=== PATIENT | female | born 1950 | race Caucasian/White ===

== ENCOUNTER 2022-01-27 12:44 | Outpatient (CLI) | payer MEDICARE, SELFPAY ==
[2022-01-27 09:26] LABS: Albumin* 4.7 g/dL (3.3-5.0); Chloride* 100 mmol/L (96-114)
[2022-01-27 09:27] LABS: Potassium* 4.4 mmol/L (3.6-5.1); Sodium* 138 mmol/L (135-149)
[2022-01-27 09:29] LABS: Bilirubin Total* 0.5 mg/dL (0.1-1.5); Blood Urea Nitrogen* 19 mg/dL (7-30); Carbon Dioxide* 30 mmol/L (20-32); Cholesterol* 180 mg/dL (90-199); Creatinine* 0.7 mg/dL (0.5-1.5); Estimated Glomerular Filt Rate 91 ml/min; Total Protein* 7.1 g/dL (6.0-8.3)
[2022-01-27 09:30] LABS: Alanine Aminotransferase* 25 U/L (4-35); Alkaline Phosphatase* 63 U/L (40-150); Aspartate Amino Transferase* 31 U/L (12-35); Calcium* 10.1 mg/dL (8.4-10.6); Glucose* 107 mg/dL (60-115); HDL Cholesterol* 68 mg/dL (>=50); LDL Cholesterol Calculated 98 mg/dL (<100); Triglycerides* 69 mg/dL (40-149)
[2022-01-27 09:46] LABS: Vitamin D 25 Hydroxy* 39 ng/mL (30-80)
== END 2022-01-27 12:45 | disposition home or self-care (01) ==
PROVIDERS: PCP Family Medicine; Visit Provider Family Medicine
DX: Z00.00 Encounter for general adult medical examination without abnormal findings (principal); I10 Essential (primary) hypertension; E78.5 Hyperlipidemia, unspecified
CPT/HCPCS: 80053; 80061; 82306

== ENCOUNTER 2022-03-19 09:56 | Outpatient (CLI) | payer MEDICARE, SELFPAY ==
--- OUTSIDE RECORDS SUMMARY | 2022-03-19 09:58 | XMS_ITS | Encounter Summary ---
:1950 Author Organization [place] Address [address] [facility] [place] [address] Care Team Providers Name Role Phone Wendy Gonzalez Primary Care Provider Reason for Visit FARZANEH Occupational Therapy (Routine) - Closed Specialty Diagnoses / Procedures Referred By Contact Refer red To Contact Occupational Therapy Diagnoses Harriett Hand / Dr. Wendy Gonzalez @ [facility] / Medicare & Aetna Wendy Gonzalez [facility] Procedures HAND INITIAL [facility] [address] [place] [address] [address] [place] [address] Phone: Referral ID Status Reason Start Date Expiration Date Visits Requ ested Visits Authorized [id number] Closed 06/08/2018 06/08/2019 30 30 Encounter Details Date Type Department Care Team Description 06/08/2018 Therapy Visit [facility] June, Bilateral thumb pain (Primary Dx); Rehabilitation Services Prasanna Ordoñez osteoarthritis of both first carpometacarpal joints [facility] [address] [place] [address] [facility] [phone] ID [id number] Social History Tobacco Use Types Packs/Day Years Used Date Smoking Tobacco: Never Assessed Sex Assigned at Date Recorded Not on file documented as of this encounter Progress Notes Smita Watkins, CHINO - 06/08/2018 12:00 PM CST Hand Therapy Initial Evaluation Current Date: 06/08/2018 Diagnosis: B CMC OA DOI/ orders: 06/05/18 Referring MD: Wendy Gonzalez Subjective: Starla Watkins is a 67 year old R hand dominant female. Patient reports symptoms of pain and weakness/loss of strength of the bilateral thumbs which occurred due to OA. Left is worse than right. Since onset symptoms are Gradually getting worse.?? Special tests:?? x-ray.?? Previous treatment: none.? General health as reported by patient is excellent.?? Pertinent medical history includes:Asthma, Heart Problems, Osteoarthritis?? Medical allergies:Chlora prep. Surgical history: other: Hysterectomy.?? Medication history: Statin. 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 no limitations Barriers include:none Mobility: No difficulty Transportation: drives Leisure activities/hobbies: Sculpture work, gardening Functional Outcome Measure: See flowsheet Objective: Pain Level Report VAS(0-10) 06/08/2018 At Rest: 0-1/10 With Use: 06/25 Report of Pain: Location: thumb Pain Quality: Aching and Sharp Frequency: intermittent Pain is worst: daytime or nighttime Exacerbated by: Opening jars, abducting thumb Relieved by: otc medications Progression: Slowing getting worse ROM: Pain Report: - none + mild ++ moderate +++ severe Thumb 06/08/2018 AROM(PROM) R L MP 60 60 IP 55 55 RAbd 50 50 PAbd 45 45 Kapandji Opposition Scale (0-10/10) 10 10 Thumb Observation/Appearance: Robison: + = present/ - = not observed 06/08/2018 Shoulder deformity present over CMC R:+ L:+ Volar subluxation present R:- L:- Edema over the CMC joint R:- L:- Noted collapse of MP into hyperextension during pinch R:+ L:+ Tenderness at CMC R:- L:+ Provocative Tests: Pain Report: - none + mild ++ moderate +++ severe MMT 5/06/08/2018 Abduction stress test R:4/5 + L: 4/5 + Extension stress test R:5/5 + L:5/5 + Strength: (Measured in pounds) Pain Report: - none + mild ++ moderate +++ severe Sales Audit Clerk 06/08/2018 Trials R L 1 55 45 Lat Pinch 06/08/2018 Trials R L 1 15 12 Assessment: Patient presents with symptoms consistent with diagnosis of CMC thumb arthritis, with conservative intervention. 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 Rehab Potential: Good- Return to full activity, some limitations. Patient will benefit from skilled Occupational Therapy to increased ROM, flexibility, and stability of the thumb and decrease pain to return to previous activity level and resume normal daily tasks andto reach their rehab potential. Barriers to Learning: No barrier Communication Issues: Patient appears to be able to clearly communicate and understand verbal and written communication and follow directions correctly. Chart Review: Chart Review and Simple history review with patient Identified Performance Deficits: dressing, home establishment and management, meal preparation and cleanup and leisure activities Assessment of Occupational Performance: 1-3 Performance Deficits Clinical Decision Making (Complexity): Low complexity Treatment Explanations: The following has been discussed with the patient, Rx ordered/plan of care Anticipated outcomes Possible risks and side effects Plan: Frequency: 1 X week, once daily Duration: for 4 weeks Treatment Plan: Modalities: Paraffin Therapeutic Exercise: AROM, Isometrics, and Stabilization exercises of the Thumb CMC, including active and resisted abduction, 1st DI strengthening Manual Techniques: Joint Mobilization or reseating of the trapezium, self MFR to thumb adductor withclip Orthosis fabrication: Hand based Thumb Spica, Custom neoprene support Education: Anatomy of CMC, joint protection principles, adaptive equipment as needed Discharge Plan: Achieve all LTG Crowley in home treatment program. Reach maximal therapeutic benefit. Home Program: Hand based Thumb Spica orthosis for work/heavy tasks such as sculpting Next Visit: Warmth 1st web release with clip Self CMC mobilization on chest Place and hold pinch Thumb Stabilization Program with hard ???C??? and index abd Incorporate joint protection into daily functional activities Adaptive equipment as needed Comfort Cool PRN at night MINER documented in this encounter Plan of Treatment Not on filedocumented as of this encounter Procedures Procedure Name Priority Date/Time Associated Diagnosis Comme nts HC OT MEAGAN ANTHONY Routine 06/08/2018 1:08 PM Bilateral Candice mb Pain COMPLEXITY LEAD MINER Primary Osteoarthritis Of Both First Carpometacarpal Joints documented in this encounter Visit Diagnoses Diagnosis Bilateral thumb pain - Primary Primary osteoarthritis of both first car pometacarpal joints Primary localized osteoarthrosis, hand documented in this encounter Care Teams Planning Technician Relationship Specialty Start Date End Date Wendy Gonzalez PCP - General Family Practice 06/08/18 documented as of this encounter
--- OUTSIDE RECORDS SUMMARY | 2022-03-19 09:58 | XMS_ITS | Encounter Summary ---
:1950 Author Organization [place] Address [address] [place] [address]. [place] [address] Care Team Providers Name Role Phone Unavailable Primary Care Provider Unavailable Encounter Details Date Type Department Care Team Description 01/31/2006 Historic Results INTERFACED REPORT Interface, Naomie escobar MD Social History Tobacco Use Types Packs/Day Years Used Date Smoking Tobacco: Never Assessed Sex Assigned at Date Recorded Not on file documented as of this encounter Plan of Treatment Not on filedocumented as of this encounter Procedures Procedure Name Priority Date/Time Associated Diagnosis Comme nts EKG 12 LEAD Routine 01/31/2006 9:48 AM Results f or this CDT procedure are i n the results section . documented in this encounter Results EKG 12 LEAD (01/31/2006 9:48 AM CDT) Component Value Ref Range Test Analysis Performed Pathologis t Method Time At Signature Ventricular Rate 62 BPM RADIOLOGY RESULTS Atrial Rate 62 BPM RADIOLOGY RESULTS LA Interval 150 ms RADIOLOGY RESULTS QRS Duration 96 ms RADIOLOGY RESULTS QT 404 ms RADIOLOGY RESULTS QTc 410 ms RADIOLOGY RESULTS P [place] 57 degrees RADIOLOGY RESULTS R AXIS 74 degrees RADIOLOGY RESULTS T [place] 51 degrees RADIOLOGY RESULTS Interpretation AGE AND GENDER SPECIFIC ECG ANALYSIS RADIOLOGY ECG Sinus rhythm with sinus arrhythmia RESULTS Possible Left atrial enlargement Borderline ECG Unconfirmed report - interpretation of this ECG is compute r generated - see medical record for final interpretation Specimen Anatomical Collection Method Collection Time Receive d Time (Source) Location / / Volume Laterality 01/31/2006 9:48 AM 6 6:11 CDT PM CDT Transcripton Interface ECG ORDERABLES Performing Organization Address City/State/ZIP Code Phon e Number RADIOLOGY RESULTS documented in this encounter Visit Diagnoses Not on filedocumented in this encounter
--- OUTSIDE RECORDS SUMMARY | 2022-03-19 09:58 | XMS_ITS | Encounter Summary ---
:1950 Author Organization [place] Address [facility] [place] [address] Care Team Providers Name Role Phone Unavailable Primary Care Provider Unavailable Encounter Details Date Type Department Care Team Description 01/31/2006 Emergency room Tiffanie Norwood EMERGENCY PHYSIC [place] [place] [address] [place] [address] (Wo rk) Social History Tobacco Use Types Packs/Day Years Used Date Smoking Tobacco: Never Assessed Sex Assigned at Date Recorded Not on file documented as of this encounter Progress Notes Interface, Broodmare Barn Groom - 03/19/2006 1:34 AM CHEF DE PARTIE FINAL CHIEF COMPLAINT: Chest pain. HISTORY OF PRESENT ILLNESS: The patient is a 55-year-old female who started having upper back pain,and now she is having pain into her chest. She has had some nausea and diaphoresis, no shortness of breath, no arm pain or radiation into the neck. She describes the chest pain as a throbbing pain, nowit is more just a slight discomfort. She also has had a little bit of a cough but no fevers, and no chest pain at this time is on the left side of her chest, and when it happens, it lasts 1-2 hours. PAST MEDICAL HISTORY: Unremarkable. PAST SURGICAL HISTORY: Unremarkable. SOCIAL HISTORY: Unremarkable. Patient does not smoke. FAMILY HISTORY: There is a history of heart disease in the family. REVIEW OF SYSTEMS: As noted in HPI. All other systems are negative. MEDICATIONS: See attached medication list. ALLERGIES: Advair. PHYSICAL EXAMINATION: GENERAL: The patient is alert and cooperative. VITAL SIGNS: Blood pressure 169/94, pulse 78, respiratory rate 18, temperature 97.8 and O2 sats 98%on room air. HEENT: Head is normocephalic and atraumatic. Pupils are equal, round and reactive to light. EOMs are intact. Oropharynx is pink, moist and intact. No lesions noted. External auditory canals are without drainage. NECK: Supple, full range of motion is noted. CARDIAC: Regular rate and rhythm without murmurs. PULMONARY: Clear bilaterally, no rhonchi or wheezes. ABDOMEN: Soft, positive bowel sounds and nontender. EXTREMITIES: Normal strength, normal range of motion. Pulses full and symmetric. Sensation appears normal. There is no lower extremity edema present. NEUROLOGIC: Cranial nerves II through XII appear grossly intact. SKIN: [place], warm and dry. EMERGENCY DEPARTMENT COURSE: The patient was placed on continuous pulse oximetry, drapery sewer hand and blood pressure monitor. I did not appreciate any ectopy on the drapery sewer hand. An EKG was obtained, and it was a normal sinus rhythm, ventricular rate of 66, OK, QRS, were normal. The patient's troponin was less than 0.04, myoglobin 45. Hemogram and platelet count was normal. Basic metabolic count was normal. A CAT scan of the chest to rule out the possibility of PE was completed and was negative for any acute findings, although she did have one enlarged hilar lymph node. The patient's pain went away on its own in the ED. DIAGNOSIS: Chest pain. PLAN: The patient to be admitted to CPEU for second set of enzymes and stress echo. Electronically signed on 03/19/2006 01:34 by TIFFANIE NORWOOD MD MT: [id number] Name: STARLA CAMILO MRN: [id number] Account: [id number] : 1950 Visit Date: 01/31/2006 Document: [id number] DE PARTIE documented in this encounter Plan of Treatment Not on filedocumented as of this encounter Visit Diagnoses Not on filedocumented in this encounter
--- OUTSIDE RECORDS SUMMARY | 2022-03-19 09:58 | XMS_ITS | Encounter Summary ---
:1950 Author Organization [place] Address [address] [place] [address]. [place] [address] Care Team Providers Name Role Phone Wendy Gonzalez Primary Care Provider Encounter Details Date Type Department Care Team Description 03/04/2021 Travel Social History Tobacco Use Types Packs/Day Years Used Date Smoking Tobacco: Never Assessed Sex Assigned at Date Recorded Not on file COVID-19 Exposure Response Date Recorded In the last month, have you been in contact with No / Unsure 03/04/2021 9:50 AM MAKER UP FOLDING someone who was confirmed or suspected to have Coronavirus / COVID-19? documented as of this encounter Plan of Treatment Not on filedocumented as of this encounter Visit Diagnoses Not on filedocumented in this encounter Care Teams Shoe Cleaner Relationship Specialty Start Date End Date Wendy Gonzalez PCP - General Family Practice 06/08/18 documented as of this encounter
--- OUTSIDE RECORDS SUMMARY | 2022-03-19 09:58 | XMS_ITS | Clinical Summary ---
:1950 Author Organization [facility] [place] [address] Care Team Providers Name Role Phone Vikki Crump MD Primary Care Provider [phone] Allergies No known active allergies Medications Medication Sig Dispensed Refills Start Date End Date Status MOXIFLOXACIN 0.1% Use as directed 0.2 mL 0 11/01/2016 Active INTRACAMERAL INJECTION for procedure. 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 White coat syndrome with diagnosis of hypertension Social History Tobacco Use Types Packs/Day Years Used Date Never Assessed Sex Assigned at Date Recorded Not on file Plan of Treatment Health Maintenance Due Date Last Done Comments COVID-19 vaccine series (#1) 1950 Tdap 06/23/1959 Depression screening for age 12+ 1960 BMI (ht and wt on same day) for age 18+ 1966 Hepatitis C screening for age 18-79 1966 Tetanus booster 1968 Colonoscopy through age 75 1993 Lipids for age 45-75 1993 Mammogram for age 45-75 1993 Zoster (shingles) series for age 50+ (1 of 2) 1998 DEXA/DXA scan for age 65+ 2013 Medicare Wellness for age 65+ 2013 Pneumococcal series for age 65+ (1 - PCV) 2013 Influenza for age 65+ 12/17/2021 Results Not on filefrom Last 3 Months Insurance Payer Benefit Plan / Subscriber ID Effective Dates Phone Addre ss Type Group Resource[employer] [id number] 2020-Present [address] [place] [address] Care Teams Customer Account Executive Relationship Specialty Start Date End Date Vikki Crump MD PCP - General Family Practice 04/28/201999 [place] [address]
--- OUTSIDE RECORDS SUMMARY | 2022-03-19 09:58 | XMS_ITS | Encounter Summary ---
:1950 Author Organization [place] Address [address] [place] [place] [address] Care Team Providers Name Role Phone Wendy Gonzalez Primary Care Provider Encounter Details Date Type Department Care Team Description 06/15/2018 Travel Social History Tobacco Use Types Packs/Day Years Used Date Smoking Tobacco: Never Assessed Sex Assigned at Date Recorded Not on file documented as of this encounter Plan of Treatment Not on filedocumented as of this encounter Visit Diagnoses Not on filedocumented in this encounter Care Teams Load Out Person Relationship Specialty Start Date End Date Wendy Gonzalez PCP - General Family Practice 06/08/18 documented as of this encounter
--- OUTSIDE RECORDS SUMMARY | 2022-03-19 09:58 | XMS_ITS | Encounter Summary ---
:1950 Author Organization [place] Address [address] [place] [address] Care Team Providers Name Role Phone Wendy Gonzalez Primary Care Provider Reason for Visit FARZANEH Occupational Therapy (Routine) - Closed Specialty Diagnoses / Procedures Referred By Contact Refer red To Contact Occupational Therapy Diagnoses Bilat Hand / Dr. Wendy Gonzalez @ [facility] / Medicare & Aetna Wendy Gonzalez [facility] Procedures HAND INITIAL [facility] [address] [place] [address] [address] [place] [address] Phone: Referral ID Status Reason Start Date Expiration Date Visits Requ ested Visits Authorized [id number] Closed 06/08/2018 06/08/2019 30 30 Encounter Details Date Type Department Care Team Description 06/15/2018 Therapy Visit [facility] June, Bilateral hand pain Rehabilitation Services João boles OTR (Primary Dx) [facility] [place] [id number] [facility] [id number] [place] [address] [address] [place] [address] [place] [address] [phone] Social History Tobacco Use Types Packs/Day Years Used Date Smoking Tobacco: Never Assessed Sex Assigned at Date Recorded Not on file documented as of this encounter Plan of Treatment Not on filedocumented as of this encounter Procedures Procedure Name Priority Date/Time Associated Diagnosis Comme nts ZZC THERAPEUTIC Routine 06/18/2018 9:50 PM 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
--- OUTSIDE RECORDS SUMMARY | 2022-03-19 09:58 | XMS_ITS | Encounter Summary ---
:1950 Author Organization [place] Address [address] [facility] [place] [address] Care Team Providers Name Role Phone Unavailable Primary Care Provider Unavailable Encounter Details Date Type Department Care Team Description 01/31/2006 Emergency room Nancy Orr MD EMERGENCY PHYSIC [facility] [address] [place], [place] [address] (Wo rk) Social History Tobacco Use Types Packs/Day Years Used Date Smoking Tobacco: Never Assessed Sex Assigned at Date Recorded Not on file documented as of this encounter Progress Notes Nancy Orr MD - 05/11/2006 12:24 PM DIRECTOR INTELLIGENCE ANALYSIS PROGRAMS FINAL CPEU ADDENDUM EMERGENCY DEPARTMENT COURSE: The patient is a 55-year-old female admitted to CPEU by Dr. Norwood. Please review his dictation. The patient was seen and evaluated for chest and back pain. The patient was admitted to CPEU and had 2 sets of cardiac enzymes, all of which were negative. She was ordered a CT of the chest. This was negative for dissection. There was a slightly prominentright hilar lymph node, but otherwise normal. The patient did not have dissection and no PE. The patient was admitted to CPEU for evaluation of cardiac chest pain. Her second enzyme was negative. She was sent for stress test this morning around 11:00 a.m. This was read by Dr. Ghotra as completely normal. I did return to discuss symptoms with the patient. The patient seems to have 2 symptoms, including upper back pain for the last month. She also has intermittent chest pain. Chest pain is very atypical, is not associated with exertion or respiration. Ultimately, her stress test and her CT of the chestwere both normal here. I did return to discuss symptoms with the patient. We discussed treatment forpain. At least at this point, we will offer some medications for musculoskeletal back pain and have her follow up with her regular doctor for reevaluation. The patient did agree to the plan and will be discharged. PLAN: Follow up with Dr. Walden for reevaluation. Return with worsening symptoms. Ibuprofen, Valium 2.5-5 as a muscle relaxant. If still pain, Vicodin, dispensed 15. Follow up with Dr. Walden in thenext 5-7 days for reevaluation. DISCHARGE DIAGNOSES: 1. Atypical chest pain. 2. Possible musculoskeletal back pain. Electronically signed on 05/11/2006 12:23 by NANCY ORR MD MT: [id number] Name: STARLA CAMILO Account: [id number] : 1950 Visit Date: 01/31/2006 Document: [id number] CTOR INTELLIGENCE ANALYSIS PROGRAMS documented in this encounter Plan of Treatment Not on filedocumented as of this encounter Visit Diagnoses Not on filedocumented in this encounter
--- OUTSIDE RECORDS SUMMARY | 2022-03-19 09:58 | XMS_ITS | Encounter Summary ---
:1950 Author Organization [place] Address [address] [facility] [place] [address] Care Team Providers Name Role Phone Wendy Gonzalez Primary Care Provider Reason for Visit FARZANEH Occupational Therapy (Routine) - Closed Specialty Diagnoses / Procedures Referred By Contact Refer red To Contact Occupational Therapy Diagnoses Bilkm Hand / Dr. Wendy Gonzalez @ [facility] / Medicare & Aetna Wendy Gonzalez [facility] Procedures HAND INITIAL [facility] [address] [place] [address] [address] [place] [address] Phone: Referral ID Status Reason Start Date Expiration Date Visits Requ ested Visits Authorized [id number] Closed 06/08/2018 06/08/2019 30 30 Encounter Details Date Type Department Care Team Description 06/28/2018 Therapy Visit [facility] June, Bilateral hand pain Rehabilitation Services CHINO Weber (Primary Dx) [facility] [place] [id number] [place] [address] [address] [place] [address] [place] [address] [phone] Social History Tobacco Use Types Packs/Day Years Used Date Smoking Tobacco: Never Assessed Sex Assigned at Date Recorded Not on file documented as of this encounter Progress Notes Smita Watkins OTR - 06/28/2018 10:00 AM CDT Discharge Note - Hand Therapy Current Date: 06/08/2018 Diagnosis: B CMC OA YURI/ orders: 06/05/18 Referring MD: Wendy Gonzalez Current Date: 06/28/2018 Initial Evaluation Date: 06/08/18 Reporting period is from 06/08/18 to 06/28/2018 Number of Visits: 3 Subjective: Subjective changes as noted by patient: The left handed custome neoprene orthosis for night was veryhelpful in reducing pain, woke up with less pain in the moring. The thermoplastic orthoses are helping during the day as well to reduce pain with work tasks. Would like an orthosis for the right hand for night time. Pt also stated the AE handout was helpful and that she is indep with her HEP. Pt agrees to be discharged from hand therapy today and cont. HEP. Functional changes noted by patient: Improvement in Recreational Activities and Inspector Aide Patient has noted adverse reaction to: None Functional Outcome Measure: See flowsheet Objective: Pain Level Report VAS(0-10) 06/08/2018 06/29/18 At Rest: 0-1/10 0-1/10 With Use: 06/2510 Assessment: Response to therapy has been improvement to: Pain: frequency is less and intensity of pain is decreased Appropriateness of Rx I have re-evaluated this patient and find that the nature, scope, duration andintensity of the therapy is appropriate for the medical condition of the patient. Overall Assessment: Patient's symptoms are resolving. Patient is independent in home exercise program. Patient is ready to be discharged from therapy and continue their home treatment program. STG/LTG: See goal sheet for details and updates. Plan: Frequency/Duration: Discharge from Hand Therapy; continue home program. Home Program: Hand based Thumb Spica orthosis for house work/heavy tasks such as sculpting Warmth 1st web release with clip Thumb Stabilization Program with hard ???C??? and index abd Incorporate joint protection into daily functional activities Adaptive equipment as needed Comfort It Auditor with custom cmc support at night documented in this encounter Plan of Treatment Not on filedocumented as of this encounter Procedures Procedure Name Priority Date/Time Associated Diagnosis Comme [facility] THERAPEUTIC Routine 06/28/2018 1:12 PM CDT Bilateral hand pain EXERCISES documented in this encounter Visit Diagnoses Diagnosis Bilateral hand pain - Primary Pain in limb documented in this encounter Care Teams Water Plant Pump Operator Supervisor Relationship Specialty Start Date End Date Wendy Gonzalez PCP - General Family Practice 06/08/18 documented as of this encounter
--- OUTSIDE RECORDS SUMMARY | 2022-03-19 09:58 | XMS_ITS | Encounter Summary ---
:1950 Author Organization [facility] Address [address] [place] [id number] Care Team Providers Name Role Phone Wendy Gonzalez Primary Care Provider Encounter Details Date Type Department Care Team Description 06/08/2018 Travel Social History Tobacco Use Types Packs/Day Years Used Date Smoking Tobacco: Never Assessed Sex Assigned at Date Recorded Not on file documented as of this encounter Plan of Treatment Not on filedocumented as of this encounter Visit Diagnoses Not on filedocumented in this encounter Care Teams Coordinator Volunteer Services Relationship Specialty Start Date End Date Wendy Gonzalez PCP - General Family Practice 06/08/18 documented as of this encounter
--- OUTSIDE RECORDS SUMMARY | 2022-03-19 09:58 | XMS_ITS | Clinical Summary ---
:1950 Author Organization [facility] Address [address] [place] [address]. [place] [address] Care Team Providers Name Role Phone Wendy Gonzalez Primary Care Provider Active Problems Problem Noted Date Osteoarthritis of both thumbs 03/04/2021 Resolved Problems Problem Noted Date Resolved Date Bilateral hand pain 06/15/2018 06/28/2018 Social History Tobacco Use Types Packs/Day Years Used Date Smoking Tobacco: Never Assessed Sex Assigned at Date Recorded Not on file Plan of Treatment Health Maintenance Due Date Last Done Comments ADVANCE CARE PLANNING 1950 ANNUAL REVIEW OF HM ORDERS 1950 CT COLONOGRAPHY 1950 DEXA 1950 FIT-DNA (Cologuard) 1950 FIT 1950 FLEX SIG 1950 MAMMO SCREENING 1950 COLONOSCOPY 1958 COLORECTAL CANCER SCREENING 1958 HEPATITIS C SCREENING 1966 LIPID 1993 FALL RISK ASSESSMENT 2013 MEDICARE ANNUAL WELLNESS 2013 VISIT PHQ-2 (once per calendar 04/18/2021 year) COVID-19 Vaccine (4 - 04/22/2021 02/25/2021, 07/10/2020, Booster for Moderna series) 06/12/2020 INFLUENZA VACCINE (#1) 2021 01/19/2021, 12/17/2019, 01/30/2019, Additional history exists DTAP/TDAP/TD IMMUNIZATION 11/09/2022 11/09/2012, 06/19/2008 , (3 - Td or Tdap) 01/10/1998 Pneumococcal Vaccine: 65+ Completed 12/09/2014, 12/05/2013 Years ZOSTER IMMUNIZATION Completed 02/19/2020, 12/20/2019, 11/23/2011 IPV IMMUNIZATION Aged Out No longer eligi ble based on patient 's age to complete this topic MENINGITIS IMMUNIZATION Aged Out No longe r eligible based on patient 's age to complete this topic Insurance Payer Benefit Plan / Subscriber ID Effective Dates Phone Addre ss Type Group [employer] SocialSmack [id number] 2021-Theo [phone] [id number] Medicare AETNA MEDICARE t 1 [facility] [id number] Care Teams Policy Value Calculator Relationship Specialty Start Date End Date Wendy Gonzalez PCP - General Family Practice 06/08/18
--- OUTSIDE RECORDS SUMMARY | 2022-03-19 09:58 | XMS_ITS | Encounter Summary ---
:1950 Author Organization [facility] Address [facility] [place] [address] Care Team Providers Name Role Phone Wendy Gonzalez Primary Care Provider Reason for Visit Rehab Therapy Occupational Therapy (Routine) - Closed Specialty Diagnoses / Procedures Referred By Contact Refer red To Contact Occupational Therapist Diagnoses *CERT REQUIRED#Thumbs/hand / Dr. Carmel Crump MD / Medicare Aetna -TTC ins Vikki Crump [facility] Hand / Occupational Procedures HAND INITIAL MD [facility] Therapy - MEDICAL [id number] [place] [address] [place], [place] Fax: [phone] Phone: Fax: Referral ID Status Reason Start Date Expiration Date Visits Requ ested Visits Authorized [id number] Closed 03/04/2021 04/17/2021 40 40 Encounter Details Date Type Department Care Team Description 03/04/2021 Therapy Visit [facility] Cathie Yip, Osteoar thritis of both Rehabilitation Services OT thumbs (Primary Dx) [employer] [facility] [address] [place] [address] [place], [place] [address] [address] [place] [address] [phone] Social History Tobacco Use Types Packs/Day Years Used Date Smoking Tobacco: Never Assessed Sex Assigned at Date Recorded Not on file COVID-19 Exposure Response Date Recorded In the last month, have you been in contact with No / Unsure 03/04/2021 9:50 AM WOOD HEEL BACK LINER someone who was confirmed or suspected to have Coronavirus / COVID-19? documented as of this encounter Progress Notes Cathie Yip, OT - 03/04/2021 10:00 AM CST Hand Therapy Initial Evaluation Current Date: 03/04/2021 Diagnosis: B thumb OA DOI: ~2018 (01/19/2021 order date) Subjective: Starla Watkins is a 70 year old female. Patient reports symptoms of the bilateral thumbs which occurred due to gradual onset. Since onset symptoms are Unchanged General health as reported by patient is good. Pertinent medical history includes:High Blood Pressure, History of Fractures, Osteoarthritis Medical allergies: see chart. Surgical history: other: hysterectomy. Medication history: High Blood Pressure. 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 Previous treatment: hand therapy in 2019 Barriers include:none Mobility: No difficulty Transportation: drives Currently working in normal job without restrictions Leisure activities/hobbies: dog breeding/showing, sculptures Other: Pt requested splints only, reported compliance with previous HEP Functional Outcome Measure: Upper Extremity Functional Index Score: SCORE: Column Totals: /80: 72 (A lower score indicates greater disability.) Objective: Pain Level (Scale 0-10) 03/04/2021 At Rest 04/27 With Use 04/27 Pain Description Date 03/04/2021 Location hand and thumb Pain Quality Aching and Dull Frequency intermittent Pain is worst daytime Exacerbated by gardening, sculpture work, housework Relieved by heat, rest and splints Progression Unchanged Thumb Observation/Appearance - none + mild ++ moderate +++ severe 03/04/2021 Shoulder deformity present over CMC R: ++ L: ++ Edema over the CMC joint R: +++ L: + Noted collapse of MP into hyperextension during pinch R: ++ L: + Palpation Pain Report: - none + mild ++ moderate +++ severe 03/04/2021 CMC Joint Line R: + L: + Thenar Stickney R: + L: + Web Space R: + L: + 1st DC R: - L: - Radial Styloid R: - L: - FCR R: - L: - Assessment: Patient presents with symptoms consistent with diagnosis of bilateral thumb CMC thumb arthritis, with conservative intervention. Patient's limitations or Problem List includes: Pain, Weakness and Decreased stability of the bilateral thumb which interferes with the patient's ability to perform Self Care Tasks (dressing, eating, bathing, hygiene/toileting), Work Tasks, Sleep Patterns, Recreational Activities, Induction Coordination Power Engineer andDriving as compared to previous level of function. Rehab Potential: Good - Return to full activity, some limitations Patient will benefit from skilled Occupational Therapy to increase overall strength and decrease pain to return to previous activity level and resume normal daily tasks and to reach their rehab potential. Barriers to Learning: No barrier Communication Issues: Patient appears to be able to clearly communicate and understand verbal and written communication and follow directions correctly. Chart Review: Chart Review, Brief history including review of medical and/or therapy records relating to the presenting problem and Simple history review with patient Identified Performance Deficits: bathing/showering, feeding, functional mobility, home establishmentand management, meal preparation and cleanup, shopping, work and leisure activities Assessment of Occupational Performance: 3-5 Performance Deficits Clinical Decision Making (Complexity): Low complexity Treatment Explanation: The following has been discussed with the patient: RX ordered/plan of care Anticipated outcomes Possible risks and side effects Treatment Plan: Modalities: US, Fluidotherapy and Paraffin Therapeutic Exercise: AROM, AAROM, PROM, Tendon Gliding, Blocking, Reverse Blocking, Place and Hold,Contract Relax, Extensor Tracking, Isotonics, Isometrics and Stabilization Neuromuscular re-education: Nerve Gliding, Coordination/Dexterity, Sensory re- education, Desensitization, Kinesthetic Training, Proprioceptive Training, Posture, Kinesiotaping, Strain Counter Strain, Isometrics, Stabilization Manual Techniques: Coordination/Dexterity, Joint mobilization, Scar mobilization, Friction massage, Myofascial release, Manual edema mobilization Orthotic Fabrication: Hand based Self Care: Self Care Tasks, Ergonomic Considerations and Work Tasks Discharge Plan: Achieve all LTG [place] in home treatment program. Reach maximal therapeutic benefit. Home Program: Warmth Self CMC mobilization Thumb Stabilization Program Hand based Thumb Spica Orthosis Incorporate joint protection into daily functional activities Adaptive equipment as needed Next Visit: Check fit of orthoses Place and hold pinch Self mobilization HEEL BACK LINER Cathie Yip OT - 03/04/2021 10:00 AM CST Images from the original note were not included. [facility] OUTPATIENT Occupational Therapy ORTHOPEDIC EVALUATION PLAN OF TREATMENT FOR OUTPATIENT REHABILITATION (COMPLETE FOR INITIAL CLAIMS ONLY) Patient's Last Name, First Name, M.I. Date of : 1950 Starla Watkins A Provider???s Name: [facility] Start of Care Date: 03/04/21 Onset Date: 01/19/21 (MD order date) Type: ___PT __X_OT Medical Diagnosis: No diagnosis found. 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 Physician Signature Date X Certification Date From: 03/04/21 Certification Date To: 06/01/21 Referring Provider: Vikki Crump Initial Assessment See Epic Evaluation SOC Date: 03/04/21 HEEL BACK LINER Cathie Yip OT - 03/04/2021 10:00 AM CST Discharge Summary - Hand Therapy Patient did not return to therapy. Assume all goals were met to patient's satisfaction. D/C from hand therapy. HEEL BACK LINER documented in this encounter Plan of Treatment Not on filedocumented as of this encounter Procedures Procedure Name Priority Date/Time Associated Diagnosis Comme nts AL OT EVAL, LOW Routine 03/04/2021 12:17 PM Osteoarthritis of both COMPLEXITY WOOD HEEL BACK LINER thumbs documented in this encounter Visit Diagnoses Diagnosis Osteoarthritis of both thumbs - Primary documented in this encounter Care Teams Cord Splicer Relationship Specialty Start Date End Date Wendy Gonzalez PCP - General Family Practice 06/08/18 documented as of this encounter
--- OUTSIDE RECORDS SUMMARY | 2022-03-19 09:58 | XMS_ITS | Encounter Summary ---
:1950 Author Organization [facility] Address [address] [place] [address]. [place] [address] Care Team Providers Name Role Phone Unavailable Primary Care Provider Unavailable Encounter Details Date Type Department Care Team Description 01/31/2006 Results Only [facility] Results [facility] [place] [address] [place] [address] (Wo rk) Social History Tobacco Use Types Packs/Day Years Used Date Smoking Tobacco: Never Assessed Sex Assigned at Date Recorded Not on file documented as of this encounter Plan of Treatment Not on filedocumented as of this encounter Procedures Procedure Name Priority Date/Time Associated Diagnosis Comme [facility] E[facility] HEART Routine 01/31/2006 11:02 AM Resul ts for this XTHORACIC, CDT procedure are i n STRESS/REST the results section. CT THORAX W/O Routine 01/31/2006 7:00 AM Resul ts for this CONT CDT procedure are i n the results section. documented in this encounter Results ECHO HEART, FULL STRESS/REST (01/31/2006 11:02 AM CDT) Anatomical Region Laterality Modality Other Specimen (Source) Anatomical Collection Method Collection Time Re ceived Time Location / / Volume Laterality 01/31/2006 11:02 AM CDT Impressions 02/03/2006 9:19 AM CDT Tape #[id number] ?? Technologist Initials: ??JT ?? HISTORY: ??The patient is a 55-year-old female who presents for 3-4 days of chest discomfort. ??Resting bloo d pressure 122/88. ??Heart rate 97 and regular. ??Electrocardiogram demo nstrates normal sinus rhythm without ST or T wave abnormalities. ?? INTERPRETATION: 1. ??The patient exercised 9 minutes 14 seconds on a Taz protocol achieving a maximal heart rate of 166, m aximal blood pressure 190/78, and a rate pressure product of 31,540. ? ?This represents 102% of the target maximal heart rate. ??There is no functional aerobic impairment. ??The patient was able to ac hieve 10.4 METS of cardiac work. 2. ??The test is stopped due to fatigue . ??The patient did not experience chest discomfort. 3. ??Occasional premature ventricular c ontractions were seen late in exercise and rarely in recovery. ??No co mplex ectopy. ??The EKG demonstrated no significant ST elevation s or depressions in any leads. 4. ??Echocardiogram at rest demonstrate s normal left ventricular size and systolic function with ejection frac tion estimated at 60-65%. ?? Mitral and aortic valves appear structur ally normal. ??Aortic root is not enlarged. 5. ??With exercise, hyperdynamic wall m otion is seen in all quadrants. ??Appropriate decrease in lef t ventricular end-systolic cavity size is noted. ?? CONCLUSIONS: ?? 1. ??No evidence of cardiac ischemia or infarction. 2. ??No reported chest discomfort. 3. ??Occasional premature ventricular c ontractions during exercise and recovery without complex ectopy. ?? 4. ??Resting ejection fraction is 60-65 % without regional wall motion abnormalities. 5. ??Structurally normal mitral and aor tic valves. Ludin Norwood SPECIAL IMAGING STUDIES CT SCAN CHEST (01/31/2006 7:00 AM CDT) Anatomical Region Laterality Modality Other Specimen (Source) Anatomical Collection Method Collection Time Re ceived Time Location / / Volume Laterality 01/31/2006 7:00 AM CDT Impressions 01/31/2006 1:[address] CHEST WITH CONTRAST - 01/31/2006 ?? CLINICAL HISTORY: Chest pain. Rule out P E. ?? TECHNIQUE: Post contrast axial images wi th coronal reconstructions and 100 ml of Optiray. ?? FINDINGS: ? 1. ?? No ?pulmonary embolu s. ? 2. ?? Aorta within ?normal limits. ? 3. ?? Lungs ?are clear oth er than minimal atelectasis at the right medial lung base ?adjacent to a prominent osteophyte. ? 4. ?? One ?slightly promin ent right hilar lymph node. Mediastinal and hilar ?structures are otherwise within normal limits. ? 5. ?? Visualized ?upper ab dominal organs are normal. ? 6. ?? Degenerative ?change s of the spine. ? 7. ?? Results ?discussed w ith Dr. Ludin Norwood. Ludin Norwood SPECIAL [facility] STUDIES documented in this encounter Visit Diagnoses Not on filedocumented in this encounter
--- OUTSIDE RECORDS SUMMARY | 2022-03-19 09:58 | XMS_ITS | Encounter Summary ---
:1950 Author Organization [facility] Address [address] [place] [address] Care Team Providers Name Role Phone Wendy Gonzalez Primary Care Provider Encounter Details Date Type Department Care Team Description 06/28/2018 Travel Social History Tobacco Use Types Packs/Day Years Used Date Smoking Tobacco: Never Assessed Sex Assigned at Date Recorded Not on file documented as of this encounter Plan of Treatment Not on filedocumented as of this encounter Visit Diagnoses Not on filedocumented in this encounter Care Teams Customs Compliance Analyst Relationship Specialty Start Date End Date Wendy Gonzalez PCP - General Family Practice 06/08/18 documented as of this encounter
--- OUTSIDE RECORDS SUMMARY | 2022-03-19 09:58 | XMS_ITS | Encounter Summary ---
:1950 Author Organization [facility] Address [address] [place] [address] Care Team Providers Name Role Phone Unavailable Primary Care Provider Unavailable Encounter Details Date Type Department Care Team Description 01/31/2006 Historic Results INTERFACED REPORT Grecia Norwood [facility] [place] [address] [place] [address] (Wo rk) Social History Tobacco Use Types Packs/Day Years Used Date Smoking Tobacco: Never Assessed Sex Assigned at Date Recorded Not on file documented as of this encounter Plan of Treatment Not on filedocumented as of this encounter Procedures Procedure Name Priority Date/Time Associated Diagnosis Comme nts EKG 12 LEAD Routine 01/31/2006 5:41 AM Results f or this CDT procedure are i n the results section . documented in this encounter Results EKG 12 LEAD (01/31/2006 5:41 AM CDT) Component Value Ref Range Test Analysis Performed Pathologis t Method Time At Signature Ventricular Rate 66 BPM RADIOLOGY RESULTS Atrial Rate 66 BPM RADIOLOGY RESULTS [place] Interval 152 ms RADIOLOGY RESULTS QRS Duration 100 ms RADIOLOGY RESULTS QT 394 ms RADIOLOGY RESULTS QTc 413 ms RADIOLOGY RESULTS P [place] 38 degrees RADIOLOGY RESULTS R AXIS 40 degrees RADIOLOGY RESULTS T [place] 38 degrees RADIOLOGY RESULTS Interpretation AGE AND GENDER SPECIFIC ECG ANALYSIS RADIOLOGY ECG Sinus rhythm RESULTS Possible Left atrial enlargement Borderline ECG Unconfirmed report - interpretation of this ECG is compute r generated - see medical record for final interpretation Specimen Anatomical Collection Method Collection Time Receive d Time (Source) Location / / Volume Laterality 01/31/2006 5:41 AM 6 6:20 CDT AM CDT Ludin Norwood ECG ORDERABLES Performing Organization Address City/State/ZIP Code Phon e Number RADIOLOGY RESULTS documented in this encounter Visit Diagnoses Not on filedocumented in this encounter
--- OUTSIDE RECORDS SUMMARY | 2022-03-19 09:58 | XMS_ITS | Encounter Summary ---
:1950 Author Organization [facility] Address [address] [facility] [place] [address] Care Team Providers Name Role Phone Unavailable Primary Care Provider Unavailable Encounter Details Date Type Department Care Team Description 01/31/2006 Historic Results [facility] Heart Unknown, [facility] [address] [place] [address] Social History Tobacco Use Types Packs/Day Years Used Date Smoking Tobacco: Never Assessed Sex Assigned at Date Recorded Not on file documented as of this encounter Plan of Treatment Not on filedocumented as of this encounter Procedures Procedure Name Priority Date/Time Associated Diagnosis Comme nts ECHO CARDIAC - HIM SCAN 01/31/2006 12:00 AM CDT - ARCHIVE documented in this encounter Results ECHO CARDIAC - HIM SCAN - ARCHIVE (01/31/2006 12:00 AM CDT) Anatomical Region Laterality Modality Echocardiography Specimen (Source) Anatomical Location Collection Method / Collectio n Time Received Time / Laterality Volume 01/31/2006 Narrative This result has an attachment that is no t available. Provider Scan CV ECHO ORDERABLES documented in this encounter Visit Diagnoses Not on filedocumented in this encounter
--- OUTSIDE RECORDS SUMMARY | 2022-03-19 09:58 | XMS_ITS | Encounter Summary ---
:1950 Author Organization [facility] [place] Address [address] [place] [address]. [place] [address] Care Team Providers Name Role Phone Wendy Gonzalez Primary Care Provider Encounter Details Date Type Department Care Team Description 01/19/2021 Transcribe Orders GENERIC EXTERNAL DATA Megan Crump id DEPARTMENT MD [facility] [address] [address] (Wo rk) Social History Tobacco Use Types Packs/Day Years Used Date Smoking Tobacco: Never Assessed Sex Assigned at Date Recorded Not on file documented as of this encounter Plan of Treatment Not on filedocumented as of this encounter Visit Diagnoses Not on filedocumented in this encounter Care Teams Hand Gluer And Slicer Relationship Specialty Start Date End Date Wendy Gonzalez PCP - General Family Practice 06/08/18 documented as of this encounter
--- OUTSIDE RECORDS SUMMARY | 2022-03-19 09:58 | XMS_ITS | Encounter Summary ---
:1950 Author Organization [facility] Address [address] [place] [address] Care Team Providers Name Role Phone Unavailable Primary Care Provider Unavailable Encounter Details Date Type Department Care Team Description 01/31/2006 Historic Results INTERFACED REPORT [facility] [place] [address] [facility] [place] [address] (Wo rk) Social History Tobacco Use Types Packs/Day Years Used Date Smoking Tobacco: Never Assessed Sex Assigned at Date Recorded Not on file documented as of this encounter Plan of Treatment Not on filedocumented as of this encounter Procedures Procedure Name Priority Date/Time Associated Diagnosis Comme nts TROPONIN I Timed 01/31/2006 9:54 AM Results f or this CDT procedure are i n the results section. TROPONIN I STAT 01/31/2006 5:47 AM Results f or this CDT procedure are i n the results section. HEMOGRAM AND STAT 01/31/2006 5:47 AM Results f or this PLATELET CDT procedure are i n the results section. MYOGLOBIN STAT 01/31/2006 5:47 AM Results f or this CDT procedure are i n the results section. BASIC METABOLIC STAT 01/31/2006 5:47 AM Result s for this PANEL CDT procedure are i n the results section. documented in this encounter Results Troponin I (01/31/2006 9:54 AM CDT) P athologist Signature Troponin I <0.04 0.00 - 0.40 MISYS ug/L Specimen Anatomical Collection Method Collection Time Receive d Time (Source) Location / / Volume Laterality 01/31/2006 9:54 AM 6 9:47 CDT AM CDT [facility] - BLOOD ORDERABLES Performing Organization Address City/State/[facility] Phon e Number MISYS Troponin I (01/31/2006 5:47 AM CDT) P athologist Signature Troponin I <0.04 0.00 - 0.40 MISYS ug/L Specimen Anatomical Collection Method Collection Time Receive d Time (Source) Location / / Volume Laterality 01/31/2006 5:47 AM 6 6:20 CDT AM CDT [facility] - BLOOD ORDERABLES Performing Organization Address [facility] Phon e Number MISYS Myoglobin (01/31/2006 5:47 AM CDT) athologist Signature Myoglobin 45 <120 ug/L MISYS Specimen Anatomical Collection Method Collection Time Receive d Time (Source) Location / / Volume Laterality 01/31/2006 5:47 AM 6 6:20 CDT AM CDT [facility] - BLOOD ORDERABLES Performing Organization Address [facility] Phon e Number MISYS Hemogram and platelet (01/31/2006 5:47 AM CDT) athologist Signature MCV 94 78 - 100 fl MISYS MCH 30.9 26.5 - 33.0 MISYS pg MCHC 33.0 32.0 - 36.0 MISYS g/dL RDW 11.7 10.0 - 15.0 MISYS % RBC Count 4.96 3.8 - 5.2 MISYS 10e12/L WBC 8.0 4.0 - 11.0 MISYS 10e9/L Hemoglobin 15.3 11.7 - 15.7 MISYS g/dL Hematocrit 46.4 35.0 - 47.0 MISYS % Platelet Count 339 150 - 450 MISYS 10e9/L Specimen Anatomical Collection Method Collection Time Receive d Time (Source) Location / / Volume Laterality 01/31/2006 5:47 AM 6 6:20 CDT AM CDT [facility] - BLOOD ORDERABLES Performing Organization Address [facility] Phon e Number MISYS Basic metabolic panel (01/31/2006 5:47 AM CDT) P athologist Signature Sodium 144 133 - 144 MISYS mmol/L Potassium 3.4 3.4 - 5.3 MISYS mmol/L Chloride 105 94 - 109 MISYS mmol/L Carbon Dioxide 29 20 - 32 MISYS mmol/L Glucose 97 60 - 110 MISYS mg/dL Urea Nitrogen 19 7 - 30 MISYS mg/dL Creatinine 0.82 0.60 - MISYS 1.30 mg/dL GFR Estimate 76 >60 MISYS mL/min/1.7 m2 GFR Estimate If >90 >60 MISYS Black mL/min/1.7 m2 Comment: Stages of Chronic Kidney Disease Stage 1: ??GFR 90 or greater and other e vidence of kidney damage* Stage 2: ??GFR 60-89 and other evidence of kidney damage * Stage 3: ??GFR 30-59 Stage 4: ??GFR 15-29 Stage 5: ??GFR less than 15 or dialysis *Chronic kidney disease is defined as ki dney damage or GFR less than 60 mL/min/1.73 m2 for three months or grea ter. ??Kidney damage is defined as pathologic abnormalities or markers or damage, including abnormalities in blood or urine tests or imaging studies. Calcium 9.1 8.5 - 10.4 mg/dL MISYS Anion Gap 10 6 - 17 mmol/L MISYS Specimen Anatomical Collection Method Collection Time Receive d Time (Source) Location / / Volume Laterality 01/31/2006 5:47 AM 6 6:20 CDT AM CDT [facility] - BLOOD ORDERABLES Performing Organization Address City/State/ZIP Code Phon e Number MISYS documented in this encounter Visit Diagnoses Not on filedocumented in this encounter
--- NOTE | 2022-03-19 10:15 | CRLHL7_ITS ---
For Patients: As a result of the Cures Act, medical imaging exams and procedure reports are released immediately into your electronic medical record. You may view this report before your referring provider. If you have questions, please contact your health care provider. BILATERAL SCREENING MAMMOGRAM WITH COMPUTER-AIDED DETECTION AND TOMOSYNTHESIS TECHNIQUE: CC and MLO views were obtained. These mammographic images have been obtained using full-field digital technique. These mammographic images were interpreted with the benefit of computer-aided detection. Breast Tomosynthesis was used in this interpretation. COMPARISON FILM: 02/25/21, 04/01/20, 03/19/19. FINDINGS: There are scattered areas of fibroglandular density IMPRESSION: There is no radiographic evidence for malignancy. ASSESSMENT: BI-RADS Category 1: Negative RECOMMENDATION: Routine screening mammogram in 1 year. A lay language report of this examination will be provided to the patient. Wai Diaz M.D. Diagnostic Radiologist [email or web address] Transcribed: 3:07 p.lulu henriquez/Dictated by: Wai Diaz MD @ 03/19/2022 11:40:00 AM (Electronically Signed)
== END 2022-03-19 09:57 | disposition home or self-care (01) ==
LOC: MAMMO 09:57
PROVIDERS: PCP Family Medicine; Visit Provider Family Medicine
DX: Z12.31 Encounter for screening mammogram for malignant neoplasm of breast (principal)
CPT/HCPCS: 77063; 77067

== ENCOUNTER 2023-01-12 13:40 | Outpatient (CLI) | payer MEDICARE, SELFPAY ==
--- NOTE | 2023-01-12 14:00 | CRLHL7_ITS ---
For Patients: As a result of the Century Cures Act, medical imaging exams and procedure reports are released immediately into your electronic medical record. You may view this report before your referring provider. If you have questions, please contact your health care provider. DXA BONE MINERAL DENSITY STUDY Current height (in): 64.0. Weight (lb): 138.0. Menopause age: 21. Ethnicity: White. Reason for exam: Osteopenia. 1. Have you had a previous hip or vertebral fracture? Yes. 2. Have you had any fractures during your adult life which did not result from significant trauma (e.g., auto accident)? Yes. 3. Did either of your parents have a hip fracture? No. 4. Do you smoke? No. 5. Have you ever taken Glucocorticoids? No. 6. Do you have rheumatoid arthritis? No. 7. Do you have secondary osteoporosis? No. 8. Do you drink 3 or more alcoholic drinks per day? No. 9. Are you being treated for osteoporosis? Yes. 10. Have you ever taken any of the following medications: Actonel, Evista, Fosamax, Miacalcin, Reclast, Boniva, Forteo, HRT (i.e. estrogen/hormone therapy), Protelos, Prolia, Vitamin D, Calcium, other ??? please specify. ANSWER: Yes, Fosamax, vitamin D, Protelos, calcium. 11. Do you have any of the following medical conditions: Anorexia or bulimia, asthma or emphysema, end stage renal disease, hyperparathyroidism, any seizure disorders, cancer, inflammatory bowel diseases, hysterectomy, other ??? please specify. ANSWER: Yes, hysterectomy. 12. What was your maximum height (inches)? 66. 13. Do you perform weight bearing exercise regularly? Yes. 14. Do you regularly consume dairy products? Yes. 15. Do you drink caffeinated beverages? Yes. 16. At what age did your period start? 11. 17. Are you premenopausal? No. 18. How many full-term pregnancies have you had? 0. 19. Have you ever missed your period for more than 6 months in a row (not including or menopause)? No. TECHNIQUE: Bone mineral density study was performed using the Figgu. FINDINGS: The results of the study expressed as bone mineral density (BMD) are as follows: Lumbar spine L2to L4: BMD: 1.108 g/cm2. T-score: 0.3. Z-score: 2.7. Neck Left: BMD: 0.667 g/cm2. T-score: -1.6. Z-score: 0.4. Right: BMD: 0.600 g/cm2. T-score: -2.2. Z-score: -0.2. Total Left: BMD: 0.851 g/cm2. T-score: -0.7. Z-score: 1.0. Right: BMD: 0.787 g/cm2. T-score: -1.3. Z-score: 0.5. IMPRESSION: Osteopenia. *Comparison exams done prior to 09/2019 were performed on different unit, SNADEC. COMPARISON: Compared with scan of 02/25/21, the bone mineral density has increased by 8.2 percent at the spine and decreased by 2.2 percent at the hip. Wai Diaz M.D. Diagnostic Radiologist [email or web address] Transcribed: 2:26 pm DW/Dictated by: Wai Diaz MD @ 01/13/2023 8:34:00 AM (Electronically Signed)
== END 2023-01-12 13:41 | disposition home or self-care (01) ==
LOC: RAD 13:43
PROVIDERS: PCP Family Medicine; Visit Provider Family Medicine
DX: M85.80 Other specified disorders of bone density and structure, unspecified site (principal); M85.88 Other specified disorders of bone density and structure, other site
CPT/HCPCS: 77080

== ENCOUNTER 2023-02-08 08:11 | Outpatient (CLI) | payer MEDICARE, SELFPAY | END 2023-02-08 08:12 | disposition home or self-care (01) | PROVIDERS: PCP Family Medicine; Visit Provider Family Medicine | DX: I10 Essential (primary) hypertension (principal); E78.5 Hyperlipidemia, unspecified; M85.80 Other specified disorders of bone density and structure, unspecified site; M18.0 Bilateral primary osteoarthritis of first carpometacarpal joints | CPT/HCPCS: 80053; 80061; 82306 ==

== ENCOUNTER 2023-05-11 13:29 | Outpatient (CLI) | payer MEDICARE, SELFPAY ==
--- NOTE | 2023-05-11 14:00 | CRLHL7_ITS ---
For Patients: As a result of the Century Cures Act, medical imaging exams and procedure reports are released immediately into your electronic medical record. You may view this report before your referring provider. If you have questions, please contact your health care provider. BILATERAL DIGITAL SCREENING MAMMOGRAM WITH TOMOSYNTHESIS AND COMPUTER-AIDED DETECTION CLINICAL HISTORY: Routine screening exam. COMPARISON: 03/19/2022, 02/25/2021, 04/01/2020, 03/19/2019. TECHNIQUE: Digital mammogram in CC and MLO projections including computer-aided detection (CAD). Tomosynthesis utilized. BREAST COMPOSITION: There are areas of scattered fibroglandular density. FINDINGS: RIGHT Breast: Focal asymmetric density 12 o`clock 7 cm from the nipple. LEFT Breast: No suspicious findings. IMPRESSION: RIGHT breast asymmetry/mass. RECOMMENDATIONS: Additional mammographic views of the RIGHT breast including 3D spot compression CC/MLO. RIGHT breast ultrasound may also be required. BI-RADS Category 0: Incomplete: Need Additional Imaging Evaluation and/or Prior Mammograms for Comparison [facility] will contact the patient for follow-up. A lay language report of this examination will be provided to the patient. Dictated by Wai Diaz MD @ 05/12/2023 12:09:04 PM jj/Dictated by: Wai Diaz MD @ 05/12/2023 12:09:00 PM (Electronically Signed)
== END 2023-05-11 13:30 | disposition home or self-care (01) ==
LOC: MAMMO 13:30
PROVIDERS: PCP Family Medicine; Visit Provider Family Medicine
DX: Z12.31 Encounter for screening mammogram for malignant neoplasm of breast (principal); N63.10 Unspecified lump in the right breast, unspecified quadrant
CPT/HCPCS: 77063; 77067; 80061

== ENCOUNTER 2023-05-18 09:19 | Outpatient (CLI) | payer MEDICARE, SELFPAY ==
--- OUTSIDE RECORDS SUMMARY | 2023-05-18 09:23 | XMS_ITS | Clinical Summary ---
Author Name Unknown Organization [facility] Address [address] [place] [address]. [place] [address] Care Team Providers Care Vacuum Plastic Forming Machine Operator Name Role Phone Wendy Gonzalez Ann Primary Care Provider Unavailab le Active Problems Problem Noted Date Diagnosed Date Osteoarthritis of both thumbs 03/04/2021 Resolved Problems Problem Noted Date Diagnosed Date Resolved Date Bilateral hand pain 06/15/2018 06/29/19 19 Social History Tobacco Use Types Packs/Day Years Used Date Smoking Tobacco: Never Assessed Adolescent Education Answer Date Record ed Getting School Help Needed Not on file 02/01 Sex and Gender Information Value Date Recorded Sex Assigned at Not on file Gender Identity Not on file Sexual Orientation Not on file Plan of Treatment Health Maintenance Due Date Last Done Comments ADVANCE CARE PLANNING 1950 ANNUAL REVIEW OF HM ORDERS 1948 CT COLONOGRAPHY 1950 DEXA 1950 FIT 1950 FLEX SIG 1950 MAMMO SCREENING 1950 sDNA (Cologuard) 1950 COLONOSCOPY 1958 COLORECTAL CANCER SCREENING 1958 HEPATITIS C SCREENING 1966 LIPID 1993 RSV VACCINE ( & 60+) (1 - 1-dose 60+ series) 2008 FALL RISK ASSESSMENT 2013 MEDICARE ANNUAL WELLNESS VISIT 2013 DTAP/TDAP/TD IMMUNIZATION (3 - Td or Tdap) 11/09/2022 11/09/2012, 06/19/2008, 01/10/1998 COVID-19 Vaccine (4 - 2022- season) 2022 02/25/2021, 07/10/2020, 06/12/2020 INFLUENZA VACCINE (#1) 2022 , 12/17/2019, 01/30/2019, Additional history exists PHQ-2 (once per calendar year) 2023 Pneumococcal Vaccine: 65+ Years Completed 12/09/2014, 12/05/2013 ZOSTER IMMUNIZATION Completed 02/19/2020, 12/20/2019, 11/23/2011 HPV IMMUNIZATION Aged Out No longer e ligible based on patient's age to complete this topic IPV IMMUNIZATION Aged Out No longer e ligible based on patient's age to complete this topic MENINGITIS IMMUNIZATION Aged Out No l onger eligible based on patient's age to complete this topic RSV MONOCLONAL ANTIBODY Aged Out No l onger eligible based on patient's age to complete this topic Care Teams Vacuum Plastic Forming Machine Operator Relationship Specialty Start Date End Date Wendy Gonzalez PCP - General Family Practice 06/08/18
--- OUTSIDE RECORDS SUMMARY | 2023-05-18 09:23 | XMS_ITS | Referral Summary ---
Author Name Unknown Organization [facility] Address [address] [place] [address]. [place] [address] Care Team Providers Care Hha Name Role Phone Wendy Gonzalez Primary Care Provider Unavailab le Active Problems Problem Noted Date Diagnosed Date Osteoarthritis of both thumbs 03/04/2021 Resolved Problems Problem Noted Date Diagnosed Date Resolved Date Bilateral hand pain 06/15/2018 06/29/19 Social History Tobacco Use Types Packs/Day Years Used Date Smoking Tobacco: Never Assessed Adolescent Education Answer Date Record ed Getting School Help Needed Not on file 02/01 Sex and Gender Information Value Date Recorded Sex Assigned at Not on file Gender Identity Not on file Sexual Orientation Not on file Plan of Treatment Not on file Care Teams Hha Relationship Specialty Start Date End Date Wendy Gonzalez PCP - General Family Practice 06/08/18
--- OUTSIDE RECORDS SUMMARY | 2023-05-18 09:24 | XMS_ITS | Clinical Summary ---
Author Name Unknown Organization [facility] Address [place], [place] [address] Care Team Providers Care Ultimate Hoops Trainer Name Role Phone Vikki Crump MD Primary Care Provider + Allergies No known active allergies Medications Medication Sig Dispensed Refills Start Date End Date Status MOXIFLOXACIN 0.1% INTRACAMERAL INJECTION (JYOTI AMB MIX) Use as directed for procedure. 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 White coat syndrome with diagnosis of hypertensi on 05/09/2020 Social History Tobacco Use Types Packs/Day Years Used Date Smoking Tobacco: Never Assessed Social Connections Answer Date Recorded Frequency of Communication with Friends and Fami ly Not on file 04/16/2021 Financial Resource Strain Answer Date R ecorded Difficulty of Paying Living Expenses Not on file 04/16/2021 Difficulty of Paying Living Expenses Not on file 04/16/2021 Sex and Gender Information Value Date Recorded [...] series for age 50+ (1 of 2) 06/22/18 99 DEXA/DXA scan for age 65+ 2013 Medicare Wellness for age 65+ 2013 Pneumococcal series for age 65+ (1 of 1 - PCV) 014 Influenza for age 65+ 12/17/2022 Care Teams Ultimate Hoops Trainer Relationship Specialty Start Date End Date Vikki Crump MD [address] [place] [address] PCP - General Family Practice 04/28/20
--- NOTE | 2023-05-18 09:45 | CRLHL7_ITS ---
For Patients: As a result of the Cures Act, medical imaging exams and procedure reports are released immediately into your electronic medical record. You may view this report before your referring provider. If you have questions, please contact your health care provider. RIGHT BREAST DIGITAL DIAGNOSTIC MAMMOGRAM WITH COMPUTER-AIDED DETECTION AND TOMOSYNTHESIS CLINICAL HISTORY: RIGHT breast mass/asymmetry. COMPARISON: 05/11/2023, 03/19/2022, 02/25/2021, 04/01/2020. TECHNIQUE: Digital RIGHT mammogram in 2 projections. Real-time ultrasound imaging of RIGHT breast with imaging documentation. Scanning was performed by both the technologist and the radiologist. BREAST COMPOSITION: There are scattered areas of fibroglandular density. FINDINGS: 3D spot-compression CC/MLO RIGHT breast mammogram images submitted. Persistent nodular density upper RIGHT breast. No architectural distortion. No adenopathy. Benign calcifications. Targeted RIGHT breast ultrasound performed at 1 o`clock 7 cm from the nipple. Solid hypoechoic nodule is present at anterior depth measuring 4 x 4 x 6 millimeters. IMPRESSION: Indeterminate solid nodule RIGHT breast 1 o`clock 7 cm from the nipple measuring 4 x 4 x 6 millimeters. RECOMMENDATIONS: Ultrasound-guided core needle biopsy. BI-RADS: 4. Suspicious Results and recommendations discussed with the patient. Dictated by: Wai Diaz MD @ 05/18/2023 12:42:00 PM/doe be/Dictated by: Wai Diaz MD @ 05/18/2023 12:42:00 PM (Electronically Signed)
--- NOTE | 2023-05-18 10:15 | CRLHL7_ITS ---
For Patients: As a result of the Century Cures Act, medical imaging exams and procedure reports are released immediately into your electronic medical record. You may view this report before your referring provider. If you have questions, please contact your health care provider. PLEASE SEE DIGITAL DIAGNOSTIC RIGHT MAMMOGRAM PERFORMED SAME DAY CRL/bhe be/Dictated by: Wai Diaz MD @ 05/18/2023 12:42:00 PM (Electronically Signed)
== END 2023-05-18 09:20 | disposition home or self-care (01) ==
LOC: MAMMO 09:19
PROVIDERS: PCP Family Medicine; Visit Provider Family Medicine
DX: N63.10 Unspecified lump in the right breast, unspecified quadrant (principal); R92.8 Other abnormal and inconclusive findings on diagnostic imaging of breast
CPT/HCPCS: 76642; 77065; G0279

== ENCOUNTER 2023-05-25 07:54 | Outpatient (CLI) | payer MEDICARE, SELFPAY ==
--- OUTSIDE RECORDS SUMMARY | 2023-05-25 07:56 | XMS_ITS | Clinical Summary ---
Author Name Unknown Organization [facility] Address [place], [place] [address] Care Team Providers Care Hot Top Liner Helper Name Role Phone Vikki Crump MD Primary [...] Influenza for age 65+ 12/17/2022 Care Teams Hot Top Liner Helper Relationship Specialty Start Date End Date Vikki Crump MD [address] [place] [address] PCP - General Family Practice 04/28/20
--- OUTSIDE RECORDS SUMMARY | 2023-05-25 07:56 | XMS_ITS | Clinical Summary ---
Author Name Unknown Organization [facility] Address [address] [place] [address]. [place] [address] Care Team Providers Care Learning Program Manager Name Role Phone Wendy Gonzalez Ann Primary [...] SCREENING 1958 HEPATITIS C SCREENING 1966 LIPID 1988 RSV VACCINE ( & 60+) (1 - 1-dose 60+ series) 2008 GLUCOSE 01/31/2009 01/31/2006 FALL RISK ASSESSMENT 2013 MEDICARE ANNUAL WELLNESS VISIT 2013 DTAP/TDAP/TD IMMUNIZATION (3 - Td or Tdap) 11/09/2022 11/09/2012, 06/19/2008, 01/10/1998 COVID-19 Vaccine (4 - 2022- season) 2022 02/25/2021, 07/10/2020, 06/12/2020 INFLUENZA VACCINE (#1) 2022 1, 12/17/2019, 01/30/2019, Additional history exists PHQ-2 (once [...] age to complete this topic Care Teams Learning Program Manager Relationship Specialty Start Date End Date Wendy Gonzalez PCP - General Family Practice 06/08/18
--- OUTSIDE RECORDS SUMMARY | 2023-05-25 07:56 | XMS_ITS | Referral Summary ---
Author Name Unknown Organization [facility] Address [address] [place] [address]. [place] [address] Care Team Providers Care Lining Baster Name Role Phone Wendy Gonzalez Primary Care [...] of Treatment Not on file Care Teams Lining Baster Relationship Specialty Start Date End Date Wendy Gonzalez PCP - General Family Practice 06/08/18
--- NOTE | 2023-05-25 08:15 | CRLHL7_ITS ---
For Patients: As a result of the Century Cures Act, medical imaging exams and procedure reports are released immediately into your electronic medical record. You may view this report before your referring provider. If you have questions, please contact your health care provider. ULTRASOUND-GUIDED BREAST BIOPSY AND POST-BIOPSY DIGITAL MAMMOGRAM FOR BIOPSY MARKER PLACEMENT CLINICAL HISTORY: Solid mass, indeterminate. COMPARISON STUDIES: 05/18/2023, 05/11/2023. TECHNIQUE: Real-time ultrasound with image documentation was used for targeting the breast lesion. Core biopsy specimens were obtained using an automated gun with an 18-gauge biopsy needle. Post-biopsy CC and ML digital mammograms were obtained to document position of the biopsy marker. CONSENT and TIME OUT: The procedure, risks, and alternatives were explained to the patient and a consent was signed. [facility] Protocol was followed including pre-procedure verification that relevant information/documentation was available, reviewed and properly matched to the patient; consent accurate and complete; and equipment and supplies available. Time Out was conducted just prior to starting procedure to verify the four required elements: patient identity, correct side/site marked (if applicable), procedure, relevant images/results properly labeled and displayed (if applicable). PROCEDURE: The patient was positioned supine on the ultrasound table. The breast was prepped with ChloraPrep. 8 cc of 1 percent lidocaine used for local anesthesia. Core samples were obtained. A sterile metal biopsy clip was placed percutaneously to karina the lesion position within the breast. The specimens were placed in 10% formalin and sent to the pathology department. Pressure was held on the biopsy site until all bleeding subsided. The skin incision was closed with Steri-Strips. An ice pack was positioned over the biopsy site. Post-biopsy instructions were reviewed with the patient, and a written copy was given to her. LATERALITY: RIGHT breast. LESION: Solid hypoechoic nodule measuring 4 x 4 x 6 millimeters at 1 o`clock 7 cm from the nipple. SUSPICION FOR MALIGNANCY: High. NUMBER OF SAMPLES: 5. BIOPSY CLIP SHAPE: Oval. PROXIMITY OF CLIP TO TARGET: Within the lesion. IMPRESSION: Ultrasound-guided breast biopsy. When the pathology report is available, an addendum to this report will be made. ACR not applicable Dictated by Wai Diaz MD @ 05/25/2023 10:22:37 AM jj/Dictated by: Wai Diaz MD @ 05/25/2023 10:22:00 AM (Electronically Signed)
--- NOTE | 2023-05-25 08:45 | CRLHL7_ITS ---
For Patients: As a result of the Century Cures Act, medical imaging exams and procedure reports are released immediately into your electronic medical record. You may view this report before your referring provider. If you have questions, please contact your health care provider. PLEASE SEE ULTRASOUND-GUIDED RIGHT BREAST BIOPSY PERFORMED SAME DAY CRL:[email or web address] [email or web address]/Dictated by: Wai Diaz MD @ 05/25/2023 10:22:00 AM (Electronically Signed)
== END 2023-05-25 07:55 | disposition home or self-care (01) ==
LOC: US 07:54
PROVIDERS: PCP Family Medicine; Visit Provider Family Medicine
DX: N63.10 Unspecified lump in the right breast, unspecified quadrant (principal); C50.911 Malignant neoplasm of unspecified site of right female breast; R92.8 Other abnormal and inconclusive findings on diagnostic imaging of breast
CPT/HCPCS: 19083; 77065; 88305; 88341; 88342; 88360; 88361; A4648; A4649

== ENCOUNTER 2023-06-28 07:29 | Day surgery (SDC) | payer MEDICARE, SELFPAY ==
[2023-06-28] MEDS: SODIUM CHLORIDE 0.9 % (FLUSH) 10 ML SYRINGE IVF (07:45)
[2023-06-28] MEDS: LACTATED RINGERS 1000 ML 1,000 ML 100 ML IV ×2 (07:45→11:02)
[2023-06-28 07:53] VITALS: BP 174/68; PULSE 74; RESP 18; TEMP 36.6; O2SAT 97; BMI 24.1
--- NOTE | 2023-06-28 09:00 | NM_ITS ---
Patient: ALENA CAMILO Facility:?[facility] Patient ID:?[id number] Site Patient ID:?[id number] Site :?1950 Study:?NM-Breast Procedure Lymphangioscintigraphy-06/28/2023 9:00:40 AM Ordering Physician:?SILVERIO BRAR Final Report: SENTINEL LYMPH NODE LOCALIZATION INJECTION CLINICAL HISTORY: Right breast cancer LATERALITY: Right breast TECHNIQUE: With the patient supine, the periareolar right breast was cleansed with alcohol. 0.57 millicuries of 30v-Cm-Owvjzhes Sulfur Colloid in a volume of 1 cc was injected intradermal in the upper outer periareolar breast with a 25-gauge needle. The patient tolerated the procedure well and there were no immediate complications. IMPRESSION: Injection for sentinel lymph node of the right breast. Dictated by Wai Diaz MD @ 06/28/2023 9:08:33 AM Signed by:?Wai Diaz MD @06/28/2023 9:08:33 AM (Electronic Signature)
--- NOTE | 2023-06-28 09:15 | US_ITS ---
Patient: ALENA CAMILO Facility:?[facility] Patient ID:?[id number] Site Patient ID:?[id number]. Site :?1950 Study:?US-Breast Right DR ARGUETA TO READ-06/28/2023 9:52:11 AM Ordering Physician:?SILVERIO BRAR Final Report: RIGHT BREAST WIRE LOCALIZATION USING ULTRASOUND GUIDANCE CLINICAL HISTORY: Breast cancer. LATERALITY: RIGHT breast. LESION: 6 mm biopsy-proven malignancy RIGHT breast. LOCALIZATION WIRE: Kopans hookwire. TECHNIQUE: The localization wire was placed using real-time ultrasound guidance with image documentation. Cranial-caudal and medial-lateral digital mammograms were obtained after localization wire placement. CONSENT and TIME OUT: The procedure, risks, and alternatives were explained to the patient and a consent was signed. Stanley Protocol was followed including pre-procedure verification that relevant information/documentation was available, reviewed and properly matched to the patient; consent accurate and complete; and equipment and supplies available. Time Out was conducted just prior to starting procedure to verify the four required elements: patient identity, correct side/site marked (if applicable), procedure, relevant images/results properly labeled and displayed (if applicable). PROCEDURE: The skin was prepped with ChloraPrep and 5 cc of 1 percent lidocaine was used for local anesthesia. The localization wire was placed within or near the targeted breast lesion using ultrasound guidance. The patient tolerated the procedure well. PROXIMITY OF WIRE TO LESION: Wire is present within the lesion adjacent to the clip. IMPRESSION: Successful breast wire localization. ACR not applicable Dictated by Wai Argueta MD @ 06/28/2023 9:57:06 AM/CRL:kizzy PT/Dictated by: Wai Argueta MD @ 06/28/2023 9:57:00 AM Signed by:?Wai Argueta MD @06/28/2023 10:26:00 AM (Electronic Signature)
--- NOTE | 2023-06-28 10:00 | MM_ITS ---
Facility:?[facility] Patient ID:?[id number] Site Patient ID:?[id number]. Site :?1950 Study:?US-Breast Right DR ARGUETA TO READ-06/28/2023 9:52:11 AM Ordering Physician:?SILVERIO BRAR Final Report: RIGHT BREAST WIRE LOCALIZATION USING ULTRASOUND GUIDANCE CLINICAL HISTORY: Breast cancer. LATERALITY: RIGHT breast. LESION: 6 mm biopsy-proven malignancy RIGHT breast. LOCALIZATION WIRE: Kopans hookwire. TECHNIQUE: The localization wire was placed using real-time ultrasound guidance with image documentation. Cranial-caudal and medial-lateral digital mammograms were obtained after localization wire placement. CONSENT and TIME OUT: The procedure, risks, and alternatives were explained to the patient and a consent was signed. Be[place] Protocol was followed including pre-procedure verification that relevant information/documentation was available, reviewed and properly matched to the patient; consent accurate and complete; and equipment and supplies available. Time Out was conducted just prior to starting procedure to verify the four required elements: patient identity, correct side/site marked (if applicable), procedure, relevant images/results properly labeled and displayed (if applicable). PROCEDURE: The skin was prepped with ChloraPrep and 5 cc of 1 percent lidocaine was used for local anesthesia. The localization wire was placed within or near the targeted breast lesion using ultrasound guidance. The patient tolerated the procedure well. PROXIMITY OF WIRE TO LESION: Wire is present within the lesion adjacent to the clip. IMPRESSION: Successful breast wire localization. ACR not applicable Dictated by Wai Argueta MD @ 06/28/2023 9:57:06 AM/CRL:kizzy PT/Dictated by: Wai Argueta MD @ 06/28/2023 9:57:00 AM Signed by:?Wai Argueta MD @06/28/2023 10:26:00 AM (Electronic Signature)
--- NOTE | 2023-06-28 10:00 | MM_ITS ---
Patient: ALENA CAMILO Facility:?[facility] Patient ID:?[id number] Site Patient ID:?[id number] Site :?1950 Study:?XRay-Breast Right SPECIMEN-06/28/2023 10:59:33 AM Ordering Physician:Avila Final Report: RIGHT BREAST SPECIMEN RADIOGRAPH CLINICAL HISTORY: RIGHT breast cancer. COMPARISON: 05/18/2023 FINDINGS: Two views RIGHT specimen submitted. Specimen contains the biopsied mass, the biopsy clip and the localization wire. IMPRESSION: Specimen contains the wire, clip and mass. ACR not applicable. Dictated by Wai Diaz MD @ 06/28/2023 11:28:41 AM/CRL:kizzy PT/Dictated by: Wai Diaz MD @ 06/28/2023 11:28:00 AM Signed by:?Wai Diaz MD @06/28/2023 12:13:55 PM (Electronic Signature)
--- NOTE | 2023-06-28 10:11 | W.PM.H&PU ---
History & Physical Update History & Physical Update H&P Reviewed and patient assessed: No changes noted
[2023-06-28] MEDS: CEFAZOLIN 2 GM INJ IVP (10:15)
[2023-06-28] MEDS: ISOSULFAN BLUE 5 ML VIAL INJECTION (10:17)
[2023-06-28] MEDS: BUPIVACAINE 0.25% 30 ML INJECTION (11:33)
[2023-06-28 11:50] VITALS: BP 135/60; PULSE 70; RESP 18; TEMP 36.2; O2SAT 97
--- NOTE | 2023-06-28 11:56 | W.ANESCHARGE ---
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
--- NOTE | 2023-06-28 11:59 | PM.GSPRC ---
Operative Note Date of procedure: 06/28/23 Pre-op diagnosis: 1. Right breast invasive ductal carcinoma. Post-op diagnosis: Same Type of Procedure: 1. Wire localized right breast lumpectomy. 2. Right sentinel lymph node biopsy. Procedure Description: After discussing the risks and benefits of the procedure, the patient signed informed consent.? The operative site was marked and the patient was brought to the operating room and placed on the operating table in supine position.? Care was taken to pad the patient's pressure points.?? The patient was then sedated by anesthesia.?? The operative site was then prepped and draped in the usual sterile fashion.? A time-out was then performed. Pre-operative mammographic films taken after wire localization were reviewed. The mixture of Lidocaine and Marcaine was used as local anesthetic and was injected at the site of the incision. The lumpectomy was performed by making a?curvilinear skin incision in the right breast spanning from?12 to 3 o'clock.? Subcutaneous skin flaps were developed until the wire was encountered.? The wire was pulled into the surgical field. The breast tissue around the wire was then excised in a cylinder like fashion following the course of the wire using cautery.? This was done with frequent palpation of the wire.? The specimen was then excised making sure that the wire was still in the specimen. Margins of the specimen were inked and the specimen was then sent to mammography first to confirm presence of the wire and the clip and to pathology afterwards for gross margins. Pathologist reviewed the specimen and the tumor and the biopsy clip was identified in the surgical specimen.? All margins were grossly negative. I then proceeded with a right sentinel lymph node biopsy. In same-day surgery 1 hour prior to bringing the patient to the operating room, radioactive tracer was personally injected by me near the right nipple. Three ml (milliliters) of Lymphazurin blue was personally injected by me near the right nipple for sentinel lymph node identification at the start of the case. A [employer] counter was brought onto the field in the right axilla to identify the best area for the sentinel node biopsy. An oblique skin incision was then made over that area. Subcutaneous tissues were dissected with electrocautery. A green lymph node was identified and appeared to have radioactive signal. This node count was 581. This was excised with cautery. This was sent to pathology as the sentinel node #1. Axillary radha tissue was examined again in 2 additional lymph nodes were removed with a count of 448 and 159. Those was sent to pathology as sentinel lymph node #2 And 33. The right axilla was examined again with the Benito counter and and no additional significant signal was identified. Hemostasis was achieved with cautery. This incision was then closed in layers with 3-0 Vicryl interrupted stitches to re-approximate subcutaneous layer and 4-0 Monocryl subcuticular stitch to close skin. Steri-Strips and sterile pressure dressing were applied over the incision. I then proceeded with closure of the lumpectomy cavity. Vascular clips were placed in the lumpectomy cavity for future radiation treatment. Surgical field was examined for bleeding and any bleeding was controlled with electrocautery. Breast tissue was mobilized with cautery to minimize the superior breast defect in the lumpectomy cavity. The breast tissue was then re-approximated with interrupted 2-0 Vicryl stitches. Interrupted subdermal stitches were placed with 3-0 Vicryl as well and skin was closed with 4-0 Monocryl subcuticular stitch. Steristrips and sterile dressings were applied. At the end of the operation, all sponge, instrument, and needle counts were correct. Patient tolerated the procedure well and was transferred to same-day surgery in stable condition. Findings: Right breast tumor was identified in the lumpectomy specimen, the clip was also identified, all margins were grossly negative. Three sentinel lymph nodes were removed from the right axilla. Anesthesia: MAC and local Surgeon: Lupe Arias MD Estimated blood loss (mL): 5 Additional Specimen Information: 1. Right lumpectomy. 2. Right sentinel lymph node #1. 3. Right sentinel lymph node #2. 4. Right sentinel lymph node #3. Condition: stable Disposition: same day
[2023-06-28 12:00] VITALS: BP 143/91; PULSE 68; RESP 18; O2SAT 97
--- NOTE | 2023-06-28 12:00 | W.ANESCHARGE ---
Anesthesia Charges Start Date/Time Anesthesia Start Date: 06/28/23 Anesthesia Start Time: 10:06 Stop Date/Time Anesthesia Stop Date: 06/28/23 Anesthesia Stop Time: 11:53 Summary Extremes of Age - Over 70 or under 1: MDA
[2023-06-28 12:15] VITALS: BP 153/71; PULSE 63; RESP 18; O2SAT 97
== END 2023-06-28 12:55 | disposition home or self-care (01) ==
PROVIDERS: PCP Family Medicine; Visit Provider Surgery
PROC: (CPT 19301; principal; 2023-06-28 10:00)
PROC: (CPT 19301; 2023-06-28 10:00)
DX: C50.211 Malignant neoplasm of upper-inner quadrant of right female breast (principal)
CPT/HCPCS: 19301; 38525; 00400; 01610; 19285; 38792; 77065; 88307; 88361; 88377; 99100; A9541; C1769; J0665; J0690; J1100; J2250; J2405; J2704; J3010; J3490; J7120

== ENCOUNTER 2023-07-14 07:07 | Day surgery (SDC) | payer MEDICARE, SELFPAY ==
[2023-07-14 07:54] VITALS: BP 169/81; PULSE 60; RESP 16; TEMP 37.1; O2SAT 99
[2023-07-14] MEDS: SODIUM CHLORIDE 0.9 % (FLUSH) 10 ML SYRINGE IVF (07:57)
[2023-07-14] MEDS: LACTATED RINGERS 1000 ML 1,000 ML 100 ML IV (07:57)
--- NOTE | 2023-07-14 08:01 | W.PM.H&PU ---
History & Physical Update History & Physical Update H&P Reviewed and patient assessed: No changes noted
--- NOTE | 2023-07-14 08:30 | XR_ITS ---
Patient: ALENA CAMILO Facility:?[facility] Patient ID:?[id number] Site Patient ID:?[id number]. Site :?[id number] Study:?XRay-Chest 1V-07/14/2023 9:20:06 AM Ordering Physician:?DR. OLIVAS Final Report: INDICATION: Port-A-Cath insertion. TECHNIQUE: Single fluoroscopic spot film. FINDINGS: 74.4 seconds of fluoroscopy time was used. Port-A-Cath in the superior vena cava. Dictated by Norberto Murcia MD @ 07/14/2023 2:54:54 PM Signed by:?Norberto Murcia MD @07/14/2023 2:54:54 PM (Electronic Signature)
[2023-07-14] MEDS: CEFAZOLIN 1 GM inj IVP (08:32)
[2023-07-14] MEDS: BUPIVACAINE 0.5% 30 ML 5 ML INJECTION (08:42)
[2023-07-14] MEDS: LIDOCAINE 1 % PF 30 ML 5 ML INJECTION (08:42)
--- NOTE | 2023-07-14 08:46 | SUR.OPER ---
PATIENT QUESTIONS ANSWERED SATISFACTORILY PREOPERATIVELY. PATIENT BROUGHT TO OR #1 PER CART. Patient positioned supine on OR #1 bed. The perioperative team supported arms bilaterally on arm boards FOR INDUCTION, THEN BILATERAL ARMS TUCKED AT PT. SIDES IN A NEUTRAL, PADDED POSITION. Final approval of positioning by surgeon.
[2023-07-14] MEDS: 0.9 % SODIUM CHLORIDE 50 ml 15 ML INJECTION (09:00)
[2023-07-14] MEDS: HEPARIN 500 UNIT/5 ML SYRINGE IVF (09:03)
--- NOTE | 2023-07-14 09:15 | PM.GSPRC ---
Operative Note Date of procedure: 07/14/23 Pre-op diagnosis: Invasive ductal carcinoma of breast Post-op diagnosis: Same Type of Procedure: Right internal jugular port a catheter placement Indications: Patient is a 73-year-old female with recent diagnosis invasive ductal carcinoma of the breast. She was seen by Oncology, who recommended placement of a port a catheter. Risks and benefits of procedure were discussed at length with the patient. Risks included, but were not limited to: Bleeding, infection, risk of damage to surrounding structures and possible need for additional procedures. All questions and concerns were addressed with patient agreeing to proceed. Procedure Description: After discussing the risks and benefits of the procedure, the patient signed informed consent.? The operative site was marked and the patient was brought to the operating room and placed on the operating table in supine position.? Care was taken to pad the patient's pressure points.?? The patient was then given sedation by anesthesia.?? The operative site was then prepped and draped in the usual sterile fashion.? A time-out was then performed. The patient's right internal jugular vein was visualized using ultrasound. Local anesthetic was injected into the neck skin above the vein. This was accessed percutaneously via Seldinger technique using ultrasound guidance. A skin libertad was made around the wire. Next local anesthetic was injected into the skin below the clavicle and along the proposed tract to the neck incision. A skin incision was then made with a 15 blade and a pocket created in the chest wall with cautery. A tunneler was then used to thread the catheter from the chest wall pocket to the neck incision. Once this was done fluoroscopy was brought into the field. Over the wire the tract was dilated using fluoroscopy. The wire and the dilator were then removed leaving the sheath intact in the vein. Through this the catheter was threaded. Using fluoroscopy the catheter was positioned into the distal SVC. The catheter was noted to flush and aspirate easily. The catheter was then connected to the port. The port was placed in the pocket and secured in place with a single 2 0 Prolene stay suture on the medial aspect of the port. It was noted to flush and aspirate easily. This was then locked with heparinized saline. The skin was closed with absorbable suture. Sterile dressings were applied. Instrument sponge and needle counts were correct at the end of the case. The patient was woken and taken to the PACU in stable condition. Findings: Compressible right internal jugular vein, placement of port a catheter Anesthesia: MAC and local Surgeon: Juana Chowdhury MD Estimated blood loss (mL): 5 Condition: stable Disposition: same day
[2023-07-14 09:20] VITALS: BP 134/60; PULSE 47; RESP 16; TEMP 36.2; O2SAT 99
--- NOTE | 2023-07-14 09:23 | W.ANESCHARGE ---
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
[2023-07-14 09:30] VITALS: BP 153/71; PULSE 45; RESP 16; O2SAT 98
--- NOTE | 2023-07-14 09:38 | W.ANESCHARGE ---
Anesthesia Charges Start Date/Time Anesthesia Start Date: 07/14/23 Anesthesia Start Time: 08:20 Stop Date/Time Anesthesia Stop Date: 07/14/23 Anesthesia Stop Time: 09:23
[2023-07-14 09:45] VITALS: BP 160/70; PULSE 46; RESP 16; O2SAT 98
[2023-07-14 10:00] VITALS: BP 169/66; PULSE 47; RESP 16; O2SAT 98
== END 2023-07-14 10:23 | disposition home or self-care (01) ==
PROVIDERS: PCP Family Medicine; Visit Provider Surgery
PROC: (CPT 36561; principal; 2023-07-14 08:30)
DX: Z45.2 Encounter for adjustment and management of vascular access device (principal); C50.211 Malignant neoplasm of upper-inner quadrant of right female breast
CPT/HCPCS: 36561; 00532; 71045; 76000; 76998; 99100; C1788; J0665; J0690; J1100; J1642; J2001; J2250; J2405; J2704; J3010; J3490; J7120

== ENCOUNTER 2023-12-26 13:30 | Outpatient (RCR) | payer MEDICARE, SELFPAY ==
--- NOTE | 2023-07-06 13:25 | ONC.NURNOTE ---
I met with patient and her spouse after her consult with Dr. Valle. We discussed plan of care. 1. Referral for genetic counseling/testing faxed to [facility], . They will call patient to schedule consultation. 2. I will reach out to Dr. Arias to arrange port placement. 3. Once we know a port placement date, we will schedule chemotherapy teach and new start date. [facility] will coordinate with patient. 4. Printed information was provided to patient re: Docetaxel and Cyclophosphamide. Patient verbalizes understanding.
--- NOTE | 2023-07-07 12:11 | URNOTE ---
Request received for authorization for Docetaxel (J9171), Cyclophosphamide (J9070), Palonosetron (J2469), Pegfilgrastim-jmdb ([id number]). Prior authorization is not needed for Docetaxel/Cyclophosphamide and Palonosetron per [employer] Ref#[id number], Rep. Cathie. Called Rep. Jennifer Das at [facility] Drug authorization Ref#[id number] re: Pegfilgrastim-jmdb is preferred and approved, date range: 07/07/2023 to 01/07/24.
[2023-07-21 14:43] LABS: Basophils Absolute Auto 0.02 K/uL (0.00-0.30); Basophils Percent Auto 0.3 % (0.0-3.0); Eosinophils Absolute Auto 0.07 K/uL (0.00-0.50); Eosinophils Percent Auto 1.1 % (0.0-7.0); Hematocrit 47.9 % (33.0-51.0); Hemoglobin* 15.8 gm/dL (12.0-16.0); Immature Granulocytes Abs Auto 0.01 K/uL (0.00-0.30); Immature Granulocytes Pct Auto 0.2 %; Lymphocytes Absolute Auto 1.44 K/uL (0.90-2.90); Lymphocytes Percent Auto 22.2 % (20-44); Mean Corpuscular HGB Conc 33 gm/dL (32-36); Mean Corpuscular Hemoglobin 32 pg (26-34); Mean Corpuscular Volume 96 fL (80-100); Monocytes Percent Auto 8.6 % (0.0-11.0); Neutrophils Absolute Auto 4.39 K/uL (1.7-7.0); Neutrophils Percent Auto 67.6 % (42.0-72.0); Platelet Count* 259 K/uL (140-440); RDW Coefficient of Variation % 12.2 % (11.5-15.5); White Blood Count* 6.49 K/uL (4.50-11.00)
[2023-07-21 14:45] LABS: Slide Review Reflex No
[2023-07-21 14:55] LABS: Albumin* 4.6 g/dL (3.3-5.0)
[2023-07-21 14:58] LABS: Bilirubin Total* 0.5 mg/dL (0.1-1.5); Carbon Dioxide* 29 mmol/L (20-32); Creatinine* 0.6 mg/dL (0.5-1.5); Est. Creatinine Clearance* 40.21; Estimated Glomerular Filt Rate 94 ml/min
[2023-07-21 14:59] LABS: Alanine Aminotransferase* 24 U/L (4-35); Alkaline Phosphatase* 62 U/L (40-150); Aspartate Amino Transferase* 35 U/L (12-35); Blood Urea Nitrogen* 19 mg/dL (7-30); Calcium* 10.1 mg/dL (8.4-10.6); Glucose* 105 mg/dL (60-115); Total Protein* 7.6 g/dL (6.0-8.3)
[2023-07-21 15:13] LABS: Anion Gap 7 mEq/L (7-15); Chloride* 100 mmol/L (96-114); Potassium* 3.7 mmol/L (3.6-5.1); Sodium* 136 mmol/L (135-149)
--- NOTE | 2023-07-21 16:22 | ONC.NURNOTE ---
I met with patient and her Rhett today for chemotherapy teaching. Contents of the chemotherapy binder were reviewed. We discussed side effects of her chemotherapy and what to report to her provider. We reviewed how to contact the provider during office hours and after. I oriented patient to the infusion center and what to expect on the day of her infusion. Patient verbalizes understanding of plan.
[2023-07-26 08:40] VITALS: BP 174/72; PULSE 57; RESP 16; TEMP 36.6; O2SAT 100
[2023-07-26] MEDS: PALONOSETRON 0.25 MG/5 ML inj IV (09:12)
[2023-07-26] MEDS: dexAMETHasone 20 MG in 0.9 % SODIUM CHLORIDE 100 ml 100 ML 408 MG IVPB (09:13)
[2023-07-26 10:00] VITALS: BP 163/61
[2023-07-26] MEDS: HEPARIN 500 UNIT/5 ML SYRINGE IVF (12:20)
[2023-07-26] MEDS: SODIUM CHLORIDE 0.9 % (FLUSH) 10 ML SYRINGE IVF (12:20)
--- NOTE | 2023-07-26 14:31 | ONC.NURNOTE ---
Pt here for 1st Taxotere/Cytoxan. Pt tolerating infusion well without difficulty. Pt given calendar on when to take antiemetics. Pt to return on 07/27/23 for fulphilia injection.
[2023-07-27 14:01] VITALS: BP 139/67; PULSE 61; RESP 16; TEMP 35.8; O2SAT 97
[2023-07-27] MEDS: PEGFILGRASTIM-JMDB (Fulphila) 6 MG/0.6 ML SUBCUT (14:03)
[2023-08-15 08:33] LABS: Basophils Absolute Auto 0.05 K/uL (0.00-0.30); Basophils Percent Auto 0.6 % (0.0-3.0); Hematocrit 42.7 % (33.0-51.0); Hemoglobin* 14.2 gm/dL (12.0-16.0); Immature Granulocytes Abs Auto 0.01 K/uL (0.00-0.30); Immature Granulocytes Pct Auto 0.1 %; Lymphocytes Percent Auto 14.1 % (20-44); Mean Corpuscular HGB Conc 33 gm/dL (32-36); Mean Corpuscular Hemoglobin 32 pg (26-34); Mean Corpuscular Volume 96 fL (80-100); Monocytes Percent Auto 9.7 % (0.0-11.0); Neutrophils Percent Auto 75.5 % (42.0-72.0); Platelet Count* 354 K/uL (140-440); RDW Coefficient of Variation % 13.2 % (11.5-15.5); Red Blood Count 4.45 m/uL (4.00-5.20)
[2023-08-15 08:35] LABS: Slide Review Reflex No
[2023-08-15 08:47] LABS: Albumin* 4.1 g/dL (3.3-5.0); Chloride* 102 mmol/L (96-114); Sodium* 137 mmol/L (135-149)
[2023-08-15 08:50] LABS: Alanine Aminotransferase* 26 U/L (4-35); Alkaline Phosphatase* 77 U/L (40-150); Anion Gap 5 mEq/L (7-15); Aspartate Amino Transferase* 34 U/L (12-35); Bilirubin Total* 0.4 mg/dL (0.1-1.5); Blood Urea Nitrogen* 20 mg/dL (7-30); Carbon Dioxide* 30 mmol/L (20-32); Creatinine* 0.5 mg/dL (0.5-1.5); Est. Creatinine Clearance* 40.21; Estimated Glomerular Filt Rate 98 ml/min; Glucose* 116 mg/dL (60-115); Total Protein* 6.7 g/dL (6.0-8.3)
[2023-08-15 08:51] LABS: Calcium* 9.5 mg/dL (8.4-10.6)
[2023-08-15] MEDS: 0.9 % SODIUM CHLORIDE 250 ml IV (10:22)
[2023-08-15] MEDS: PALONOSETRON 0.25 MG/5 ML inj IV (10:22)
[2023-08-15] MEDS: dexAMETHasone 20 MG in 0.9 % SODIUM CHLORIDE 100 ml 100 ML 408 MG IVPB (10:37)
[2023-08-15] MEDS: SODIUM CHLORIDE 0.9 % (FLUSH) 10 ML SYRINGE IVF ×2 (11:01→12:45)
[2023-08-15] MEDS: cycloPHOSphamide 1,000 MG, TUBING SECONDARY 1 EACH in 0.9 % SODIUM CHLORIDE 250 ml 250 ML 510 MG IV (12:07)
[2023-08-15] MEDS: HEPARIN 500 UNIT/5 ML SYRINGE IVF (12:45)
[2023-08-16 13:58] VITALS: BP 131/64; PULSE 62; RESP 16; TEMP 36.8; O2SAT 98
[2023-08-16] MEDS: PEGFILGRASTIM-JMDB (Fulphila) 6 MG/0.6 ML SUBCUT (14:06)
--- NOTE | 2023-08-16 14:43 | ONC.NURNOTE ---
Patient here for EDGARDO Birch. Mentioned she has a sore on bottom inner lip. Avionics Systems Integration Specialist observed. No bleeding noted. patient stated she had multiple sores after last treatment and used peroxyl and ACT dry mouth wash QID after meals and it cleared it up within a few days. She was given this recommendation from her dental hygienist. Avionics Systems Integration Specialist ran this past our Advance Practice Nurse and she stated to let patient continue what she is doing and to call back if things get worse so we could potentially prescribe viscous lidocaine and acyclovir. Patient verbalized understanding.
--- NOTE | 2023-08-24 15:00 | ONC.NURNOTE ---
Call from patient to discuss a possible side effect from her chemotherapy. Patient states that for the last week, she has had a red line across all of her knuckles bilaterally. It is sore and mildly itchy. She has tried multiple lotions and nothing seems to help. She denies fever but states they are warm to touch. Not getting worse with time but also not getting better. Otherwise, patient has been feeling very well. Patient emailed pictures of her hands and these were reviewed with Dr. Valle. Patient informed this is likely a side effect of her Taxotere. Our recommendation would be topical OTC hydrocortisone cream twice daily. If this does not help after a few days, patient should take a Medrol Dose Todd as prescribed by Dr. Valle. Patient verbalizes understanding.
[2023-09-05 07:56] VITALS: BP 149/69; PULSE 58; RESP 16; TEMP 36.6; O2SAT 98
[2023-09-05 08:17] LABS: Basophils Absolute Auto 0.05 K/uL (0.00-0.30); Basophils Percent Auto 0.8 % (0.0-3.0); Hematocrit 40.2 % (33.0-51.0); Hemoglobin* 13.2 gm/dL (12.0-16.0); Immature Granulocytes Abs Auto 0.01 K/uL (0.00-0.30); Immature Granulocytes Pct Auto 0.2 %; Lymphocytes Percent Auto 14.8 % (20-44); Mean Corpuscular HGB Conc 33 gm/dL (32-36); Mean Corpuscular Hemoglobin 32 pg (26-34); Mean Corpuscular Volume 97 fL (80-100); Monocytes Percent Auto 13.2 % (0.0-11.0); Neutrophils Absolute Auto 4.45 K/uL (1.7-7.0); Platelet Count* 275 K/uL (140-440); RDW Coefficient of Variation % 14.2 % (11.5-15.5); Red Blood Count 4.14 m/uL (4.00-5.20); White Blood Count* 6.27 K/uL (4.50-11.00)
[2023-09-05 08:24] LABS: Slide Review Reflex No
[2023-09-05 08:31] LABS: Albumin* 4.2 g/dL (3.3-5.0); Chloride* 104 mmol/L (96-114); Potassium* 3.9 mmol/L (3.6-5.1); Sodium* 137 mmol/L (135-149)
[2023-09-05 08:33] LABS: Anion Gap 3 mEq/L (7-15); Bilirubin Total* 0.5 mg/dL (0.1-1.5); Carbon Dioxide* 30 mmol/L (20-32); Creatinine* 0.5 mg/dL (0.5-1.5); Est. Creatinine Clearance* 36.68; Estimated Glomerular Filt Rate 98 ml/min
[2023-09-05 08:34] LABS: Alanine Aminotransferase* 25 U/L (4-35); Alkaline Phosphatase* 62 U/L (40-150); Aspartate Amino Transferase* 30 U/L (12-35); Blood Urea Nitrogen* 21 mg/dL (7-30); Calcium* 9.4 mg/dL (8.4-10.6); Glucose* 101 mg/dL (60-115); Total Protein* 6.7 g/dL (6.0-8.3)
[2023-09-05] MEDS: dexAMETHasone 20 MG in 0.9 % SODIUM CHLORIDE 100 ml 100 ML 408 MG IVPB (09:54)
[2023-09-05] MEDS: PALONOSETRON 0.25 MG/5 ML inj IV (09:55)
[2023-09-05] MEDS: SODIUM CHLORIDE 0.9 % (FLUSH) 10 ML SYRINGE IVF ×2 (09:55→12:10)
[2023-09-05] MEDS: 0.9 % SODIUM CHLORIDE 250 ml IV (09:55)
--- NOTE | 2023-09-05 11:11 | ONC.NURNOTE ---
finished medrol dose pack for rash and itching of both hands. today rash is gone. she denies any pain or itching of both hands. Seen by Olivia Paz APRN today . pt to continue using the lotions she has at home. both hand nuckles sl pink and sl open
[2023-09-05] MEDS: cycloPHOSphamide 1,000 MG, TUBING SECONDARY 1 EACH in 0.9 % SODIUM CHLORIDE 250 ml 250 ML 510 MG IV (11:38)
[2023-09-05] MEDS: HEPARIN 500 UNIT/5 ML SYRINGE IVF (12:10)
[2023-09-06] MEDS: PEGFILGRASTIM-JMDB (Fulphila) 6 MG/0.6 ML SUBCUT (13:51)
[2023-09-06 14:21] VITALS: BP 120/57; PULSE 54; RESP 16; TEMP 37; O2SAT 97
[2023-09-26 08:29] VITALS: BP 133/61; PULSE 52; RESP 16; TEMP 36.6; O2SAT 99
[2023-09-26] MEDS: SODIUM CHLORIDE 0.9 % (FLUSH) 10 ML SYRINGE IVF ×2 (08:45→12:31)
[2023-09-26 08:51] LABS: Basophils Absolute Auto 0.05 K/uL (0.00-0.30); Basophils Percent Auto 0.7 % (0.0-3.0); Hematocrit 39.8 % (33.0-51.0); Hemoglobin* 13.1 gm/dL (12.0-16.0); Immature Granulocytes Abs Auto 0.01 K/uL (0.00-0.30); Immature Granulocytes Pct Auto 0.1 %; Lymphocytes Percent Auto 10.3 % (20-44); Mean Corpuscular HGB Conc 33 gm/dL (32-36); Mean Corpuscular Hemoglobin 33 pg (26-34); Mean Corpuscular Volume 99 fL (80-100); Monocytes Percent Auto 10.7 % (0.0-11.0); Neutrophils Percent Auto 78.2 % (42.0-72.0); Platelet Count* 268 K/uL (140-440); RDW Coefficient of Variation % 15.2 % (11.5-15.5); Red Blood Count 4.01 m/uL (4.00-5.20); Slide Review Reflex No; White Blood Count* 7.28 K/uL (4.50-11.00)
[2023-09-26 09:03] LABS: Albumin* 4.2 g/dL (3.3-5.0); Chloride* 103 mmol/L (96-114); Potassium* 4.2 mmol/L (3.6-5.1); Sodium* 137 mmol/L (135-149)
[2023-09-26 09:05] LABS: Anion Gap 7 mEq/L (7-15); Aspartate Amino Transferase* 33 U/L (12-35); Bilirubin Total* 0.6 mg/dL (0.1-1.5); Carbon Dioxide* 27 mmol/L (20-32); Creatinine* 0.5 mg/dL (0.5-1.5); Est. Creatinine Clearance* 36.68; Estimated Glomerular Filt Rate 98 ml/min; Total Protein* 6.4 g/dL (6.0-8.3)
[2023-09-26 09:06] LABS: Alanine Aminotransferase* 27 U/L (4-35); Alkaline Phosphatase* 58 U/L (40-150); Blood Urea Nitrogen* 24 mg/dL (7-30); Calcium* 9.4 mg/dL (8.4-10.6); Glucose* 101 mg/dL (60-115)
[2023-09-26] MEDS: PALONOSETRON 0.25 MG/5 ML inj IV (10:05)
[2023-09-26] MEDS: dexAMETHasone 20 MG in 0.9 % SODIUM CHLORIDE 100 ml 100 ML 408 MG IVPB (10:08)
[2023-09-26] MEDS: 0.9 % SODIUM CHLORIDE 250 ml IV (10:09)
[2023-09-26] MEDS: cycloPHOSphamide 1,000 MG, TUBING SECONDARY 1 EACH in 0.9 % SODIUM CHLORIDE 250 ml 250 ML 510 MG IV (11:53)
[2023-09-26] MEDS: HEPARIN 500 UNIT/5 ML SYRINGE IVF (12:31)
--- NOTE | 2023-09-26 15:40 | ONC.NURNOTE ---
I met with patient in the infusion center. 1. [facility] is out of network for patient. They are working with [facility] and their insurance to appeal. 2. Patient is scheduled for port removal with Dr. Chowdhury 10/26.
[2023-09-27 14:30] VITALS: BP 130/64; PULSE 58; RESP 16; TEMP 36.9; O2SAT 96
[2023-09-27] MEDS: PEGFILGRASTIM-JMDB (Fulphila) 6 MG/0.6 ML SUBCUT (14:32)
--- NOTE | 2023-12-28 14:49 | ONC.NURNOTE ---
Patient called to clarify when she is due for her mammogram. Her last screening mammogram was 05/11/2023. Radiation completed in October. Discussed with Dr. Valle. Patient instructed to plan for screening mammogram after 05/11/2024. We will still plan to see patient as previously planned in February. Patient verbalizes understanding.
== END 2024-01-02 23:59 | disposition home or self-care (01) ==
LOC: CCIC 13:30
PROVIDERS: Clinical Nurse Specialist; PCP Family Medicine; Referring Provider Family Medicine; Visit Provider Internal Medicine Hematology & Oncology
DX: C50.911 Malignant neoplasm of unspecified site of right female breast (principal); Z17.1 Estrogen receptor negative status [ER-]
CPT/HCPCS: 36415; 36591; 80053; 85025; 96372; 96376; 96413; 96417; 99202; 99205; 99211; 99214; 99215; G0463; J9070; J1100; J1642; J2469; J7050; J9171; Q5108

== ENCOUNTER 2024-02-07 09:06 | Outpatient (CLI) | payer MEDICARE, SELFPAY ==
--- OUTSIDE RECORDS SUMMARY | 2024-02-09 13:09 | XMS_ITS | Encounter Summary ---
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 [address] [place] [address] Phone: tel: fax: [facility] [[email or web address]] Radiation Oncology at [place] [address] [place] [phone] Referral ID Status Reason Start Date Expiration Date V isits Requested Visits Authorized [id number] Authorized 10/24/2023 04/17/2024 19 19 Encounter Details Date Type Department Care Team (Latest Contact Info) Description 11/01/2023 9:31 AM CDT - 11/01/2023 11:59 PM CDT Hospital Encounter Department of Radiation Oncology in [place], [place] [address] [place] [phone] Arabella Smith M.D. [address] [place] [address] Discharge Disposition: Home or Self Care Social History Tobacco Use Types Packs/Day Years Used Date Smoking Tobacco: Never Smokeless Tobacco: Never [facility] Utilities Answer Date Recorded In the past 12 months has th e electric, gas, oil, or water company threatened to shut off services in your home? No 10/20/2023 Exercise Vital Sign Answer Date Recorde d On average, how many days pe r week do you engage in moderate to strenuous exercise (like a brisk walk)? 6 days 10/20/2023 On average, how many minutes do you engage in exercise at this level? 60 min 10/20/2023 Hunger Vital Sign Answer Date Recorded Within the past 12 months, y ou worried that your food would run out before you got the money to buy more. Never true 10/20/19 Within the past 12 months, t he food you bought just didn't last and you didn't have money to get more. Never true 10/20/2023 PRAPARE - Transportation Answer Date Re corded In the past 12 months, has l ack of transportation kept you from medical appointments or from getting medications? No 07/2023 In the past 12 months, has l ack of transportation kept you from meetings, work, or from getting things needed for daily living? No 10/20/2023 Nutrition Answer Date Recorded On average, how many serving s of fruits and vegetables do you eat per day (serving size is equal to 1 cup or approximately the size of a tennis ball)? 5 or more 10/20/2023 Dental Answer Date Recorded Dental: Regular Dentist Yes 10/20/19 Employment Answer Date Recorded Employment status Retired 10/20/2023 Housing Stability Answer Date Recorded What is your living situation today? 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 Apply to the right breast during radiation treatments and for 1 week after treatments are complete. 45 g 10/13/2023 rosuvastatin (Crestor) 5 mg tablet Take 1 tablet by mouth daily. 07/30/2023 documented as of this encounter Plan of Treatment Not on file documented as of this encounter Visit Diagnoses Not on filedocumented in this encounter
--- OUTSIDE RECORDS SUMMARY | 2024-02-09 13:09 | XMS_ITS ---
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 Past Plans No past plan information found. Radiation Treatments * Plan Last Treated On Elapsed Days Fractions Treated Prescribed Fraction Dose Prescribed Total Dose [id number] 11/01/2023 13 4 of 4 250 cGy 1,000 cGy [id number] 10/26/2023 7 5 of 5 520 cGy 2,600 cGy Reference Point Last Treated On Elapsed Days Session Dose Total Dose [id number] 11/01/2023 13 250 cGy 3,600 cGy
--- OUTSIDE RECORDS SUMMARY | 2024-02-09 13:09 | XMS_ITS | Referral Summary ---
Author Organization [facility] Address [address] [place] [address] Care Team Providers Care Rail Washer Name Role Phone Unavailable Primary Care Provider Unavailabl e Source Comments Patient records contain information from all sites at [facility]. For routine questions regarding patient records, call [phone] during business hours, M-F 8:00 AM - 5:00 PM Central Time. Record requests for emergency care only can be directed to [phone] at any time.[facility] Allergies Active Allergy Reactions Criticality Noted Date Comments Chloroprocaine Itching 10/13/2023 Medications methylPREDNISol one (MedroL DosePak) 4 mg tablet TAKE DIRECTED FOR 6 DAYS 4 Active rosuvastatin (Crestor) 5 mg tablet Take 1 tablet by mouth daily. 4 Active mometasone (Elocon) 0.1 % cream Apply 1 Application topically 2 (two) times a day. Apply to the right breast during radiation treatments and for 1 week after treatments are complete. 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 Gender Identity Female 10/21/2023 7:48 PM CDT Sexual Orientation Straight 10/21/2023 7: 48 PM CDT Last Filed Vital Signs Vital Sign Reading Time Taken Comments Blood Pressure 164/60 10/13/2023 9:49 AM CDT Pulse 57 10/13/2023 9:49 AM CDT Temperature 37.2 ??C (98.9 ??F) 10/31/2023 8:36 AM CD T Respiratory Rate - - Oxygen Saturation - - Inhaled Oxygen Concentration - - Weight 60.2 kg (132 lb 11.5 oz) 10/31/2023 8:36 AM CDT Height - - Body Mass Index - - Plan of Treatment Not on file Procedures Procedure Name Priority Date/Time Associated Diagnosis Comments OUTSIDE MG MAMMOGRAM Routine 06/28/2023 10:50 AM CDT from Last 3 Months or Most Recently Relevant to Health Maintenance Results * MM surgical specimen RT-Outside Mammogram (06/28/2023 10:50 AM CDT) Narrative [facility]IM[facility] - 09/28/2023 1:35 PM CDT This order has been created and auto-finalized to support the import of outside images. If available, original interpretation can be found on the Media Tab in Chart Review, in Document Viewer, as an image in QREADS or as an Addendum. If a re-interpretation or overread is required please follow defined workflow.?? us Provider Not In System IMG BI PROCEDURES Final R esult IIMS NA from Last 3 Months or Most Recently Relevant to Health Maintenance Insurance [employer]
--- OUTSIDE RECORDS SUMMARY | 2024-02-09 13:09 | XMS_ITS ---
Author Organization [facility] Address [address] [place] [address] Care Team Providers Care Hospitality Associate Name Role Phone Unavailable Unavailable Unavailable Surgery Details Not on file Complications Check Surgery Details section. Procedure Estimated Blood Loss Check Surgery Details section. Procedure Findings Check Surgery Details section. Procedure Specimens Taken Check Surgery Details section.
--- OUTSIDE RECORDS SUMMARY | 2024-02-09 13:09 | XMS_ITS | Encounter Summary ---
Author Organization [facility] Address [address] [place] [address] Care Team Providers Care Speedboat Operator Name Role Phone Unavailable Primary Care Provider Unavailabl e Encounter Details Date Type Department Care Team (Late st Contact Info) Description 11/01/2023 Documentation Department of Radiation Oncology in [place], [place] [address] [place] [address] Arabella Smith M.D. [address] [place] [address] Social History Tobacco Use Types Packs/Day Years Used Date Smoking Tobacco: Never Smokeless Tobacco: Never [facility] Utilities Answer Date Recorded In [...] money to buy more. Never true 10/20/19 24 Within the past 12 months, t he [...] your living situation today? 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 - 11/01/2023 11:59 PM CDT DIAGNOSIS: 1. 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 Treatment Intent: Curative Concomitant Therapy: None Single Plan Treatment Course: 1xBreast Plan ID Fractions Dose / Fraction (cGy) Dose Treated (cGy) Dose Planned (cGy) First Treatment Last Treatment Elapsed Days [id number] 5 / 5 520 2600 2600 10/19/2023 10/26/2023 7 [id number] 4 / 4 250 1000 1000 10/27/2023 11/01/2023 5 Treatment Site Summary 3600 3600 10/19/2023 11/01/2023 13 Course Summary 10/19/2023 11/01/2023 13 Radiation Modality: Photons CLINICAL SUMMARY Starla Watkins completed radiation treatment as planned without interruptions. The course of treatment was tolerated well. The patient experienced toxicities of grade 1 dermatitis during radiation treatment. TREATMENT RESPONSE: Response to treatment will be determined by post-treatment imaging and/or laboratory work. RECOMMENDED FOLLOW UP: Primary Medical Oncologist. Follow-up will be with Dr. Valle. Signed by: Poonam Mena R.N., 11/30/2023 1:15 PM CDT [facility] [address] [place] [address] Cosigned by Arabella Smith M.D. 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
--- OUTSIDE RECORDS SUMMARY | 2024-02-09 13:09 | XMS_ITS | Encounter Summary ---
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 [address] [place] [address] Phone: tel: fax: [facility] [address] [place] [phone] Referral ID Status Reason Start Date Expiration Date V isits Requested Visits Authorized [id number] Authorized 10/24/2023 04/17/2024 19 19 Encounter Details Date Type Department Care Team (Latest Contact Info) Description 10/31/2023 9:00 AM CDT - 10/31/2023 11:59 PM CDT Hospital Encounter Department of Radiation Oncology in [place], [place] [address] [place] [phone] Arabella Smith M.D. [address] [place] [phone] Discharge Disposition: Home or Self Care Social History Tobacco Use Types Packs/Day Years Used Date Smoking Tobacco: Never Smokeless Tobacco: Never [facility] Utilities Answer Date Recorded In the past [...] your living situation today? 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
--- OUTSIDE RECORDS SUMMARY | 2024-02-09 13:09 | XMS_ITS | Clinical Summary ---
Author Organization [facility] Address [address] [place] [address]. [place] [address] Care Team Providers Care Jamb Cutter Name Role Phone Wendy Gonzalez MD Primary Care Provider Geronimo verduzco Active Problems Problem Noted Date Diagnosed Date Osteoarthritis of both thumbs 03/04/2021 Resolved Problems Problem Noted Date Diagnosed Date Resolved Date Bilateral hand pain 06/15/2018 06/29/19 19 Social History Tobacco Use Types Packs/Day Years Used Date Smoking Tobacco: Never Assessed Adolescent Education Answer Date Record ed Getting School Help Needed Not on file 02/01 Comments Unknown Sex and Gender Information Value Date Recorded Sex Assigned at Not on file Legal Sex Female 4:44 AM MEASUREMENT TECHNICIAN Gender Identity Not on file Sexual Orientation Not on file Plan of Treatment Health Maintenance Due Date Last Done Comments ADVANCE CARE PLANNING 1950 ANNUAL REVIEW OF HM ORDERS 1948 CT COLONOGRAPHY 1950 DEXA 1950 FIT 1948 FLEX SIG 1948 sDNA (Cologuard) 1948 COLONOSCOPY 1958 COLORECTAL CANCER SCREENING 1958 HEPATITIS C SCREENING 1966 LIPID 1988 GLUCOSE 01/31/2009 01/31/2006 FALL RISK ASSESSMENT 2013 MEDICARE ANNUAL WELLNESS VISIT 2013 DTAP/TDAP/TD IMMUNIZATION (3 - Td or Tdap) 11/09/2022 11/09/2012, 06/19/2008, 01/10/1998 PHQ-2 (once per calendar year) 2023 RSV VACCINE (1 - 1-dose 75+ series) 06/23/2023 COVID-19 Vaccine ( - season) 2023 02/25/2021, 07/10/2020, 06/12/2020 INFLUENZA VACCINE (#1) 2023 , 12/17/2019, 01/30/2019, Additional history exists Pneumococcal Vaccine: 65+ Years Completed 12/09/2014, 12/05/2013 ZOSTER IMMUNIZATION Completed 02/19/2020, 12/20/2019, 11/23/2011 HPV IMMUNIZATION Aged Out No longer e ligible based on patient's age to complete this topic MENINGITIS IMMUNIZATION Aged Out No l onger eligible based on patient's age to complete this topic RSV MONOCLONAL ANTIBODY Aged Out No l onger eligible based on patient's age to complete this topic Procedures Procedure Name Priority Date/Time Associated Diagnosis Comments BASIC METABOLIC PANEL STAT 01/31/2006 5:47 AM CDT from Last 3 Months or Most Recently Relevant to Health Maintenance Results * Basic metabolic panel (01/31/2006 5:47 AM CDT) Sodium 144 133 - 144 mmol/L [facility] Potassium 3.4 3.4 - 5.3 mmol/L [facility] Chloride 105 94 - 109 mmol/L [facility] Carbon Dioxide 29 20 - 32 mmol/L [facility] Glucose 97 60 - 110 mg/dL [facility] Urea Nitrogen 19 7 - 30 mg/dL [facility] Creatinine 0.82 0.60 - 1.30 mg/dL [facility] GFR Estimate 76 >60 mL/min/1.7 m2 [facility] GFR Estimate If Black >90 >60 mL/min/1.7 m2 [facility]ISYS Comment: Stages of Chronic Kidney Disease Stage 1: ??GFR 90 or greater and other evidence of kidney damage* Stage 2: ??GFR 60-89 and other evidence of kidney damage * Stage 3: ??GFR 30-59 Stage 4: ??GFR 15-29 Stage 5: ??GFR less than 15 or dialysis *Chronic kidney disease is defined as kidney damage or GFR less than 60 mL/min/1.73 m2 for three months or greater. ??Kidney damage is defined as pathologic abnormalities or markers or damage, including abnormalities in blood or urine tests or imaging studies. Calcium 9.1 8.5 - 10.4 mg/dL M[facility] Anion Gap 10 6 - 17 mmol/L MISYS 01/31/2006 5:47 AM CDT 01/31/2006 6:20 AM CDT us [facility] LAB - BLOOD ORDERABLES Final R esult MISYS from Last 3 Months or Most Recently Relevant to Health Maintenance Insurance [employer] AETNA MEDICARE ADVANTAGE Care Teams Jamb Cutter Relationship Specialty Start Date End Date Wendy Gonzalez MD PCP - General Family Practice 06/08/18
--- OUTSIDE RECORDS SUMMARY | 2024-02-09 13:09 | XMS_ITS | Clinical Summary ---
Author Organization [facility] Address [address] [place] [address] Care Team Providers Care Horse Trainer Name Role Phone Unavailable Primary Care Provider Unavailabl e Source Comments Patient records contain information from all sites at [facility]. For routine questions regarding patient records, call [phone] during business hours, M-F 8:00 AM - 5:00 PM Central Time. Record requests for emergency care only can be directed to [phone] at any time.[facility] Allergies Active Allergy Reactions Criticality Noted Date [...] from 06/28/2023:Stage IB(pT1c, pN0(sn), cM0, G3, ER-, MT-, HER2-) - Unsigned Social History Tobacco Use Types Packs/Day Years Used Date Smoking Tobacco: Never Smokeless Tobacco: Never Tobacco Cessation:Counseling Given: Not Answered [facility] Utilities Answer Date Recorded In the past [...] your living situation today? 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 Gender Identity Female 10/21/2023 7:48 PM CDT [...] Mass Index - - Plan of Treatment Health Maintenance Due Date Last Done Comments CT Colonography 1948 Cologuard 1948 Colonoscopy 1948 Colorectal Cancer Surveillance 1948 Fasting Glucose for Diabetes Screening 1950 Hepatitis C Screening 1948 Depression Screening (Annual PHQ-2) 04/18/2023 Fall Risk Screen (Annual) 04/18/2023 COVID-19 Vaccine ( season) 2023 01/19/2023, 08/17/2022, 01/06/2022, Additional history exists Influenza Vaccine (#1) 2024 , 01/29/2022, 01/19/2021, Additional history exists Mammogram 06/27/2024 06/28/2023, 06/16, 05/25/2023, Additional history exists DTaP,Tdap,and Td Vaccines (4 - Td or Tdap) 02/24/2033 02/24/2023, 11/09/2012, 06/19/2008 Pneumococcal vaccine (65+ years) Completed 12/09/2014, 12/05/2013 Zoster Vaccines Completed 02/19/2020, 06/2019, 11/23/2011 RSV vaccine - (32-36 weeks) or 60+ years Completed 01/30/2023 HPV Vaccines Aged Out No longer eligi ble based on patient's age to complete this [...]
--- OUTSIDE RECORDS SUMMARY | 2024-02-09 13:09 | XMS_ITS | Referral Summary ---
Author Organization [facility] Address [address] [place] [address]. [place] [address] Care Team Providers Care Flavoring Maker Name Role Phone Wendy Gonzalez MD Primary [...] on file Legal Sex Female 4:44 AM MOISTURE TESTER Gender Identity Not on file Sexual Orientation Not on file Plan of Treatment Not on file Procedures [...] Most Recently Relevant to Health Maintenance Insurance [employer] AET MEDICARE ADVANTAGE Care Teams Flavoring Maker Relationship Specialty Start Date End Date Wendy Gonzalez MD PCP - General Family Practice 06/08/18
== END 2024-02-07 09:07 | disposition home or self-care (01) ==
LOC: NFLDREF 02-09 13:02
PROVIDERS: PCP Family Medicine; Referring Provider Family Medicine; Visit Provider Family Medicine
DX: E78.5 Hyperlipidemia, unspecified (principal); I10 Essential (primary) hypertension; M85.80 Other specified disorders of bone density and structure, unspecified site; R53.83 Other fatigue
CPT/HCPCS: 80053; 80061; 82306

== ENCOUNTER 2024-03-12 10:51 | Outpatient (CLI) | payer MEDICARE, SELFPAY ==
--- OUTSIDE RECORDS SUMMARY | 2024-03-12 10:54 | XMS_ITS ---
Author Organization [facility] Address [address] [place] [address] Care Team Providers Care Adjunct Faculty For Medical Terminology Name Role Phone Unavailable Primary Care Provider Unavailabl e Active Problems Problem Noted Date Diagnosed Date Malignant Neoplasm Of Breast Upper Inner Quadrant Female Right 09/28/2023 Cancer Staging:Pathologic stage from 06/28/2023:Stage IB(pT1c, pN0(sn), cM0, G3, ER-, HI-, HER2-) - Unsigned Current Oncology Plans No current plan information found. Past Plans No past plan information found. Radiation Treatments * Plan Last Treated On Elapsed Days Fractions Treated Prescribed Fraction Dose Prescribed Total Dose [id number] 11/01/2023 13 4 of 4 250 cGy 1,000 cGy [id number] 10/26/2023 7 5 of 5 520 cGy 2,600 cGy Reference Point Last Treated On Elapsed Days Session Dose Total Dose [id number] 11/01/2023 13 250 cGy 3,600 cGy
--- OUTSIDE RECORDS SUMMARY | 2024-03-12 10:54 | XMS_ITS | Referral Summary ---
Author Organization [facility] Address [address] [place] [address] Care Team Providers Care Strategic Planning Director Name Role Phone Unavailable Primary Care Provider Unavailabl e Source Comments Patient records contain information from all sites at [facility]. For routine questions regarding patient records, call [phone] during business hours, M-F 8:00 AM - 5:00 PM Central Time. Record requests for emergency care only can be directed to [phone] at any time.[facility] Allergies Active Allergy Reactions Criticality Noted [...] from 06/28/2023:Stage IB(pT1c, pN0(sn), cM0, G3, ER-, CT-, HER2-) - Unsigned Social History Tobacco Use Types Packs/Day Years Used Date Smoking Tobacco: Never Smokeless Tobacco: Never Tobacco Cessation:Counseling Given: Not Answered [facility] Utilities Answer Date Recorded In the past [...] your living situation today? 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 us Provider Not In System IMG BI PROCEDURES Final R esult IIMS NA from Last 3 Months or Most Recently Relevant to Health Maintenance Insurance AETNA
--- OUTSIDE RECORDS SUMMARY | 2024-03-12 10:54 | XMS_ITS | Referral Summary ---
Author Organization [facility] Address [address] [place] [address]. [place] [address] Care Team Providers Care Air Compressor Engineer Name Role Phone Wendy Gonzalez MD Primary [...] on file Legal Sex Female 4:44 AM MEDIC TECHNICIAN Gender Identity Not on file Sexual [...] Stages of Chronic Kidney Disease Stage 1: GFR 90 or greater and other evidence of kidney damage* Stage 2: GFR 60-89 and other evidence of kidney damage * Stage 3: GFR 30-59 Stage 4: GFR 15-29 Stage 5: GFR less than 15 or dialysis *Chronic kidney disease is defined as kidney damage or GFR less than 60 mL/min/1.73 m2 for three months or greater. Kidney damage is defined as pathologic abnormalities or [...] Most Recently Relevant to Health Maintenance Insurance [employer] AET MEDICARE ADVANTAGE Care Teams Air Compressor Engineer Relationship Specialty Start Date End Date Wendy Gonzalez MD PCP - General Family Practice 06/08/18
--- OUTSIDE RECORDS SUMMARY | 2024-03-12 10:54 | XMS_ITS ---
Author Organization [facility] Address [address] [place] [address] Care Team Providers Care Final Finisher Name Role Phone Unavailable Unavailable Unavailable Surgery Details Not on file Complications Check Surgery Details section. Procedure Estimated Blood Loss Check Surgery Details section. Procedure Findings Check Surgery Details section. Procedure Specimens Taken Check Surgery Details section.
--- OUTSIDE RECORDS SUMMARY | 2024-03-12 10:54 | XMS_ITS | Clinical Summary ---
Author Organization [facility] Address [address] [place] [address]. 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
--- OUTSIDE RECORDS SUMMARY | 2024-03-12 10:54 | XMS_ITS | Clinical Summary ---
Author Organization [facility] Address [place], [place] [address] Care Team Providers Care Velvet Steamer Name Role Phone Vikki Crump MD Primary Care Provider + Allergies No known active allergies Medications Medication Sig Dispensed Refills Start Date End Date Status MOXIFLOXACIN 0.1% INTRACAMERAL INJECTION (JYOTI AMB MIX) Use as directed for procedure. Exp: 0.2 mL 11/01/2016 Active Active Problems Problem Noted Date [...] Health Maintenance Due Date Last Done Comments Tdap 06/23/1959 Depression screening for age 12+ 1960 BMI (ht and wt on same day) for age 18+ 1966 Hepatitis C screening for ag e 18-79 1966 Tetanus booster 1968 Colonoscopy through age 75 1993 Lipids for age 45-75 1993 Zoster (shingles) series for age 50+ (1 of 2) 1998 DEXA/DXA scan for age 65+ 2013 Medicare Wellness for age 65+ 2013 Pneumococcal series for age 65+ (1 of 1 - PCV) 2013 RSV vaccine for adults or (1 - 1-dose 75+ series) 06/23/2023 COVID-19 vaccine series ( season) 2023 01/19/2023, 08/17/2022, 01/06/2022, Additional history exists Influenza for age 65+ 12/18/2023 Care Teams Velvet Steamer Relationship Specialty Start Date End Date Vikki Crump MD [address] [place] [address] PCP - General Family Practice 04/28/20
--- OUTSIDE RECORDS SUMMARY | 2024-03-12 10:54 | XMS_ITS | Clinical Summary ---
Author Organization [facility] Address [address] [place] [address] Care Team Providers Care Telegraph Installer Name Role Phone Unavailable Primary Care Provider Unavailabl e Source Comments Patient records contain information from all sites at [facility]. For routine questions regarding patient records, call [phone] during business hours, M-F 8:00 AM - 5:00 PM Central Time. Record requests for emergency care only can be directed to [phone] at any time.[facility] Allergies Active Allergy Reactions Criticality Noted [...] from 06/28/2023:Stage IB(pT1c, pN0(sn), cM0, G3, ER-, [place]-, HER2-) - Unsigned Social History Tobacco Use Types Packs/Day Years Used Date Smoking Tobacco: Never Smokeless Tobacco: Never Tobacco Cessation:Counseling Given: Not Answered [facility] Utilities Answer Date Recorded In the past [...] your living situation today? 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
--- NOTE | 2024-03-12 11:15 | CRLHL7_ITS ---
For Patients: As a result of the Century Cures Act, medical imaging exams and procedure reports are released immediately into your electronic medical record. You may view this report before your referring provider. If you have questions, please contact your health care provider. Indication: Localized swelling, mass, lump Technique: Grayscale and color Doppler ultrasound of the right upper anterior chest wall adjacent to port site Comparison: None Findings: Circumscribed nodular structure is present within the subcutaneous fat measuring 6 x 3 x 6 millimeters. Internal reticular echoes are noted. Impression: Complex cystic area within the right upper anterior chest wall in the subcutaneous fat measuring 6 x 3 x 6 millimeters. This is likely benign but indeterminate. Ultrasound-guided biopsy is recommended. Dictated by Wai Diaz MD @ 03/12/2024 1:01:45 PM (Electronically Signed)
== END 2024-03-12 10:52 | disposition home or self-care (01) ==
LOC: US 10:52
PROVIDERS: PCP Family Medicine; Visit Provider Physician Assistant
DX: R22.2 Localized swelling, mass and lump, trunk (principal); C50.911 Malignant neoplasm of unspecified site of right female breast
CPT/HCPCS: 76604

== ENCOUNTER 2024-03-26 12:53 | Outpatient (CLI) | payer MEDICARE, SELFPAY ==
--- OUTSIDE RECORDS SUMMARY | 2024-03-26 12:55 | XMS_ITS ---
Author Organization [facility] Address [address] [place] [address] Care Team Providers Care Wall Man Name Role Phone Unavailable Primary Care Provider Unavailabl e Active Problems Problem Noted Date Diagnosed Date Malignant Neoplasm Of Breast Upper Inner Quadrant Female Right 09/28/2023 Cancer Staging:Pathologic stage from 06/28/2023:Stage IB(pT1c, pN0(sn), cM0, G3, ER-, PA-, HER2-) - Unsigned Current Oncology Plans No current plan information found. Past Plans No past plan information found. Radiation Treatments * Plan Last Treated On Elapsed Days Fractions Treated Prescribed Fraction Dose Prescribed Total Dose [id number] 11/01/2023 13 4 of 4 250 cGy 1,000 cGy [id number] 10/26/2023 7 5 of 5 520 cGy 2,600 cGy Reference Point Last Treated On Elapsed Days Session Dose Total Dose [id number] 11/01/2023 13 250 cGy 3,600 cGy
--- OUTSIDE RECORDS SUMMARY | 2024-03-26 12:55 | XMS_ITS | Clinical Summary ---
Author Organization [employer] [facility] Address [place], [place] [address] Care Team Providers Care Vice President & General Manager [employer] Name Role Phone Vikki Crump MD Primary Care Provider + Allergies No known active allergies Medications MOXIFLOXACIN 0.1% INTRACAMERAL INJECTION (JYOTI AMB MIX) Use as directed for procedure. Exp: 0.2 mL 11/01/2016 3:37 PM CDT 7 Active Active Problems Problem Noted Date Diagnosed [...] Paying Living Expenses Not on file 04/16/2021 Comments Unknown Sex and Gender Information Value Date Recorded Sex Assigned at Not on file Legal Sex Female 6:52 AM DIRECTOR OF ROOMS Gender Identity Not on file Sexual Orientation [...] 1-dose 75+ series) 06/23/2023 COVID-19 vaccine series (2023- season) 2023 01/19/2023, 08/17/2022, 01/06/2022, Additional history exists Influenza for age 65+ 12/18/2023 Insurance [employer] [facility] AETNA MR Care Teams Vice President & General Manager [employer] Relationship Specialty Start Date End Date Vikki Crump MD [address] [place] [address] PCP - General Family Practice 04/28/20
--- OUTSIDE RECORDS SUMMARY | 2024-03-26 12:55 | XMS_ITS | Referral Summary ---
Author Organization [facility] Address [address] [place] [address]. [place] [address] Care Team Providers Care Public Relations Professional Name Role Phone Wendy Gonzalez MD Primary [...] on file Legal Sex Female 4:44 AM COMPUTING ARCHITECT Gender Identity Not on file Sexual Orientation [...] Most Recently Relevant to Health Maintenance Insurance [employer] AET MEDICARE ADVANTAGE Care Teams Public Relations Professional Relationship Specialty Start Date End Date Wendy Gonzalez MD PCP - General Family Practice 06/08/18
--- OUTSIDE RECORDS SUMMARY | 2024-03-26 12:55 | XMS_ITS | Clinical Summary ---
Author Organization [facility] Address [address] [place] [address]. [place] [address] Care Team Providers Care Cyanide Case Hardener Name Role Phone Wendy Gonzalez MD Primary [...] on file Legal Sex Female 4:44 AM ADOLESCENT SPECIALIST Gender Identity Not on file Sexual [...] Most Recently Relevant to Health Maintenance [facility] AETNA MEDIC[facility] ADVANTAGE Care Teams Cyanide Case Hardener Relationship Specialty Start Date End Date Wendy Gonzalez MD PCP - General Family Practice 06/08/18
--- OUTSIDE RECORDS SUMMARY | 2024-03-26 12:55 | XMS_ITS | Clinical Summary ---
Author Organization [facility] Address [address] [place] [address] Care Team Providers Care Fire Technology Instructor Name Role Phone Unavailable Primary Care Provider Unavailabl e Source Comments Patient records contain information from all sites at [facility]. For routine questions regarding patient records, call [phone] during business hours, M-F 8:00 AM - 5:00 PM Central Time. Record requests for emergency care only can be directed to [phone] at any time.[facility] Allergies Active Allergy Reactions Criticality Noted Date [...] from 06/28/2023:Stage IB(pT1c, pN0(sn), cM0, G3, ER-, [place]-, HER2-) - Unsigned Social History Tobacco Use Types Packs/Day Years Used Date Smoking Tobacco: Never Smokeless Tobacco: Never Tobacco Cessation:Counseling Given: Not Answered [facility] Utilities Answer Date Recorded In the past [...] your living situation today? I have a [facility] place to live 10/20/2023 Comments Unknown Sex and Gender Information Value Date Recorded Sex Assigned at Female 10/21/2023 7:48 PM CDT Legal Sex Unknown 04/03/2020 9:03 PM DIRECTOR VETERINARY Gender Identity Female 10/21/2023 7:48 PM CDT [...] PHQ-2) 04/18/2023 Fall Risk Screen (Annual) 04/18/2023 Mammogram 06/27/2024 06/28/2023, 06/16, 05/25/2023, Additional history exists DTaP,Tdap,and Td Vaccines (4 - Td or Tdap) 02/24/2033 02/24/2023, 11/09/2012, 06/19/2008 Pneumococcal vaccine (65+ years) Completed 12/09/2014, 12/05/2013 Zoster Vaccines Completed 02/19/2020, 06/2019, 11/23/2011 RSV vaccine - (32-36 weeks) or 60+ years Completed 01/30/2023 COVID-19 Vaccine Completed 12/18/2023, 07/2022, 08/17/2022, Additional history exists Influenza Vaccine Completed 12/18/2023, , 01/29/2022, Additional history exists HPV Vaccines Aged Out No longer eligi [...]
--- OUTSIDE RECORDS SUMMARY | 2024-03-26 12:55 | XMS_ITS ---
Author Organization [facility] Address [address] [place] [address] Care Team Providers Care Supervisor Painting Name Role Phone Unavailable Unavailable Unavailable Surgery Details Not on file Complications Check Surgery Details section. Procedure Estimated Blood Loss Check Surgery Details section. Procedure Findings Check Surgery Details section. Procedure Specimens Taken Check Surgery Details section.
--- OUTSIDE RECORDS SUMMARY | 2024-03-26 12:55 | XMS_ITS | Referral Summary ---
Author Organization [facility] Address [address] [place] [address] Care Team Providers Care Lead Janitor Name Role Phone Unavailable Primary Care Provider Unavailabl e Source Comments Patient records contain information from all sites at [facility]. For routine questions regarding patient records, call [phone] during business hours, M-F 8:00 AM - 5:00 PM Central Time. Record requests for emergency care only can be directed to [phone] at any time.[facility] Allergies Active Allergy Reactions Criticality Noted Date [...] from 06/28/2023:Stage IB(pT1c, pN0(sn), cM0, G3, ER-, [place]-, HER2-) - Unsigned Social History Tobacco Use Types Packs/Day Years Used Date Smoking Tobacco: Never Smokeless Tobacco: Never Tobacco Cessation:Counseling Given: Not Answered [facility] Utilities Answer Date Recorded In the [...] your living situation today? 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
--- NOTE | 2024-03-26 13:00 | CRLHL7_ITS ---
For Patients: As a result of the Century Cures Act, medical imaging exams and procedure reports are released immediately into your electronic medical record. You may view this report before your referring provider. If you have questions, please contact your health care provider. ULTRASOUND-GUIDED RIGHT UPPER CHEST SOFT TISSUE MASS BIOPSY CLINICAL HISTORY: History of breast cancer. New right upper chest subcutaneous nodule. COMPARISON STUDIES: Ultrasound 03/12/2024 TECHNIQUE: Real-time ultrasound with image documentation was used for targeting the breast lesion. Core biopsy specimens were obtained using an automated gun with an 18-gauge biopsy needle. CONSENT and TIME OUT: The procedure, risks, and alternatives were explained to the patient and a consent was signed. [place] Protocol was followed including pre-procedure verification that relevant information/documentation was available, reviewed and properly matched to the patient; consent accurate and complete; and equipment and supplies available. Time Out was conducted just prior to starting procedure to verify the four required elements: patient identity, correct side/site marked (if applicable), procedure, relevant images/results properly labeled and displayed (if applicable). PROCEDURE: The patient was positioned supine on the ultrasound table. The right upper chest was prepped with ChloraPrep. 8 cc of 1 percent lidocaine used for local anesthesia. Core samples were obtained. The specimens were placed in 10% formalin and sent to the pathology department. Pressure was held on the biopsy site until all bleeding subsided. The skin incision was closed with Steri-Strips. An ice pack was positioned over the biopsy site. Post-biopsy instructions were reviewed with the patient, and a written copy was given to her. LATERALITY: Right upper breast LESION: Solid and cystic lesion within the subcutaneous fat measuring 6 x 3 x 6 millimeters. SUSPICION FOR MALIGNANCY: Low NUMBER OF SAMPLES: 5 IMPRESSION: Ultrasound-guided right upper chest wall soft tissue mass. Dictated by Wai Diaz MD @ 03/27/2024 12:39:09 PM (Electronically Signed)
== END 2024-03-26 12:54 | disposition home or self-care (01) ==
LOC: US 12:54
PROVIDERS: PCP Family Medicine; Visit Provider Physician Assistant
DX: R93.89 Abnormal findings on diagnostic imaging of other specified body structures (principal); R22.2 Localized swelling, mass and lump, trunk; C50.911 Malignant neoplasm of unspecified site of right female breast
CPT/HCPCS: 20206; 76942; 88304; A4649

== ENCOUNTER 2024-05-01 10:15 | Outpatient (RCR) | payer MEDICARE, SELFPAY ==
--- NOTE | 2023-06-06 09:47 | PT.OPEX ---
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 Her tumor is small right now the size of a pea. Plan is to have chemo and radiation but she is not sure when that will start. She stays active riding her horse, walking and performing yoga. Patient reports no history of neck or shoulder issues. She is in her best shape ever as she recently lost 40#, quit fast food and increased her bone density. She is most worried about losing her strength and bone density after treatment. Date of Surgery (If applicable) 06/14/23 Current Work Status Retired Objective Other/Pertinent Objective AROM standing: Shoulder flexion L 159 R 168 abduction L 165 R 166 [place] L 156 R 161 IR T5 B ER T3B Posture: increased kyphosis and protracted shoulders Joint mobility: posterior glide of GH inferior glide of GH Strength: shoulder flexion 5/5 B shoulder abduction 5/5 B shoulder IR 5/5 B shoulder ER 4+/5 B hip flexors 4+/5 B knee extensors 4+/5 B Pec length in supine abd/ER: no restrictions Functional Test Performed & Score Pre op SPADI: pain 0 disability 0 Assessment Assessment/Impression Patient presents to PT pre- operatively for planned Breast Cancer surgery to include lumpectomy and planned SLNB on 06/14/23. Assessment today included baseline UE ROM, postural, and joint mobility measurements which are to be compared to measurements retaken 4 weeks post-surgery. At that time, any reduced movement, decline in function, or postural issues will be addressed with skilled care and new goals will be established. Education was given today regarding post-operative signs of infection, axillary cording, seroma formation, and home program to be performed within the first 3-4 weeks post-operatively focusing on UE mobility within surgical restrictions. Primary Functional Limitations none Plan of Care Rehabilitation Potential Good Physical Therapy Goals Goals pre op 1. Pt demonstrates awareness of post-operative movement restrictions and HEP to facilitate lymphatic regeneration and reduce the risk of seroma formation, axillary web syndrome and lymphedema while ensuring shoulder joint mobility. Treatment Plan/Direct Interventions Ice/Cold/Vasopneumatic,Joint Mobilization,Manual Therapy, Neuromuscular Re-ed,Self-Care/ Home Management,Therapeutic Activities,Therapeutic Exercises Frequency/Duration 1-4 visits post operatively, additional visits may be required after radiation treatment Patient Will Be Discharged From Therapy Completion of LTG(s), Independent w/HEP Evaluation Billing Untimed Code Treatment Minutes 21 Complexity Low Certification Information Initial Certification Date 06/06/23 Ending Certification Date 08/29/23 Provider Signature Shows Agreement With POC & Medical Necessity Physician Signature & Date Requested Please Sign/Date Here Physician Comment/Change : Physician NPI Number #
--- NOTE | 2023-06-08 17:09 | OT.OPLE2 ---
OT Outpatient Lymphedema Eval* OT Outpatient Lymphedema Eval* Start: 06/08/23 14:15 Freq: Status: Active Protocol: Document 06/08/23 14:15 AMB (Rec: 06/08/23 17:06 AMB [id number]) E-signed By Margaret Benavidez, OTR/L, CLT, ARMATURE WINDER HELPER REPAIR OT Outpatient Evaluation Details Type Type Eval Complexity Low Insurance Information Insurance Information Insurance Information Medicare B OT OP Lymphedema Evaluation Current Condition/Medical Diagnosis Referring Provider Dr Lupe Arias Treatment Diagnosis Lymphedema Risk due to breast Cancer Date Of Onset Right breast lumpectomy with SLND 06/28/23 Medical History Medical History Cancer Treatment/Surgery,HTN, Asthma/Respiratory Disorder Medical History Comments Patient underwent a routine mammogram in April of 2023. Mammogram noted a suspicious spot in the right breast. An ultrasound was obtained that showed 4 x 6 mm hypoechoic nodule in the right breast at 1:00 7 cm from the nipple. This was subsequently biopsied on 05/25/2023. Biopsy came back as invasive ductal carcinoma, grade 2 of 3, no angiolymphatic invasion and no associated DCIS, ER/AR negative and HER2 negative. Other PMH (copied from oncology chart): PFSH Active Problems (Updated 06/01 @ 12:08 by Lupe Arias MD) Invasive ductal carcinoma of breast (Acute) C50.919 - Malignant neoplasm of unspecified site of unspecified female breast (ICD -10) Dyslipidemia (Chronic) E78.5 - Hyperlipidemia, unspecified (ICD-10) Bradycardia (Chronic 2016) junctional rhythm in am, no Tx , did see cardiology.(04/2020) R00.1 - Bradycardia, unspecified (ICD-10) Colon polyp (Acute) 2012, sessile K63.5 - Polyp of colon (ICD-10 ) White coat syndrome with diagnosis of hypertension ( Chronic) I10 - Essential (primary) hypertension (ICD-10) Osteopenia (Chronic) lumbar compression fx 2019, dislocated jaw from fosamax M85.80 - Other specified disorders of bone density and structure, unspecified site ( ICD-10) Osteoarthritis of carpometacarpal (CMC) joints of both thumbs (Chronic) did get braces from [facility] in [place] M18.0 - Bilateral primary osteoarthritis of first carpometacarpal joints (ICD-10 ) Osteoarthritis of both thumbs (Acute ~2017) M18.0 - Bilateral primary osteoarthritis of first carpometacarpal joints (ICD-10 ) Medical History (Reviewed @ 11:53 by Lupe Arias MD) Hypertension I10 - Essential (primary) hypertension (ICD-10) Dyslipidemia E78.5 - Hyperlipidemia, unspecified (ICD-10) Bradycardia (2017) R00.1 - Bradycardia, unspecified (ICD-10) Pneumonitis J18.9 - Pneumonia, unspecified organism (ICD-10) History of benign breast biopsy (2004) Z98.890 - Other specified postprocedural states (ICD-10) Diverticulosis of intestine K57.90 - Diverticulosis of intestine, part unspecified, without perforation or abscess without bleeding (ICD-10) Compression fracture of lumbar vertebra S32.000A - Wedge compression fracture of unspecified lumbar vertebra, initial encounter for closed fracture (ICD-10) Asthma (07/12/12) J45.909 - Unspecified asthma, uncomplicated (ICD-10) Surgical History Surgical History Surgical History (Reviewed @ 11:53 by Lupe Arias MD) History of colon polyps (~2012 ) Z86.010 - Personal history of colonic polyps (ICD-10) Status post abdominal hysterectomy (1971) Z90.710 - Acquired absence of both cervix and uterus (ICD-10 ) History of cataract extraction (2019) Z98.49 - Cataract extraction status, unspecified eye (ICD- 10) History of abdominal hysterectomy (07/12/12) Z90.710 - Acquired absence of both cervix and uterus (ICD-10 ) Medications Medications (copied from oncology chart) [alguecal plus PO QDAY] cinnamon bark (Cinnamon) 500 mg PO QDAY coenzyme Q10 125 mg PO QDAY collagen (bovine) 100% 1 applic topical Q24H ferrous sulfate (Feosol) 325 mg PO QDAY melatonin 10 mg PO .Bedtime as needed PRN milk thistle 1,000 mg PO QDAY omega-3 fatty acids 1,000 mg PO QDAY rosuvastatin 5 mg PO QDAY [strontium 680 mg PO DAILY] [Tumeric 1,600 mg PO QDAY] Family History Family History of Lymphedema No Current Work Status Current Work Status Comments 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 Subjective Subjective Pt states she is interested in learning more about lymphedema as she does not know anything about it. Pt states she is not certain of her treatment following surgery, possibly chemo and she thinks she will for sure need radiation. Pt states she was shocked to find out she had cancer as she has really been working hard over the past year to improve her lifestyle, states she has lost 40# and now exercises every day. Pt does Yoga for 30 minutes in the morning and walks [phone] steps or more every day. Pt has a horse, cares for her horse and also has a dog that she walks daily (former reimbursement consultant). Living Situation Current Living Situation Home With Spouse Or SO Patient Difficulties Patient Difficulties Comments No difficulties Problem List Problem List Limited Knowledge of Lymphedema Treatment/Condition /Precautions,Limited Knowledge of Skin Care & Infection Precautions,Significant Risk For Infection For Lymphedema Related Complications,Does Not Have a HEP Exercise History Does Patient Exercise Regularly Yes Exercise Comments Walks at least 7-10,000 steps daily, does 30 minutes of Yoga daily, very active outdoors on their acreage and taking care of her horse. Pain Pain No ROM/Strength ROM/Strength Comments Pt demonstrates full AROM and strength throughout BUE. Compression History Does Patient Currently Wear Compression No During Daytime Does Patient Currently Wear Compression No At Night Current Swelling (Location/Pitting/Texture) Pitting Scale: 0 = No pitting 1+ Tissue returns to normal almost immediately 2+ Tissue returns after 15-30 seconds 3+ Tissue returns after 1-1/2 minutes 4+ Tissue returns after 2-3 minutes N/A Tissue no longer pits due to induration Tissue texture: Soft or indurated Clinical Presentation Area Right upper quadrant will be at risk for lymphedema. Circumferential Measurements Upper Extremity Left Upper Extremity MCP (in cm) 19.0 Palm (in cm) 19.5 Smallest Wrist Measurement (in cm) 15.8 10 cm Above Smallest Wrist Measurement 19.0 20 cm Above Smallest Wrist Measurement 22.8 30 cm Above Smallest Wrist Measurement 24.0 40 cm Above Smallest Wrist Measurement 27.0 Total Girth in cm 147.1 UE Volume C 241.60 UE Volume D 348.56 UE Volume E 435.83 UE Volume F 518.04 Upper Extremity Volume Total in cm 1,544.03 Right Upper Extremity MCP (in cm) 20.1 Palm (in cm) 20.5 Smallest Wrist Measurement (in cm) 15.8 10 cm Above Smallest Wrist Measurement 20.2 20 cm Above Smallest Wrist Measurement 23.6 30 cm Above Smallest Wrist Measurement 24.6 40 cm Above Smallest Wrist Measurement 28.7 Total Girth in cm 153.5 UE Volume C 259.11 UE Volume D 382.42 UE Volume E 462.26 UE Volume F 566.29 Upper Extremity Volume Total in cm 1,670.08 Assessment Assessment Pt presents pre-operatively for initiation of lymphedema surveillance program. Following her 06/28/23 right sided lumpectomy with SLND, pt will be at risk for lymphedema in her RUE / upper quadrant due to LN removal. Pt may need radiation which would add to her risk. Pt will benefit from skilled OT intervention for pt education, monitoring / surveillance in order to provide early detection / intervention to assure best positive outcomes with fewer lymphedema related complications if the need arises. Pt demonstrates good interest and motivation to be an active participant in her care. Pt asked multiple pertinent questions and received satisfactory answers. Pt was given contact info and encouraged to reach out if more questions arise. Patient Goals Patient Goals 1. Pt will demonstrate a general understanding of the lymphatic system, s/s of lymphedema, treatment of lymphedema, implications of untreated lymphedema, s/s of infection and the correlation of infection related to lymphedema. 3 months 2. Pt will be compliant with quarterly assessments for lymphedema surveillance in order to obtain early intervention with best outcomes if needed. 12 months Treatment Plan Treatment Plan Evaluation,Edema Control,Joint Mobilization,Manual Therapy, Wound Care/Scar Management, Therapeutic Exercise, Therapeutic Activities,Self- Care/Home Management,Education Other Treatment Plan 1 visit 4 weeks p/o, then quarterly x 12 months or prn if concerns arise. Certification Certification Statement I Certify That: Therapy Services Provided, Therapy Plan Established, Therapy Plan Reviewed Certification Information Clinic ID # [id number] Initial Certification Date 06/08/23 Recertification Due Date 09/06/23 Provider Signature Shows Agreement With POC & Medical Necessity Physician Comment/Change Comment or Changes Physician NPI Number #
--- NOTE | 2023-07-13 11:58 | PT.OPDNX ---
PT [place] Outpatient Daily Note PT [facility] Outpatient Daily Note Start: 06/06/23 07:44 Freq: Status: Active Protocol: Document 07/13/23 07:56 ENM (Rec: 07/13/23 10:50 ENM [id number]) E-signed By Mona Sam DPT PT OP Daily Progress Note Visit Information Note Type Re-Evaluation Visit Number 2 Insurance Information Recert Due Date 10/11/23 Insurance Name Medicare B Medical Diagnosis right breast lumpectomy with SLND 06/28/23 Treating Diagnosis decreased shoulder ROM, swelling in right breast Referring MD Arias Subjective Subjective Patient presents to PT for post-operative evaluation after right breast lumpectomy with SLND on 06/28/23 for 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 Three lymph nodes were taken out which were negative and margins were clean. Plan is to start chemo on July 25 and radiation after. Patient states that she has had no difficulty or pain since the surgery. Was told she has a seroma in her right breast. Patient is needing to leave her PT appointment as soon as she can so that she can meet with Dr. Arias. Will have her chemo port put in tomorrow Pain Comments none Objective Other/Pertinent Objective AROM standing: Shoulder flexion L 159 R to 90 no difficulty abduction L 165 R to 90 no difficulty Posture: increased kyphosis and protracted shoulders Palpation: no tenderness to palpation along breast and axilla Two incisions are healing well , moderate tissue restrictions at incisions Observation/swelling: Patient has bruising through medial right breast and a seroma present in superior breast Cording: - Functional Test Performed & Score Post op SPADI pain disability Pre op SPADI: pain 0 disability 0 Patient Instructed in Risks/Benefits Yes Therapeutic Exercise Therapeutic Exercise Minutes (minutes) 10 Therapeutic Exercise: To Restore No changes to home program at Functional Status this time as patient is still 2 weeks post op. Patient to bring up her seroma at MD visit later today. Answered patients questions as to returning to yoga and lifting her horse saddle for riding. Reinforced to patient that strengthening is not advised until 6 week karina. As well as importance of not overdoing it with activity right now due to her swelling/seroma. Treatment Minutes Untimed Code Treatment Minutes 16 Timed Code Treatment Minutes 10 Total Treatment Time 26 Billing Units Therapeutic Exercise Units 1 Assessment/Impression Assessment/Impression Patient returns to PT for post -operative evaluation to compare baseline pre-operative measurements to her current condition, in addition to assessing for post-operative impairments that will benefit from continuation of skilled care. At this time patient is only 2 weeks out instead of 4 weeks therefore evaluation was limited. She is comfortably able to reach within her precautions to 90 degs. She currently presents with decreased shoulder ROM and swelling in her right breast that will benefit from skilled care, including therapeutic exercise, manual therapy, neuromuscular education, self- care training and HEP training , in order to return her to her prior level of function and comfort. Patient will see her surgeon later today to bring up concerns about her seroma. She will continue with current exercise routine and return to clinic for reassessment at 4 weeks post op. Plan of Care Physical Therapy Goals In 4-6 visits: 1. Restore shoulder AROM, as measured at pre-operative evaluation, after initial recovery period to improve 1 and 2-handed functional activity ability. (This will reduce during radiation therapy inflammatory phase, if needed.) 2. Restore functional scoring using SPADI assessment tool to pre-operative amounts to ensure full return to baseline function. 3. Restore full upright posture per patient perception or compared to pre-operative findings. Daily Plan of Care Continue per POC Daily Plan of Care Comments assess ROM MT (scar mobility and tissue) recheck seroma/swelling Recertification Information Initial Certification Date 06/06/23 Recertification Start Date 07/13/23 Recertification Due Date 10/11/23 Provider Signature Shows Agreement With POC & Medical Necessity Physician Comment/Change Comment or Changes Physician NPI Number #
--- NOTE | 2023-11-01 10:31 | OT.OPLDN2 ---
[place] Outpatient Lymphedema Daily Note [place] Outpatient Lymphedema Daily Note* Start: 06/08/23 14:15 Freq: Status: Active Protocol: Document 11/01/23 07:26 AMB (Rec: 11/01/23 10:30 AMB [id number]) E-signed By Margaret Benavidez, OTR/L, CLT, MATRIX BATH OPERATOR Type of Note Type of Note Type of Note Daily Note,Recert/Progress Note Visit Number 4 Insurance Information Insurance Information Insurance Information Medicare B OT OP Lymphedema Daily/Progress Note Current Condition/Medical Diagnosis Referring Provider Dr Lupe Arias Date Of Onset Right breast lumpectomy with SLND 06/28/23 Medical History Medical History Cancer Treatment/Surgery,HTN, Asthma/Respiratory Disorder Medical History Comments Patient underwent a routine mammogram in April of 2023. Mammogram noted a suspicious spot in the right breast. An ultrasound was obtained that showed 4 x 6 mm hypoechoic nodule in the right breast at 1:00 7 cm from the nipple. This was subsequently biopsied on 05/25/2023. Biopsy came back as invasive ductal carcinoma, grade 2 of 3, no angiolymphatic invasion and no associated DCIS, ER/IA negative and HER2 negative. Other PMH (copied from oncology chart): PFSH Active Problems (Updated 06/01 @ 12:08 by Lupe Arias MD) Invasive ductal carcinoma of breast (Acute) C50.919 - Malignant neoplasm of unspecified site of unspecified female breast (ICD -10) Dyslipidemia (Chronic) E78.5 - Hyperlipidemia, unspecified (ICD-10) Bradycardia (Chronic 2016) junctional rhythm in am, no Tx , did see cardiology.(04/2020) R00.1 - Bradycardia, unspecified (ICD-10) Colon polyp (Acute) 2012, sessile K63.5 - Polyp of colon (ICD-10 ) White coat syndrome with diagnosis of hypertension ( Chronic) I10 - Essential (primary) hypertension (ICD-10) Osteopenia (Chronic) lumbar compression fx 2019, dislocated jaw from fosamax M85.80 - Other specified disorders of bone density and structure, unspecified site ( ICD-10) Osteoarthritis of carpometacarpal (CMC) joints of both thumbs (Chronic) did get braces from [facility] in [place] M18.0 - Bilateral primary osteoarthritis of first carpometacarpal joints (ICD-10 ) Osteoarthritis of both thumbs (Acute ~2017) M18.0 - Bilateral primary osteoarthritis of first carpometacarpal joints (ICD-10 ) Medical History (Reviewed @ 11:53 by Lupe Arias MD) Hypertension I10 - Essential (primary) hypertension (ICD-10) Dyslipidemia E78.5 - Hyperlipidemia, unspecified (ICD-10) Bradycardia (2017) R00.1 - Bradycardia, unspecified (ICD-10) Pneumonitis J18.9 - Pneumonia, unspecified organism (ICD-10) History of benign breast biopsy (2004) Z98.890 - Other specified postprocedural states (ICD-10) Diverticulosis of intestine K57.90 - Diverticulosis of intestine, part unspecified, without perforation or abscess without bleeding (ICD-10) Compression fracture of lumbar vertebra S32.000A - Wedge compression fracture of unspecified lumbar vertebra, initial encounter for closed fracture (ICD-10) Asthma (07/12/12) J45.909 - Unspecified asthma, uncomplicated (ICD-10) Surgical History Surgical History Surgical History (Reviewed @ 11:53 by Lupe Arias MD) History of colon polyps (~2012 ) Z86.010 - Personal history of colonic polyps (ICD-10) Status post abdominal hysterectomy (1971) Z90.710 - Acquired absence of both cervix and uterus (ICD-10 ) History of cataract extraction (2019) Z98.49 - Cataract extraction status, unspecified eye (ICD- 10) History of abdominal hysterectomy (07/12/12) Z90.710 - Acquired absence of both cervix and uterus (ICD-10 ) Medications Medications (copied from oncology chart) [alguecal plus PO QDAY] cinnamon bark (Cinnamon) 500 mg PO QDAY coenzyme Q10 125 mg PO QDAY collagen (bovine) 100% 1 applic topical Q24H ferrous sulfate (Feosol) 325 mg PO QDAY melatonin 10 mg PO .Bedtime as needed PRN milk thistle 1,000 mg PO QDAY omega-3 fatty acids 1,000 mg PO QDAY rosuvastatin 5 mg PO QDAY [strontium 680 mg PO DAILY] [Tumeric 1,600 mg PO QDAY] Family History Family History of Lymphedema No Current Work Status Current Work Status Comments 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 Subjective Subjective Pt feels she is doing well, she finished her radiation today and states she has done surprisingly well throughout, really feels she has been fortunate to have very few side effects with any of her cancer related procedures / treatments. Pt has been faithful with using lotion in the radiation field and massages her scars, working on all of her exercises. She also stays very active outdoors, has a large garden and actually builds most of her own garden art. Pt denies any concerns regarding lymphedema. Living Situation Current Living Situation Home With Spouse Or SO Patient Difficulties Patient Difficulties Comments No difficulties Problem List Problem List Limited Knowledge of Lymphedema Treatment/Condition /Precautions,Limited Knowledge of Skin Care & Infection Precautions,Significant Risk For Infection For Lymphedema Related Complications,Does Not Have a HEP Exercise History Does Patient Exercise Regularly Yes Exercise Comments Walks at least 7-10,000 steps daily, does 30 minutes of Yoga daily, very active outdoors on their acreage and taking care of her horse. Pain Pain No ROM/Strength ROM/Strength Comments Pt is working with PT, now has full, pain-free AROM of her shoulder. Compression History Does Patient Currently Wear Compression No During Daytime Does Patient Currently Wear Compression No At Night Current Swelling (Location/Pitting/Texture) Pitting Scale: 0 = No pitting 1+ Tissue returns to normal almost immediately 2+ Tissue returns after 15-30 seconds 3+ Tissue returns after 1-1/2 minutes 4+ Tissue returns after 2-3 minutes N/A Tissue no longer pits due to induration Tissue texture: Soft or indurated Clinical Presentation Area Right upper quadrant will be at risk for lymphedema. Skin Changes Comments Incisional areas are well healed, no adhesions. Skin is very mild with XRT dermatitis , no opened areas, no s/s of infection, very mild warmth, all of this is expected at this stage of XRT, pt understands. Circumferential Measurements Upper Extremity Left Upper Extremity MCP (in cm) 19.0 Palm (in cm) 19.5 Smallest Wrist Measurement (in cm) 15.8 10 cm Above Smallest Wrist Measurement 19.0 20 cm Above Smallest Wrist Measurement 22.8 30 cm Above Smallest Wrist Measurement 24.0 40 cm Above Smallest Wrist Measurement 27.0 Total Girth in cm 147.1 UE Volume C 241.60 UE Volume D 348.56 UE Volume E 435.83 UE Volume F 518.04 Upper Extremity Volume Total in cm 1,544.03 Right Upper Extremity MCP (in cm) 20.0 Palm (in cm) 20.0 Smallest Wrist Measurement (in cm) 15.5 10 cm Above Smallest Wrist Measurement 20.5 20 cm Above Smallest Wrist Measurement 23.5 30 cm Above Smallest Wrist Measurement 24.4 40 cm Above Smallest Wrist Measurement 27.8 Total Girth in cm 151.7 UE Volume C 259.48 UE Volume D 385.75 UE Volume E 456.51 UE Volume F 542.85 Upper Extremity Volume Total in cm 1,644.59 Treatment Self-Care/Home Management Minutes ( 20 minutes) Self-Care/Home Management Comments Provided review of patient education regarding the lymphatic system, s/s of lymphedema, treatment options for lymphedema, implications of untreated lymphedema, infection and it's correlation to lymphedema as well as implications of untreated infection. Discussed risk reduction practices including skin care and monitoring strategies. Encouraged pt to continue with her current exercise routine and healthy habits. Reviewed sxs of infection and specific areas that are at risk for the development of lymphedema. Total Occupational Therapy Minutes 20 Assessment Assessment Pt is doing exceptionally well . She has no s/s of lymphedema or any type of infection. Skin displays very mild XRT dermatitis. Pt remains very active and motivated to continue with lymphedema surveillance program with re-assessment in 3 months. Patient Goals Patient Goals 1. Pt will demonstrate a general understanding of the lymphatic system, s/s of lymphedema, treatment of lymphedema, implications of untreated lymphedema, s/s of infection and the correlation of infection related to lymphedema. 3 months 2. Pt will be compliant with quarterly assessments for lymphedema surveillance in order to obtain early intervention with best outcomes if needed. 12 months Treatment Plan Treatment Plan Evaluation,Edema Control,Joint Mobilization,Manual Therapy, Wound Care/Scar Management, Therapeutic Exercise, Therapeutic Activities,Self- Care/Home Management,Education Other Treatment Plan 1 visit 4 weeks p/o, then quarterly x 12 months or prn if concerns arise. Occupational Therapy Billing Units Treatment Minutes Timed Treatment Minutes 20 Total Treatment Minutes 20 Billing Units Self Care/Home Management 1 Certification Statement Certification Statement I Certify That: Therapy Services Provided, Therapy Plan Established, Therapy Plan Reviewed Recertification Information Recertification Information Initial Certification Date 06/08/23 Recertification Start Date 09/06/23 Recertification Due Date 12/07/23 Reasons to Continue Skilled Therapy Pt is participating in a lymphedema surveillance program and will benefit from continued surveillance to provide early intervention and treatment in the event that she develops lymphedema in order to achieve best outcomes as well as continued pt education on risk reduction practices. Rehabilitation Potential Good Click To Default 'Per treatment plan' Per treatment plan Continued Plan of Care and Interventions Per treatment plan Provider Signature Required Yes Provider Signature Shows Agreement With POC & Medical Necessity Physician NPI Number Write NPI# Here Physician Comment/Change Comment or Changes Physician Signature & Date Requested Please Sign/Date Here
--- NOTE | 2023-11-16 10:32 | PT.OPDNX ---
PT [facility] Outpatient Daily Note PT [facility] Outpatient Daily Note Start: 06/06/23 07:44 Freq: Status: Active Protocol: Document 11/16/23 07:50 ENM (Rec: 11/16/23 09:58 ENM [id number]) E-signed By Mona Sam DPT PT OP Daily Progress Note Visit Information Note Type Recert/Progress Note Visit Number 5 Insurance Information Recert Due Date 02/14/24 Insurance Name Medicare B Medical Diagnosis right breast lumpectomy with SLND 06/28/23 Treating Diagnosis decreased shoulder ROM, swelling in right breast Referring MD Arias Subjective Subjective Patient states that she didn't have much issues with chemo and radiation. Chemo finished September 25. Radiation finished two weeks ago. Has been doing her exercises regularly. Denies any neuropathy sx but doesn't feel as steady on her feet in the garden. Pain Comments none Home Exercise Home Exercise Comments Access Code: [email or web address] URL: [email or web address] Date: 08/03/2023 Prepared by: Mona Sam Exercises - Supine Shoulder Flexion AAROM - 3 x daily - 7 x weekly - 10 reps - 5 seconds hold - Supine Chest Stretch with Elbows Bent - 3 x daily - 7 x weekly - 10 reps - 5 seconds hold - Standing Shoulder Flexion Full Range - 3 x daily - 7 x weekly - 10 reps - 5 seconds hold - Standing Bilateral Low Shoulder Row with Anchored Resistance - 1 x daily - 5-7 x weekly - 3 sets - 10 reps - Shoulder External Rotation and Scapular Retraction with Resistance - 1 x daily - 5-7 x weekly - 3 sets - 10 reps - Scaption with Dumbbells - 1 x daily - 5-7 x weekly - 3 sets - 10 reps Objective Other/Pertinent Objective AROM standing: Shoulder flexion L 158 R 159 abduction L 164 R 168 Normal mobility B with abd/ER behind the head pinkness present throughout right breast consistent with s /p radiation. Minimal tissue tension felt throughout chest, axilla, breast of radiation treatment area Functional Test Performed & Score Post op SPADI pain disability Pre op SPADI: pain 0 disability 0 Patient Instructed in Risks/Benefits Yes Therapeutic Exercise Therapeutic Exercise Minutes (minutes) 33 Therapeutic Exercise: To Restore -Reassessment of obj measures Functional Status Reviewed ACSM guidelines answering her questions about necessary intensity. Answered questions about her balance as she works on SLS daily but is worried her balance may worsen after chemo. Encouraged her to try SLS on a yoga caro or something unsteady to further challenge her balance for stability in the garden. Issued GTB for progression of HEP. Treatment Minutes Timed Code Treatment Minutes 33 Total Treatment Time 33 Billing Units Therapeutic Exercise Units 2 Assessment/Impression Assessment/Impression Patient returns to PT for follow up after right lumpectomy surgery after completing chemo and two weeks after radiation. She has no new concerns since last session. Her ROM has stayed consistent. Her skin is healing well and there is no significant tissue tension present after radiation. Reviewed her HEP and issued GTB for progressions. Reinforced that radiation changes can still occur for months after with patient reporting understanding. At this time Starla has met all goals for PT. Will put PT on hold x1 month for her to return with any questions/ concerns, after this time frame she will be d/c. Plan of Care Physical Therapy Goals In 4-6 visits: 1. Restore shoulder AROM, as measured at pre-operative evaluation, after initial recovery period to improve 1 and 2-handed functional activity ability. (This will reduce during radiation therapy inflammatory phase, if needed.) MET 2. Restore functional scoring using SPADI assessment tool to pre-operative amounts to ensure full return to baseline function. MET 3. Restore full upright posture per patient perception or compared to pre-operative findings. MET Daily Plan of Care Continue per POC Recertification Information Initial Certification Date 07/13/23 Recertification Start Date 11/16/23 Recertification Due Date 02/14/24 Reasons to Continue Skilled Therapy No further PT indicated at this time as patient is feeling back to baseline. If she were to have any significant fibrotic changes from radiation in this next month than she may benefit from 3-4 visits for manual therapy to help address this. Rehabilitation Potential good Continued Plan of Care and Interventions Manual therapy to help address tissue changes after radiation. Provider Signature Shows Agreement With POC & Medical Necessity Physician Comment/Change Comment or Changes Physician NPI Number #
--- NOTE | 2024-01-31 12:03 | OT.OPLDN2 ---
[facility] Outpatient Lymphedema Daily Note [facility] Outpatient Lymphedema Daily Note* Start: 06/08/23 14:15 Freq: Status: Active Protocol: Document 01/31/24 09:29 AMB (Rec: 01/31/24 11:47 AMB [id number]) E-signed By Margaret Benavidez, OTR/L, CLT, [employer] Type of Note Type of Note Type of Note Daily Note,Recert/Progress Note Visit Number 5 Insurance Information Insurance Information Insurance Information Medicare B OT OP Lymphedema Daily/Progress Note Current Condition/Medical Diagnosis Referring Provider Dr Lupe Arias Date Of Onset Right breast lumpectomy with SLND 06/28/23 Medical History Medical History Cancer Treatment/Surgery,HTN, Asthma/Respiratory Disorder Medical History Comments Patient underwent a routine mammogram in April of 2023. Mammogram noted a suspicious spot in the right breast. An ultrasound was obtained that showed 4 x 6 mm hypoechoic nodule in the right breast at 1:00 7 cm from the nipple. This was subsequently biopsied on 05/25/2023. Biopsy came back as invasive ductal carcinoma, grade 2 of 3, no angiolymphatic invasion and no associated DCIS, ER/HI negative and HER2 negative. Other PMH (copied from oncology chart): PFSH Active Problems (Updated 06/01 @ 12:08 by Lupe Arias MD) Invasive ductal carcinoma of breast (Acute) C50.919 - Malignant neoplasm of unspecified site of unspecified female breast (ICD -10) Dyslipidemia (Chronic) E78.5 - Hyperlipidemia, unspecified (ICD-10) Bradycardia (Chronic 2016) junctional rhythm in am, no Tx , did see cardiology.(04/2020) R00.1 - Bradycardia, unspecified (ICD-10) Colon polyp (Acute) 2012, sessile K63.5 - Polyp of colon (ICD-10 ) White coat syndrome with diagnosis of hypertension ( Chronic) I10 - Essential (primary) hypertension (ICD-10) Osteopenia (Chronic) lumbar compression fx 2019, dislocated jaw from fosamax M85.80 - Other specified disorders of bone density and structure, unspecified site ( ICD-10) Osteoarthritis of carpometacarpal (CMC) joints of both thumbs (Chronic) did get braces from [facility] in [place] M18.0 - Bilateral primary osteoarthritis of first carpometacarpal joints (ICD-10 ) Osteoarthritis of both thumbs (Acute ~2017) M18.0 - Bilateral primary osteoarthritis of first carpometacarpal joints (ICD-10 ) Medical History (Reviewed @ 11:53 by Lupe Arias MD) Hypertension I10 - Essential (primary) hypertension (ICD-10) Dyslipidemia E78.5 - Hyperlipidemia, unspecified (ICD-10) Bradycardia (2017) R00.1 - Bradycardia, unspecified (ICD-10) Pneumonitis J18.9 - Pneumonia, unspecified organism (ICD-10) History of benign breast biopsy (2004) Z98.890 - Other specified postprocedural states (ICD-10) Diverticulosis of intestine K57.90 - Diverticulosis of intestine, part unspecified, without perforation or abscess without bleeding (ICD-10) Compression fracture of lumbar vertebra S32.000A - Wedge compression fracture of unspecified lumbar vertebra, initial encounter for closed fracture (ICD-10) Asthma (07/12/12) J45.909 - Unspecified asthma, uncomplicated (ICD-10) Surgical History Surgical History Surgical History (Reviewed @ 11:53 by Lupe Arias MD) History of colon polyps (~2012 ) Z86.010 - Personal history of colonic polyps (ICD-10) Status post abdominal hysterectomy (1971) Z90.710 - Acquired absence of both cervix and uterus (ICD-10 ) History of cataract extraction (2019) Z98.49 - Cataract extraction status, unspecified eye (ICD- 10) History of abdominal hysterectomy (07/12/12) Z90.710 - Acquired absence of both cervix and uterus (ICD-10 ) Medications Medications (copied from oncology chart) [alguecal plus PO QDAY] cinnamon bark (Cinnamon) 500 mg PO QDAY coenzyme Q10 125 mg PO QDAY collagen (bovine) 100% 1 applic topical Q24H ferrous sulfate (Feosol) 325 mg PO QDAY melatonin 10 mg PO .Bedtime as needed PRN milk thistle 1,000 mg PO QDAY omega-3 fatty acids 1,000 mg PO QDAY rosuvastatin 5 mg PO QDAY [strontium 680 mg PO DAILY] [Tumeric 1,600 mg PO QDAY] Family History Family History of Lymphedema No Current Work Status Current Work Status Comments 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 Subjective Subjective Pt has been doing well, she has been very active working on cleaning her gardens for the fall / winter. Pt has not noticed any swelling but has noticed that her right breast tissue feels thicker than the left and she has had more tightness in the anterior shoulder / chest. Living Situation Current Living Situation Home With Spouse Or SO Patient Difficulties Patient Difficulties Comments No difficulties Problem List Problem List Limited Knowledge of Lymphedema Treatment/Condition /Precautions,Limited Knowledge of Skin Care & Infection Precautions,Significant Risk For Infection For Lymphedema Related Complications,Does Not Have a HEP Exercise History Does Patient Exercise Regularly Yes Exercise Comments Walks at least 7-10,000 steps daily, does 30 minutes of Yoga daily, very active outdoors on their acreage and taking care of her horse. Pain Pain No ROM/Strength ROM/Strength Comments Pt is working with PT, now has full, pain-free AROM of her shoulder. Compression History Does Patient Currently Wear Compression No During Daytime Does Patient Currently Wear Compression No At Night Current Swelling (Location/Pitting/Texture) Pitting Scale: 0 = No pitting 1+ Tissue returns to normal almost immediately 2+ Tissue returns after 15-30 seconds 3+ Tissue returns after 1-1/2 minutes 4+ Tissue returns after 2-3 minutes N/A Tissue no longer pits due to induration Tissue texture: Soft or indurated Clinical Presentation Area Right upper quadrant will be at risk for lymphedema. Skin Changes Comments Incisional areas are well healed, no adhesions. Skin is very mild with XRT dermatitis , no opened areas, no s/s of infection, very mild warmth, all of this is expected at this stage of XRT, pt understands. Circumferential Measurements Upper Extremity Left Upper Extremity MCP (in cm) 19.0 Palm (in cm) 19.5 Smallest Wrist Measurement (in cm) 15.8 10 cm Above Smallest Wrist Measurement 19.0 20 cm Above Smallest Wrist Measurement 22.8 30 cm Above Smallest Wrist Measurement 24.0 40 cm Above Smallest Wrist Measurement 27.0 Total Girth in cm 147.1 UE Volume C 241.60 UE Volume D 348.56 UE Volume E 435.83 UE Volume F 518.04 Upper Extremity Volume Total in cm 1,544.03 Right Upper Extremity MCP (in cm) 19.6 Palm (in cm) 19.5 Smallest Wrist Measurement (in cm) 15.5 10 cm Above Smallest Wrist Measurement 19.5 20 cm Above Smallest Wrist Measurement 23.5 30 cm Above Smallest Wrist Measurement 23.8 40 cm Above Smallest Wrist Measurement 27.8 Total Girth in cm 149.2 UE Volume C 244.76 UE Volume D 368.90 UE Volume E 445.10 UE Volume F 530.76 Upper Extremity Volume Total in cm 1,589.52 Treatment Therapeutic Exercise Minutes (minutes) 12 Therapeutic Exercise Comments Provided review of HEP with addition of training and practice in unilateral pec stretch in doorway. Following demo, pt is able to complete new stretch with minimal cues. Pt able to complete previous stretches without cues, encouraged to continue with stretches related to anterior shoulder and chest / pec. Also encouraged to continue with daily scar mobs to right breast incision and lotion with massage to full breast to soften fibrotic tissue and improve lymph flow. Self-Care/Home Management Minutes ( 20 minutes) Self-Care/Home Management Comments Provided review of patient education regarding the lymphatic system, s/s of lymphedema, treatment options for lymphedema, implications of untreated lymphedema, infection and it's correlation to lymphedema as well as implications of untreated infection. Discussed risk reduction practices including skin care and monitoring strategies. Encouraged pt to continue with her current exercise routine and healthy habits. Reviewed sxs of infection and specific areas that are at risk for the development of lymphedema. Total Occupational Therapy Minutes 32 Assessment Assessment Pt is doing well, experiencing new, but normal side effects from her XRT with tightness in anterior shoulder and chest wall and thickening / fibrosis of breast tissue (mild). Pt does not demonstrate any loss of shoulder motion, just tightness at EROM of flexion. Measurements are down slightly , pt states she has lost some weight with being very busy and working a lot in her garden. Patient Goals Patient Goals 1. Pt will demonstrate a general understanding of the lymphatic system, s/s of lymphedema, treatment of lymphedema, implications of untreated lymphedema, s/s of infection and the correlation of infection related to lymphedema. 3 months 2. Pt will be compliant with quarterly assessments for lymphedema surveillance in order to obtain early intervention with best outcomes if needed. 12 months Treatment Plan Treatment Plan Evaluation,Edema Control,Joint Mobilization,Manual Therapy, Wound Care/Scar Management, Therapeutic Exercise, Therapeutic Activities,Self- Care/Home Management,Education Other Treatment Plan 1 visit 4 weeks p/o, then quarterly x 12 months or prn if concerns arise. Occupational Therapy Billing Units Treatment Minutes Timed Treatment Minutes 32 Total Treatment Minutes 32 Billing Units Self Care/Home Management 1 Therapeutic Exercise 1 Certification Statement Certification Statement I Certify That: Therapy Services Provided, Therapy Plan Established, Therapy Plan Reviewed Recertification Information Recertification Information Initial Certification Date 06/08/23 Recertification Start Date 12/07/23 Recertification Due Date 03/07/24 Reasons to Continue Skilled Therapy Pt is participating in a lymphedema surveillance program and will benefit from continued surveillance to provide early intervention and treatment in the event that she develops lymphedema in order to achieve best outcomes as well as continued pt education on risk reduction practices. [ End ] Click To Default 'Per treatment plan' Per treatment plan Continued Plan of Care and Interventions Per treatment plan Provider Signature Required Yes Provider Signature Shows Agreement With POC & Medical Necessity Physician NPI Number Write NPI# Here Physician Comment/Change Comment or Changes Physician Signature & Date Requested Please Sign/Date Here
--- NOTE | 2024-05-01 18:36 | OT.OPLDN2 ---
OT Outpatient Lymphedema Daily Note OT Outpatient Lymphedema Daily Note* Start: 06/08/23 14:15 Freq: Status: Active Protocol: Document 05/01/24 10:20 AMB (Rec: 05/01/24 18:35 AMB [id number]) E-signed By Margaret Benavidez, OTR/L, CLT, DIRECTOR [facility] Type of Note Type of Note Type of Note Daily Note,Discharge Note, Recert/Progress Note Visit Number [id number] Insurance Information Insurance Information Insurance Information Medicare B OT OP Lymphedema Daily/Progress Note Current Condition/Medical Diagnosis Referring Provider Dr Lupe Arias Date Of Onset Right breast lumpectomy with SLND 06/28/23 Medical History Medical History Cancer Treatment/Surgery,HTN, Asthma/Respiratory Disorder Medical History Comments Patient underwent a routine mammogram in April of 2023. Mammogram noted a suspicious spot in the right breast. An ultrasound was obtained that showed 4 x 6 mm hypoechoic nodule in the right breast at 1:00 7 cm from the nipple. This was subsequently biopsied on 05/25/2023. Biopsy came back as invasive ductal carcinoma, grade 2 of 3, no angiolymphatic invasion and no associated DCIS, ER/CO negative and HER2 negative. Other PMH (copied from oncology chart): PFSH Active Problems (Updated 06/01 @ 12:08 by Lupe Arias MD) Invasive ductal carcinoma of breast (Acute) C50.919 - Malignant neoplasm of unspecified site of unspecified female breast (ICD -10) Dyslipidemia (Chronic) E78.5 - Hyperlipidemia, unspecified (ICD-10) Bradycardia (Chronic 2016) junctional rhythm in am, no Tx , did see cardiology.(04/2020) R00.1 - Bradycardia, unspecified (ICD-10) Colon polyp (Acute) 2012, sessile K63.5 - Polyp of colon (ICD-10 ) White coat syndrome with diagnosis of hypertension ( Chronic) I10 - Essential (primary) hypertension (ICD-10) Osteopenia (Chronic) lumbar compression fx 2019, dislocated jaw from fosamax M85.80 - Other specified disorders of bone density and structure, unspecified site ( ICD-10) Osteoarthritis of carpometacarpal (CMC) joints of both thumbs (Chronic) did get braces from [facility] [place] M18.0 - Bilateral primary osteoarthritis of first carpometacarpal joints (ICD-10 ) Osteoarthritis of both thumbs (Acute ~2017) M18.0 - Bilateral primary osteoarthritis of first carpometacarpal joints (ICD-10 ) Medical History (Reviewed @ 11:53 by Lupe Arias MD) Hypertension I10 - Essential (primary) hypertension (ICD-10) Dyslipidemia E78.5 - Hyperlipidemia, unspecified (ICD-10) Bradycardia (2017) R00.1 - Bradycardia, unspecified (ICD-10) Pneumonitis J18.9 - Pneumonia, unspecified organism (ICD-10) History of benign breast biopsy (2004) Z98.890 - Other specified postprocedural states (ICD-10) Diverticulosis of intestine K57.90 - Diverticulosis of intestine, part unspecified, without perforation or abscess without bleeding (ICD-10) Compression fracture of lumbar vertebra S32.000A - Wedge compression fracture of unspecified lumbar vertebra, initial encounter for closed fracture (ICD-10) Asthma (07/12/12) J45.909 - Unspecified asthma, uncomplicated (ICD-10) Surgical History Surgical History Surgical History (Reviewed @ 11:53 by Lupe Arias MD) History of colon polyps (~2012 ) Z86.010 - Personal history of colonic polyps (ICD-10) Status post abdominal hysterectomy (1971) Z90.710 - Acquired absence of both cervix and uterus (ICD-10 ) History of cataract extraction (2019) Z98.49 - Cataract extraction status, unspecified eye (ICD- 10) History of abdominal hysterectomy (07/12/12) Z90.710 - Acquired absence of both cervix and uterus (ICD-10 ) Medications Medications (copied from oncology chart) [alguecal plus PO QDAY] cinnamon bark (Cinnamon) 500 mg PO QDAY coenzyme Q10 125 mg PO QDAY collagen (bovine) 100% 1 applic topical Q24H ferrous sulfate (Feosol) 325 mg PO QDAY melatonin 10 mg PO .Bedtime as needed PRN milk thistle 1,000 mg PO QDAY omega-3 fatty acids 1,000 mg PO QDAY rosuvastatin 5 mg PO QDAY [strontium 680 mg PO DAILY] [Tumeric 1,600 mg PO QDAY] Family History Family History of Lymphedema No Current Work Status Current Work Status Comments 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 Subjective Subjective Pt states she has been doing well, pleased with how her cancer journey has gone. Pt continues to work on improving her lifestyle and reducing risk for recurrence. Pt no longer drinks any alcohol, she has increased her activity level, trying to eat more plant based and is really conscious of any other risk reduction practices she has learned. Pt has not noticed any concerns for lymphedema, no abnormal swelling and not pain. Pt does have questions regarding compression sleeves, feels she would like to have one just in case she needs it. Pt was provided with information from the [employer] in case she decides to go ahead and order one, wants to think about it. Inst to notify contract writer if she needs further assistance with this. Living Situation Current Living Situation Home With Spouse Or SO Patient Difficulties Patient Difficulties Comments No difficulties Problem List Problem List Limited Knowledge of Lymphedema Treatment/Condition /Precautions,Limited Knowledge of Skin Care & Infection Precautions,Significant Risk For Infection For Lymphedema Related Complications,Does Not Have a HEP Exercise History Does Patient Exercise Regularly Yes Exercise Comments Walks at least 7-10,000 steps daily, does 30 minutes of Yoga daily, very active outdoors on their acreage and taking care of her horse. Pain Pain No ROM/Strength ROM/Strength Comments Pt is working with PT, now has full, pain-free AROM of her shoulder. Compression History Does Patient Currently Wear Compression No During Daytime Does Patient Currently Wear Compression No At Night Current Swelling (Location/Pitting/Texture) Pitting Scale: 0 = No pitting 1+ Tissue returns to normal almost immediately 2+ Tissue returns after 15-30 seconds 3+ Tissue returns after 1-1/2 minutes 4+ Tissue returns after 2-3 minutes N/A Tissue no longer pits due to induration Tissue texture: Soft or indurated Clinical Presentation Area Right upper quadrant will be at risk for lymphedema. Skin Changes Comments Incisional areas are well healed, no adhesions. Skin is very mild with XRT dermatitis , no opened areas, no s/s of infection, very mild warmth, all of this is expected at this stage of XRT, pt understands. Circumferential Measurements Upper Extremity Left Upper Extremity MCP (in cm) 19.0 Palm (in cm) 19.5 Smallest Wrist Measurement (in cm) 15.8 10 cm Above Smallest Wrist Measurement 19.0 20 cm Above Smallest Wrist Measurement 22.8 30 cm Above Smallest Wrist Measurement 24.0 40 cm Above Smallest Wrist Measurement 27.0 Total Girth in cm 147.1 Upper Extremity Volume Total in cm 1,544.03 Right Upper Extremity MCP (in cm) 19.7 Palm (in cm) 19.5 Smallest Wrist Measurement (in cm) 15.5 10 cm Above Smallest Wrist Measurement 19.5 20 cm Above Smallest Wrist Measurement 23.3 30 cm Above Smallest Wrist Measurement 24.0 40 cm Above Smallest Wrist Measurement 27.6 Total Girth in cm 149.1 Upper Extremity Volume Total in cm 1,589.52 Treatment Therapeutic Activity Minutes (minutes) 17 Therapeutic Activity Comments Completed final measurements, skin assessment and ROM/ strength of BUE. Pt was provided with instructions to measure her arm as well as as tracking grid that she can use for self surveillance. Self-Care/Home Management Minutes ( 20 minutes) Self-Care/Home Management Comments Provided information regarding compression garments for the UE as well as providing a reputable website for ordering in case pt decides to order one prophylactically. She had requested this. Also provided review of patient education regarding the lymphatic system , s/s of lymphedema, treatment options for lymphedema, implications of untreated lymphedema, infection and it's correlation to lymphedema as well as implications of untreated infection. Discussed risk reduction practices including skin care and monitoring strategies. Encouraged pt to continue with her current exercise routine and healthy habits. Reviewed sxs of infection and specific areas that are at risk for the development of lymphedema. Total Occupational Therapy Minutes 37 Assessment Assessment Pt demonstrates full AROM and strength throughout BUE. Current measurements do not indicate any concerns for lymphedema at this time. Pt has been consistent and compliant with clinic visits and recommendations and has been very motivated throughout her episode of care. Pt will discharge to independent monitoring. Patient Goals Patient Goals 1. Pt will demonstrate a general understanding of the lymphatic system, s/s of lymphedema, treatment of lymphedema, implications of untreated lymphedema, s/s of infection and the correlation of infection related to lymphedema. 3 months 2. Pt will be compliant with quarterly assessments for lymphedema surveillance in order to obtain early intervention with best outcomes if needed. 12 months Treatment Plan Treatment Plan Evaluation,Edema Control,Joint Mobilization,Manual Therapy, Wound Care/Scar Management, Therapeutic Exercise, Therapeutic Activities,Self- Care/Home Management,Education Other Treatment Plan 1 visit 4 weeks p/o, then quarterly x 12 months or prn if concerns arise. Occupational Therapy Billing Units Treatment Minutes Timed Treatment Minutes 37 Total Treatment Minutes 37 Billing Units Self Care/Home Management 1 Therapeutic Exercise 1 Certification Statement Certification Statement I Certify That: Therapy Services Provided, Therapy Plan Established, Therapy Plan Reviewed Recertification Information Recertification Information Initial Certification Date 06/08/23 Recertification Start Date 03/07/24 Recertification Due Date 05/02/24 Reasons to Continue Skilled Therapy Pt is participating in a lymphedema surveillance program and will benefit from continued surveillance to provide early intervention and treatment in the event that she develops lymphedema in order to achieve best outcomes as well as continued pt education on risk reduction practices. Pt has one visit for clinic surveillance and then will continue on her own unless her lymphedema status changes. [ End ] Click To Default 'Per treatment plan' Per treatment plan Continued Plan of Care and Interventions Per treatment plan Provider Signature Required Yes Provider Signature Shows Agreement With POC & Medical Necessity Physician NPI Number Write NPI# Here Physician Comment/Change Comment or Changes Physician Signature & Date Requested Please Sign/Date Here
== END 2024-05-02 10:24 | disposition home or self-care (01) ==
PROVIDERS: PCP Family Medicine; Visit Provider Surgery
DX: C50.911 Malignant neoplasm of unspecified site of right female breast (principal); Z51.89 Encounter for other specified aftercare
CPT/HCPCS: 97110; 97140; 97161; 97164; 97165; 97535; X5282

== ENCOUNTER 2024-05-14 09:59 | Outpatient (CLI) | payer MEDICARE, SELFPAY ==
--- NOTE | 2024-05-14 10:15 | CRLHL7_ITS ---
For Patients: As a result of the Century Cures Act, medical imaging exams and procedure reports are released immediately into your electronic medical record. You may view this report before your referring provider. If you have questions, please contact your health care provider. BILATERAL SCREENING MAMMOGRAM WITH COMPUTER-AIDED DETECTION AND TOMOSYNTHESIS TECHNIQUE: CC and MLO views were obtained. These mammographic images have been obtained using full-field digital technique. These mammographic images were interpreted with the benefit of computer-aided detection. Breast Tomosynthesis was used in this interpretation. COMPARISON FILM: 05/11/23, 03/19/22, 02/25/21. FINDINGS: The breasts are heterogeneously dense, which may obscure small masses. IMPRESSION: There is no radiographic evidence for malignancy. ASSESSMENT: BI-RADS Category 2: Benign RECOMMENDATION: Routine screening mammogram in 1 year. A lay language report of this examination will be provided to the patient. Wai Diaz M.D. Diagnostic Radiologist [email or web address] SP/Dictated by: Wia Diaz MD @ 05/14/2024 12:22:00 PM (Electronically Signed)
== END 2024-05-14 10:00 | disposition home or self-care (01) ==
LOC: MAMMO 09:59
PROVIDERS: PCP Family Medicine; Visit Provider Internal Medicine Hematology & Oncology
DX: Z12.31 Encounter for screening mammogram for malignant neoplasm of breast (principal); R92.333 Mammographic heterogeneous density, bilateral breasts
CPT/HCPCS: 77063; 77067

== ENCOUNTER 2024-05-17 09:50 | Outpatient (RCR) | payer MEDICARE, SELFPAY ==
--- NOTE | 2024-03-28 13:43 | ONC.NURNOTE ---
Patient informed that her chest nodule biopsy was negative for malignancy. It is likely an inflammatory cyst. Patient states it is much smaller after the biopsy. Patient denies any questions or concerns.
== END 2024-08-15 23:59 | disposition home or self-care (01) ==
LOC: CCIC 09:50
PROVIDERS: PCP Family Medicine; Referring Provider Family Medicine; Visit Provider Physician Assistant
DX: C50.911 Malignant neoplasm of unspecified site of right female breast (principal); Z17.1 Estrogen receptor negative status [ER-]; R22.2 Localized swelling, mass and lump, trunk
CPT/HCPCS: 99213; 99214; G0463

== ENCOUNTER 2024-11-29 10:30 | Outpatient (RCR) | payer MEDICARE, SELFPAY ==
--- NOTE | 2024-09-26 18:15 | OT.OPLE2 ---
OT Outpatient Lymphedema Eval* OT Outpatient Lymphedema Eval* Start: 09/25/24 17:55 Freq: Status: Active Protocol: Document 09/26/24 07:47 AMB (Rec: 09/26/24 17:33 AMB [id number]) E-signed By Margaret Benavidez, OTR/L, CLT, SANDING MACHINE OPERATOR OR TENDER OT Outpatient Evaluation Details Type Type Eval Complexity Low Insurance Information Insurance Information Insurance Medicare B Information Home Program Home Program Home Program Initiated Home Program Provided training and practice in HEP for resisted BUE Specifics shoulder ER with RTB utilizing scap set technique, resisted BUE shoulder extension with RTB, and doorway pec stretch. Emphasis was placed on postural awareness and strengthening of the periscapular muscles in order to improve posture and reduce impingement of the supraspinatus tendon and improve scapular component of shoulder flexion. Pt was provided with written instructions for use at home as well. OT OP Lymphedema Evaluation Current Condition/Medical Diagnosis Referring Provider Dr Valle Medical Diagnoses C50.911 Malignant neoplasm of unspecified site of right female breast I89.0 Lymphedema Treatment Diagnosis M25.512 Pain in left shoulder M25.612 Stiffness left shoulder R53.1 Weakness LUE shoulder I89.0 Lymphedema LUE. Date Of Onset 07/11/24 Medical Heart Condition,CA,Respiratory,Arthritis,Osteoporosis Contraindications Medical History Medical History Abdominal Surgery,Smoking Medical History Oncology hx (copied from oncology chart): Comments 05/11/2023 mammogram screening consistent with right breast asymmetry/mass. BI-RADS category 0 incomplete assessment. 05/18/2023 mammogram diagnostic consistent with indeterminate solid nodule right breast 4*4*6 mm, BI- RADS 4 05/25/2023 biopsy: Solid hypoechoic nodule measuring 4 *4*6 mm invasive ductal carcinoma measuring 4 mm on core biopsy. Grade 2. ER negative ME negative HER2 negative. 06/14/2023 MRI breast biopsied, clipped right breast cancer measuring 28207 mm, no additional suspicious enhancement. No right axillary or internal mammary chain adenopathy. No suspicious MRI findings in the left breast. BI-RADS category 6. For right breast. 06/28/2023 surgery: Right breast lumpectomy invasive ductal carcinoma size 11 mm, grade 3. ER negative ME negative HER2 negative, margins negative, 0/3 lymph nodes. Pathologic T1c N0 Anatomic staging T1 N0 M0 stage I A Prognostic staging T1 N0 M0 triple negative stage I B 07/06/2023 comes in for medical oncology consultation. Denies any skin changes nipple changes nipple discharge . At the time of diagnosis. Has done intentional 40 lb weight loss last year. Denies any bone pains. Family history is otherwise unremarkable for breast cancer. Her 2nd or 3rd degree relatives/cousin had breast cancer. Menstrual history Menarche at age 12, underwent hysterectomy at age 21 due to fibroid tumor. No . She has an adopted daughter who is currently 47 years of age. Used control pills for approximately 2 years and hormone replacement therapy for less than 1 year. 07/26/23 - 09/26/2023 4 cycles of adjuvant docetaxel 75mg/ m2/cycle, cyclophophamide 600mg/m2/cycle (TC) with pegfigrastim support. 10/19/23-11/01/23: 9 fractions, 3600 cGY Photon Radiation to Right Breast. Hereditary Genetics Testing Referral Date:09/02/23 Location: [facility] Test Name: [employer] Hereditary Breast and Gynecologic Cancers Panel (21 genes) Findings: No actionable mutations. Negative. 02/17/24 Breast Cancer Survivorship Visit at [place]. 03/05/2024 identified hard nodule underlying prior port site upper outer right chest. 03/12/2024 identified a an indeterminate cystic mass and ultrasound-guided biopsy was recommended. 03/26/2024 biopsy was performed and consistent with inflammatory cyst. Benign. Negative for malignancy. 05/14/2024 screening mammogram was negative. Other PMH (copied from chart): Active Problems Invasive ductal carcinoma of breast (Chronic) C50.919 White coat syndrome with diagnosis of hypertension ( Chronic) I10 Dyslipidemia (Chronic) E78.5 Bradycardia (Chronic 2017) R00.1 Colon polyp (Acute) K63.5 Osteopenia (Chronic) M85.80 Osteoarthritis of carpometacarpal (CMC) joints of both thumbs (Chronic) M18.0 Osteoarthritis of both thumbs (Acute ~2017) M18.0 Medical History Invasive ductal carcinoma of breast C50.919 - Malignant neoplasm of unspecified site of unspecified female breast (ICD-10) White coat syndrome with diagnosis of hypertension I10 - Essential (primary) hypertension (ICD-10) Hypertension I10 - Essential (primary) hypertension (ICD-10) Dyslipidemia E78.5 - Hyperlipidemia, unspecified (ICD-10) Bradycardia (2017) R00.1 - Bradycardia, unspecified (ICD-10) Pneumonitis (~2017) J18.9 - Pneumonia, unspecified organism (ICD-10) History of benign breast biopsy (2004) Z98.890 - Other specified postprocedural states (ICD-10 ) Diverticulosis of intestine K57.90 - Diverticulosis of intestine, part unspecified, without perforation or abscess without bleeding (ICD- 10) Compression fracture of lumbar vertebra (~2021) S32.000A - Wedge compression fracture of unspecified lumbar vertebra, initial encounter for closed fracture (ICD-10) Asthma (07/12/12) J45.909 - Unspecified asthma, uncomplicated (ICD-10) Surgical History S/P breast lumpectomy (06/2023) Z98.890 - Other specified postprocedural states (ICD-10 ) Encounter for removal of tunneled central venous catheter (CVC) with port Z45.2 - Encounter for adjustment and management of vascular access device (ICD-10) History of sentinel lymph node dissection Z98.890 - Other specified postprocedural states (ICD-10 ) History of colon polyps (~2012) Z86.010 - Personal history of colonic polyps (ICD-10) Status post abdominal hysterectomy (1971) Z90.710 - Acquired absence of both cervix and uterus ( ICD-10) History of cataract extraction (2019) Z98.49 - Cataract extraction status, unspecified eye ( ICD-10) History of abdominal hysterectomy (07/12/12) Z90.710 - Acquired absence of both cervix and uterus ( ICD-10) Medications Medications Ca Zoo-B5-W-Wfsm-ggpds-tjz bor 250 mg-500 unit -25 mcg tabs PO coenzyme Q10 (Co Q-10) 10 mg PO QDAY melatonin 10 mg PO .Bedtime as needed PRN omega 6-olh-yqs-fish oil 60-90-500 mg (Fish Oil) 1 cap PO QDAY quercetin mg PO DAILY rosuvastatin 5 mg PO .every other day Family History Family History of No Lymphedema Current Work Status Current Work Status Retired Subjective Subjective Pt states she woke up on July 11 and right shoulder was really stiff and sore, denies any injury or trauma. Pt states she's been working on it and it's improving. Pt was worried that it could be lymphedema or frozen shoulder as she knows that her breast cancer hx puts her at risk for both of these. Pt states she's having difficulty getting her saddle on her horse, difficulty reaching into cupboard to retrieve items, pt has achiness at night, sometimes making sleep difficult. Pt has been working with a chiropractor and using a red light therapy pad and a cold laser unit that she uses. Pt states she initially could not raise her arm above her head, this has improved, still tight, pt also notices frequent clicking in her shoulder, mostly with lifting her arm up over her head. Living Situation Current Living Home With Spouse Or SO Situation Patient Difficulties Patient Difficulties Pt states she cannot reach up into the cupboard to Comments retrieve items, she has great difficulty donning her UE clothing, she cannot lift her saddle on her horse without difficulty. 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 Impairments Impairments Loss of Mobility,Difficulties With ADLs Impairments Comments Prior to onset of shoulder pain and stiffness on , pt had full, pain-free use of her LUE, no concerns. Problem List Problem List Presents With Impaired Mobility/ROM Problem List 09/26/24 Pt presents with significant deficits in Comments posture, RUE shoulder ROM, and RUE shoulder strength. Pt has obvious shoulder depression of the right shoulder with periscapular weakness and poor scap control which limits shoulder ROM and contributes to pain. Exercise History Does Patient Yes Exercise Regularly Exercise Comments Pt walks daily, she does resistance training and Yoga. 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 Pain Pain Yes Pain Comments Pt has pain in her right shoulder 3-5/10, aches at night, sharp pain with lifting or raising her arm up. ROM/Strength ROM/Strength 09/26/24 Pt demonstrates full AROM in her LUE throughout Comments her shoulder, elbow, forearm, wrist and hand. Pt demonstrates full AROM of her RUE elbow, forearm, wrist and hand. Pt demonstrates limited AROM of her RUE shoulder as follows: Flexion: 150, limited by weakness and pain, full PROM Extension: to hip, limited by pain External Rotation: 65, limited by weakness and pain Internal Rotation: Full. MMT of LUE is 5/5 throughout. MMT of RUE 5/5 throughout elbow, wrist and hand. Shoulder is 3-/5 throughout, painful with resistance to all motions as well. Previous Treatment Previous Treatment Exercise For Swelling/ Lymphedema Previous Treatment/ Pt performs lymphatic stimulating exs at home. These Current Home Program were given to her during a previous episode of therapy. Compression History Does Patient No Currently Wear Compression During Daytime Does Patient No Currently Wear Compression At Night Current Swelling (Location/Pitting/Texture) Pitting Scale: 0 = No pitting 1+ Tissue returns to normal almost immediately 2+ Tissue returns after 15-30 seconds 3+ Tissue returns after 1-1/2 minutes 4+ Tissue returns after 2-3 minutes N/A Tissue no longer pits due to induration Tissue texture: Soft or indurated Triggering Event & Pt is unsure, states she has been doing a lot of Start Date of painting and gardening, may have caused irritation. Swelling/Lymphedema Positive Stemmer's No Sign Capillary Refill Brisk Swelling Comments 09/26/24 Pt does not show significant s/s of lymphedema, current circumferential measurements were compared to those taken in April of this year and are not significantly different. However, pt is at risk for lymphedema in her right upper quadrant due to her hx of breast cancer with LN removal and radiation. It is possible that pt is having some early or sub-clinical lymphedema and this warrants monitoring along with treatment of her right shoulder stiffness, weakness and pain. Staging Staging Stage 0 Circumferential Measurements Upper Extremity Left Upper Extremity MCP (in cm) 19.0 Palm (in cm) 19.5 Smallest Wrist 15.8 Measurement (in cm) 10 cm Above Smallest 19.2 Wrist Measurement 20 cm Above Smallest 22.8 Wrist Measurement 30 cm Above Smallest 24.2 Wrist Measurement 40 cm Above Smallest 27.4 Wrist Measurement Total Girth in cm 147.9 Right Upper Extremity MCP (in cm) 19.7 Palm (in cm) 19.5 Smallest Wrist 15.5 Measurement (in cm) 10 cm Above Smallest 19.5 Wrist Measurement 20 cm Above Smallest 23.5 Wrist Measurement 30 cm Above Smallest 24.2 Wrist Measurement 40 cm Above Smallest 27.8 Wrist Measurement Total Girth in cm 149.7 Assessment Assessment Pt is a very pleasant, very active 74 yo referred to address RUE shoulder pain, weakness, and limited ROM as well as possible lymphedema in her right upper quadrant. Current assessment and measurements indicate possible sub-clinical or stage 0 lymphedema in her RUE . Provocative testing supports RUE shoulder impingement with positive empty can and positive Tello Jarad. Pt also demonstrates considerable shoulder weakness, limited AROM and pain. Postural changes include mild scapular winging, shoulder depression with periscapular weakness and poor scapular tracking. These impairments limit patients ability to retrieve items from her kitchen cabinets, saddle her horse, hold her RUE up to paint, and she also struggles with sleep due to aching. Pt will benefit from skilled OT intervention to improve posture, RUE shoulder strength and ROM and reduce pain in order to restore PLOF. Patient Goals Patient Goals I want to be able to paint my portraits and saddle my horse without pain Short Term Goals The following goals will be met by 10/26/24: 1. Pt will be independent and compliant with HEP in order to maximize positive outcomes and restore full, pain-free use of her RUE. 2. Pt will demonstrate full, pain-free AROM of her RUE in order to improve her ability to reach into the upper cabinets in her kitchen to retrieve tableware. Student Counsellor Goals The following goals will be met by 12/05/24: 1. The patient will demonstrate at least 4+ muscle grade throughout the RUE shoulder without pain during resistance in order to improve her safety and independence with saddling up her horse. 2. 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 Treatment Plan Treatment Plan Evaluation,Edema Control,Joint Mobilization,Manual Therapy,Ultrasound,Therapeutic Exercise,Therapeutic Activities,Self-Care/Home Management,Education Expected Frequency 1-2x Week Expected Duration 8-10 Weeks Certification Certification Statement I Certify That: Therapy Services Provided,Therapy Plan Established, Therapy Plan Reviewed Certification Information Clinic ID # [id number] Initial 09/26/24 Certification Date Recertification Due 12/25/24 Date Provider Signature Yes Required Provider Signature POC & Medical Necessity Shows Agreement With Physician NPI Number Write NPI# Here Physician Comment/ Comment or Changes Change Physician Signature Please Sign/Date Here & Date Requested
== END 2025-03-29 23:59 | disposition home or self-care (01) ==
PROVIDERS: PCP Family Medicine; Visit Provider Internal Medicine Hematology & Oncology
DX: C50.911 Malignant neoplasm of unspecified site of right female breast (principal); I89.0 Lymphedema, not elsewhere classified; Z51.89 Encounter for other specified aftercare
CPT/HCPCS: 97035; 97110; 97140; 97165; X5282

== ENCOUNTER 2025-02-11 09:04 | Outpatient (CLI) | payer MEDICARE, SELFPAY | END 2025-02-11 09:05 | disposition home or self-care (01) | LOC: NFLDREF 02-12 18:29 | PROVIDERS: PCP Family Medicine; Referring Provider Family Medicine; Visit Provider Family Medicine | DX: E78.5 Hyperlipidemia, unspecified (principal); M85.851 Other specified disorders of bone density and structure, right thigh; M85.852 Other specified disorders of bone density and structure, left thigh | CPT/HCPCS: 80053; 80061; 82306 ==

== ENCOUNTER 2025-02-18 13:00 | Outpatient (RCR) | payer MEDICARE, SELFPAY ==
--- NOTE | 2024-09-11 14:38 | ONC.NURNOTE ---
Addendum entered by Tiesha Penn RN 09/11/24 15:57: Faxed order to [facility]; they were unable to see electronic order. Pt had not heard from them. Arthrogram cancelled. Pt will wait for OT to call to schedule. Other treatments she's doing for her shoulder are following a chiropractor, Dr. Miley Bro with [facility], red light tx and cold lazer tx at home. Original Note: LM for pt to call back. Per radiology schedulers, somehow pt self-scheduled for a shoulder arthrogram without an ordering provider per the pt portal. This is not supposed to be a process. Review with pt when calls back that arthrogram cancelled; check if been contacted by OT to resume tx.
== END 2025-03-04 23:59 | disposition home or self-care (01) ==
LOC: CCIC 13:00
PROVIDERS: PCP Family Medicine; Referring Provider Family Medicine; Visit Provider Internal Medicine Hematology & Oncology
DX: C50.911 Malignant neoplasm of unspecified site of right female breast (principal); Z17.1 Estrogen receptor negative status [ER-]
CPT/HCPCS: 99213; G0463

== ENCOUNTER 2025-03-27 13:38 | Outpatient (CLI) | payer MEDICARE, SELFPAY ==
--- NOTE | 2025-03-27 14:00 | CRLHL7_ITS ---
For Patients: As a result of the Century Cures Act, medical imaging exams and procedure reports are released immediately into your electronic medical record. You may view this report before your referring provider. If you have questions, please contact your health care provider. XR DXA BONE MINERAL DENSITY (BMD) Current height (in): 64.0. Weight (lb): 138.0. Menopause age: 21. Ethnicity: White. Reason for exam: Osteopenia. 1. Have you had a previous hip or vertebral fracture? Yes. 2. Have you had any fractures during your adult life which did not result from significant trauma (e.g., auto accident)? Yes. 3. Did either of your parents have a hip fracture? No. 4. Do you smoke? No. 5. Have you ever taken Glucocorticoids? Yes. 6. Do you have rheumatoid arthritis? Yes. 7. Do you have secondary osteoporosis? No. 8. Do you drink 3 or more alcoholic drinks per day? No. 9. Are you being treated for osteoporosis? Yes. 10. Have you ever taken any of the following medications: Actonel, Evista, Fosamax, Miacalcin, Reclast, Boniva, Forteo, HRT (i.e. estrogen/hormone therapy), Protelos, Prolia, Vitamin D, Calcium, other ??? please specify. ANSWER: Yes; Fosamax, vitamin D, Protelos, calcium. 11. Do you have any of the following medical conditions: Anorexia or bulimia, asthma or emphysema, end stage renal disease, hyperparathyroidism, any seizure disorders, cancer, inflammatory bowel diseases, hysterectomy, other ??? please specify. ANSWER: Yes; hysterectomy. 12. What was your maximum height (inches)? 66. 13. Do you perform weight bearing exercise regularly? Yes. 14. Do you regularly consume dairy products? Yes. 15. Do you drink caffeinated beverages? Yes. 16. At what age did your period start? 11. 17. Are you premenopausal? No. 18. How many full-term pregnancies have you had? 0. 19. Have you ever missed your period for more than 6 months in a row (not including or menopause)? No. TECHNIQUE: Bone mineral density study was performed using the [employer]. FINDINGS: The results of the study expressed as bone mineral density (BMD) are as follows: Lumbar spine L2 to L4: BMD: 1.133 g/cm2. T-score: 0.5. Z-score: 3.1 Neck Left: BMD: 0.646 g/cm2. T-score: -1.8. Z-score: 0.3 Right: BMD: 0.570 g/cm2. T-score: -2.5. Z-score: -0.4 Total Left: BMD: 0.829 g/cm2. T-score: -0.9. Z-score: 0.9 Right: BMD: 0.742 g/cm2. T-score: -1.6. Z-score: 0.2 IMPRESSION: Osteoporosis. *Comparison exams done prior to 09/2019 were performed on different unit, FAZUA. COMPARISON: Compared with scan of 01/12/2023, the bone mineral density has increased by 2.2 percent at the spine and decreased by 4.1 percent at the hip. Wai Diaz M.D. Diagnostic Radiologist [email or web address] Transcribed: 4:07 pm . DW/Dictated by: Wai Diaz MD @ 03/27/2025 3:44:00 PM (Electronically Signed)
== END 2025-03-27 13:39 | disposition home or self-care (01) ==
LOC: RAD 13:39
PROVIDERS: PCP Family Medicine; Visit Provider Family Medicine
DX: M85.851 Other specified disorders of bone density and structure, right thigh (principal); M85.852 Other specified disorders of bone density and structure, left thigh; M81.0 Age-related osteoporosis without current pathological fracture
CPT/HCPCS: 77080